=== PATIENT | female | born 1995 | race Caucasian/White ===

== ENCOUNTER → 2021-02-18 07:41 | Outpatient (CLI) | payer OTHER, SELFPAY ==
--- NOTE | 2021-02-18 | DI.US.S_ITS ---
LIMITED ULTRASOUND OF RIGHT BREAST: 02/18/2021 CLINICAL: Patient returns today to evaluate a focal asymmetry in the right breast. Color flow, real-time, and Doppler ultrasound of the right breast 4-6 o'clock region were performed. Rodriguez scale images of the real-time examination were reviewed. There is a 0.8 cm complicated cyst in the right breast at 5 o'clock middle depth 7 cm from the nipple. IMPRESSION: PROBABLY BENIGN The 0.8 cm complicated cyst in the right breast is probably benign. A follow-up ultrasound in 6 months is recommended. Prior examination from September 2020 is not yet available for comparison. If these images are received, an addendum will be issued. This exam was interpreted at Station ID: [id number]. Electronically Signed By: Jc Last M.D. jr/:02/19/2021 10:04:34 letter sent: Followup Recommended Ultrasound BI-RADS: 3 Probably benign
== END ==
PROVIDERS: PCP Family Medicine; Referring Provider Family Medicine; Visit Provider Family Medicine
DX: R92.8 Other abnormal and inconclusive findings on diagnostic imaging of breast (principal); N60.01 Solitary cyst of right breast
CPT/HCPCS: 76642

== ENCOUNTER → 2022-03-02 18:41 | Outpatient (CLI) | payer OTHER, SELFPAY ==
--- NOTE | 2022-03-02 18:42 | DI.MRI.S_ITS ---
PROCEDURE: MR ORBITS FACE NECK WO/W CON INDICATIONS: Benign lipomatous neoplasm of skin TECHNIQUE: Sagittal/axial/coronal T1 spin echo and STIR. After the administration of contrast, axial/coronal/sagittal T1 fast spin echo with fat saturation through the neck. COMPARISON: None. FINDINGS: Image quality: Limited by mascara, with susceptibility artifact. Lymph nodes: No enlarged nodes are seen throughout the neck. Vessels: Visualized vasculature appears normal, with normal flow voids and enhancement. Orbits: In this patient with this given history, scrutiny is given to lateral aspect of the left globe. At this site, there is an asymmetric nodule that demonstrates increased signal on T1 weighted imaging and decreased signal on STIR imaging, which measures up to 6 mm craniocaudal. On postcontrast imaging, no significant enhancement is seen. The central portion of this lesion demonstrates decreased signal on the fat saturated postcontrast T1 weighted images. Neck spaces: The oropharynx, nasopharynx and pharynx are unremarkable, without mucosal lesions seen. Vocal cords, false vocal cords, pyriform sinuses, epiglottis, vallecula, and tongue base all appear normal. Extramucosal spaces of the neck also appear unremarkable. Glands: The parotid and submandibular glands appear normal. Thyroid gland demonstrates no significant abnormality. Miscellaneous: Visualized brain and orbits appear normal. Lung apices appear clear. Superficial soft tissues appear normal. Visualized sinuses and mastoids appear clear. Bones: Marrow has normal overall signal. IMPRESSION: 6 mm fatty appearing lesion along the lateral aspect of the left globe, likely benign. Please correlate with known patient history and physical examination findings. Dictated by: Shashank Dee M.D. on 03/03/2022 at 9:45 Approved by: Shashank Dee M.D. on 03/03/2022 at 9:51
== END ==
PROVIDERS: PCP Family Medicine; Referring Provider Ophthalmology; Visit Provider Ophthalmology
DX: D17.39 Benign lipomatous neoplasm of skin and subcutaneous tissue of other sites (principal)
CPT/HCPCS: 70543; A9579

== ENCOUNTER → 2022-11-15 12:15 | Outpatient (CLI) | payer OTHER, SELFPAY ==
--- NOTE | 2022-11-15 | DI.US.S_ITS ---
PROCEDURE: US PELVIC COMPLETE INDICATIONS: BLEEDING AFTER INTERCOURSE / VAGINAL DISCHARGE TECHNIQUE: Real-time scanning was performed of the pelvic organs, with image documentation. Additional endovaginal scanning was necessary due to incomplete visualization of the adnexal and endometrial structures by transabdominal scanning. COMPARISON: None. FINDINGS: Uterus: Uterus is anteverted and normal in size at 8.0 x 4.2 x 4.9 cm. The myometrium is heterogeneous. The endometrium measures 4.0 mm combined thickness. There are 2 uterine fibroids. - 1.3 x 0.8 x 1.1 cm intramural fibroid in the posterior uterine wall at midline. -1.4 x 1.1 x 1.0 cm intramural fibroid in the posterior uterine wall at midline. Ovaries: The right ovary measures 2.2 x 1.6 x 1.1 cm, with a calculated ovarian volume of 2.0 cc. The left ovary measures 0.9 x 2.3 x 1.3 cm, with a calculated ovarian volume of 1.3 cc. The ovaries have a normal sonographic appearance. Less than 12 follicles can be seen in each ovary. No adnexal masses are seen. Other: No pathologic free abdominal or pelvic fluid. IMPRESSION: 1. Myomatous uterus with 2 uterine fibroids. 2. Normal ovaries. We strive to produce accurate, complete, and clear reports of imaging services. To assist us in improving patient care, this report was composed using standard report templates and voice recognition software. Therefore, it may contain abnormal punctuation, insertions and/or omissions. Occasional wrong-word or sound-alike substitutions may occur. Though we review the report and make efforts to correct it, we do recommend that the report be read carefully in proper context to recognize any text inaccuracies. Dictated by: Sabra Deleon M.D. on 11/15/2022 at 14:37 Approved by: Sabra Deleon M.D. on 11/15/2022 at 14:45
== END ==
PROVIDERS: PCP Registered Nurse; Referring Provider Registered Nurse; Visit Provider Registered Nurse
DX: N93.0 Postcoital and contact bleeding (principal); N89.8 Other specified noninflammatory disorders of vagina; D25.1 Intramural leiomyoma of uterus
CPT/HCPCS: 76830; 76856

== ENCOUNTER → 2023-03-03 15:05 | Outpatient (CLI) | payer OTHER, SELFPAY ==
--- NOTE | 2023-03-03 15:06 | DI.US.S_ITS ---
PROCEDURE: US OB <= 14 WEEKS FETUS INDICATIONS: Dating and viability OUTSIDE/PRIOR DATING DATA: Last menstrual period (LMP): Unknown. LMP-based estimated date of delivery (MEREDITH): Unknown. First dating scan (date and location): 03/03/2023. Estimated date of delivery (MEREDITH) from first dating scan: 10/10/2023. The calculations are made using the ultrasound MEREDITH of 10/10/2023. TECHNIQUE: Real-time scanning was performed of the fetus and maternal pelvic organs, with image documentation. Endovaginal scanning was also performed to better visualize the fetus and maternal ovaries. COMPARISON: None. FINDINGS: Embryo: [place]-rump length is 1.9 cm, 8 weeks 3 days Heart rate: 173. A yolk sac is seen. Maternal organs: Ovaries are within normal limits. IMPRESSION: Living early 1st trimester intrauterine with crown-rump length and heartbeat measuring 8 weeks 3 days We strive to produce accurate, complete, and clear reports of imaging services. To assist us in improving patient care, this report was composed using standard report templates and voice recognition software. Therefore, it may contain abnormal punctuation, insertions and/or omissions. Occasional wrong-word or sound-alike substitutions may occur. Though we review the report and make efforts to correct it, we do recommend that the report be read carefully in proper context to recognize any text inaccuracies. Dictated by: Moncho Spain M.D. on 03/03/2023 at 17:15 Approved by: Moncho Spain M.D. on 03/03/2023 at 17:17
== END ==
LOC: US 15:05
PROVIDERS: PCP Registered Nurse; Referring Provider Family Medicine; Visit Provider Family Medicine
DX: Z34.01 Encounter for supervision of normal first pregnancy, first trimester (principal); Z3A.08 8 weeks gestation of pregnancy
CPT/HCPCS: 76801; 76817

== ENCOUNTER → 2023-03-14 12:21 | Outpatient (CLI) | payer OTHER, SELFPAY ==
[2023-03-14 13:05] LABS: Add Manual Diff / Slide Review NO; Basophils Absolute Auto 100 /uL (0-100); Basophils Percent Auto 0.5 % (0-2); Eosinophils Absolute Auto 100 /uL (0-450); Eosinophils Percent Auto 0.8 % (2-4); Hematocrit 41.6 % (36-46); Hemoglobin 14.3 g/dL (12.0-16.0); Lymphocytes Absolute Auto 2300 /uL (1100-4500); Lymphocytes Percent Auto 22.4 % (25-40); Mean Corpuscular HGB Conc 34.3 % (30-36); Mean Corpuscular Hemoglobin 30.4 PG (26-34); Mean Corpuscular Volume 88.6 fL (80-100); Monocytes Absolute Auto 500 /uL (0-900); Monocytes Percent Auto 5.2 % (3-14); Neutrophils Absolute Auto 7100 /uL (1500-7000); Neutrophils Percent Auto 71.1 % (50-75); Platelet Count 356 X10^3/uL (150-400); Red Blood Cell Count 4.69 X10^6/uL (4.0-5.2); Red Cell Distribution Width 14.1 % (11.6-14.8); White Blood Cell Count 10.1 X10^3/uL (4.5-11.0)
[2023-03-14 16:55] LABS: Appearance Urine UA CLEAR; Bilirubin Urine UA NEGATIVE (NEGATIVE); Color Urine UA YELLOW; Glucose Urine UA NEGATIVE (Negative); Ketones Urine UA NEGATIVE (NEGATIVE); Leukocyte Esterase Urine UA NEGATIVE (NEGATIVE); Nitrite Urine UA POSITIVE (Negative); Occult Blood Urine UA NEGATIVE (Negative); Protein Urine UA NEGATIVE (Negative); Specific Gravity Urine UA <=1.005 (1.000-1.035); Urobilinogen Urine UA 0.2 E.U./dL (0.2)
[2023-03-14 17:10] LABS: HIV 1 & 2 Ab/Ag 4th Gen Combo NEGATIVE (NEGATIVE); Hep C Virus Ab w/Reflex Quant NEGATIVE s/c (NEGATIVE); Hepatitis B Surface Antigen NEGATIVE s/c (NEGATIVE); Rubella Antibody IgG 20.4 IU/mL (>15)
[2023-03-14 18:16] LABS: Urine N gonorrhoeae NOT DETECTED
[2023-03-14 18:22] LABS: pH Urine UA 6.5 (4.5-8.0)
[2023-03-14 18:24] LABS: Bacteria Urine Many (>30); Culture Indicated Urine Cult Not Indicated; RBC Urine 0-1/HPF (0-5/HPF); Squamous Epithelial Cell Urine 1-5 /HPF (0-5/HPF); WBC Urine 5-10/HPF (0-5/HPF)
[2023-03-14 19:02] LABS: Urine Chlamydia NOT DETECTED
[2023-03-15 06:32] LABS: RPR Screen Non Reactive (Non Reactive)
[2023-03-15 17:36] LABS: Varicella IgG Antibody <135 index (Immune >165)
== END ==
PROVIDERS: PCP Registered Nurse; Referring Provider Family Medicine; Visit Provider Family Medicine
DX: Z34.01 Encounter for supervision of normal first pregnancy, first trimester
CPT/HCPCS: 36415; 80055; 81003; 81015; 86787; 86803; 86850; 86900; 86901; 87077; 87086; 87186; 87389; 87491; 87591

== ENCOUNTER → 2023-03-24 15:59 | Outpatient (CLI) | payer OTHER, SELFPAY | PROVIDERS: PCP Registered Nurse; Referring Provider Family Medicine; Visit Provider Family Medicine | DX: Z34.81 Encounter for supervision of other normal pregnancy, first trimester (principal) | CPT/HCPCS: 36415 ==

== ENCOUNTER → 2023-04-27 12:40 | Outpatient (CLI) | payer OTHER, SELFPAY ==
[2023-04-27 15:16] LABS: Vitamin B12 719 pg/mL (239-931)
[2023-05-03 13:21] LABS: AFP Value 55.3 ng/mL (.); Gest Age on Col Date 16.3 weeks (.); Gestational Age EDD (.); Insulin Dep Diabetes No (.); OSBR Risk 1IN 2734 (.); Results Report (.); Test Results *Screen Negative* (.)
== END ==
PROVIDERS: PCP Registered Nurse; Referring Provider Family Medicine; Visit Provider Family Medicine
DX: Z34.00 Encounter for supervision of normal first pregnancy, unspecified trimester (principal)
CPT/HCPCS: 82105; 82607

== ENCOUNTER → 2023-05-23 15:09 | Outpatient (CLI) | payer OTHER, SELFPAY ==
--- NOTE | 2023-05-23 15:11 | DI.US.S_ITS ---
PROCEDURE: US OB >= 14 WEEKS FETUS INDICATIONS: ANATOMY OUTSIDE/PRIOR DATING DATA: Last menstrual period (LMP): Unknown. LMP-based estimated date of delivery (MEREDITH): Unknown. First dating scan (date and location): 03 03 2023. Estimated date of delivery (MEREDITH) from first dating scan: 10/10/2023. The calculations are made using the working MEREDITH of 10/10/2023. TECHNIQUE: Real-time scanning was performed of the fetus, with image documentation and biometric measurements. Endovaginal scanning: None COMPARISON: None. FINDINGS: General: A single living intrauterine gestation is present. Presentation: Variable Placenta: Placental position is posterior , without previa. Incidental placental venous wynne 9.9 x 1.8 x 1.3 cm Amniotic fluid index: 16.3 cm, normal range is 5-24 cm. Single deepest vertical pocket is 5.2 cm. heart rate: 147 beats per minute. Maternal cervical canal: 4.4 cm long. Normal lower limit is 2.5 cm. biometrics: Biparietal diameter: 4.9 cm, 20 week 6 day Head circumference: 17.8 cm, 20 week 2 day Abdominal circumference: 16.2 cm, 21 week 2 day Femur length: 3.2 cm, 19 week 6 day Clinically estimated gestational age: 20 week 0 day Composite gestational age from present scan: 20 week 4 day Estimated weight and percentile: 367 g, 80 percentile Anatomic survey: Neuro: Ventricles are non-dilated at less than 10 mm. Cisterna magna is normal at 3-11 mm. Cerebellum is normal in size and morphology. Nuchal skin fold: Normal at less than 6 mm between 14-21 weeks gestational age. Face: Nose and lips, facial profile are normal. Spine: No evidence for spina bifida. Heart: 4-chambered heart is present, with normal ventricular outflow tracts. Diaphragm: Diaphragm is intact. Stomach: Left-sided stomach is present. Kidneys: No hydronephrosis. Normal is less than 5 mm in 2nd trimester, less than 7 mm in 3rd trimester. Cord: 3-vessel cord has orthotopic insertion. Bladder: Normal in size. Extremities: All 4 extremities identified. IMPRESSION: Single live intrauterine consistent with 20 week 4 day gestation by current ultrasound. Normal anatomic survey Approved by: Norman Isidro M.D. on 05/23/2023 at 17:46
== END ==
PROVIDERS: PCP Registered Nurse; Referring Provider Family Medicine; Visit Provider Family Medicine
DX: Z34.02 Encounter for supervision of normal first pregnancy, second trimester (principal); Z3A.20 20 weeks gestation of pregnancy
CPT/HCPCS: 76811

== ENCOUNTER 2023-06-05 19:48 | Emergency (ER) | payer OTHER, SELFPAY ==
[2023-06-05 19:55] VITALS: BP 116/72; PULSE 77; RESP 16; TEMP 36.8; O2SAT 100; BMI 25.4
--- NOTE | 2023-06-05 20:10 | ED_ITS ---
HPI - Abdominal Pain General Chief Complaint: Abdominal Pain Stated Complaint: chest lower back abd pain, 22 wks Time Seen by Provider: 06/05/23 20:03 Source: patient Mode of arrival: Ambulatory History of Present Illness HPI narrative: 27-year-old at approximately 22 weeks gestational age presents with upper and lower abdominal cramping and nausea. Patient states that pain started in a ?band? across her upper abdomen and radiated around to her back. It eventually spread to her lower abdomen. Worse with deep breathing and standing up. Denies vaginal bleeding, loss of fluids, contractions. Reports good movement. Has established OBGYN care for this . She called the OB triage line and they referred her to the emergency department for workup. Related Data Home Medications Medication Instructions Recorded Confirmed escitalopram oxalate 10 mg tablet 10 mg PO DAILY 03/03/23 05/04/23 vitamin-ferrous sulfate tab PO 03/03/23 05/04/23 27 mg iron-folic acid 0.8 mg tablet azelaic acid 15 % topical gel topical 05/04/23 05/04/23 mecobalamin (vitamin B12) 1,000 1,000 mcg sublingual DAILY 05/04/23 05/04/23 mcg disintegrating tablet,sublingual Previous Rx's Medication Instructions Recorded ondansetron 4 mg disintegrating 4 mg PO Q8H PRN nausea and 03/14/23 tablet vomiting #30 tabs dicyclomine 20 mg tablet 20 mg PO QID #30 tabs 06/05/23 doxylamine 10 mg-pyridoxine (vit 1 tab PO BID #30 tabs 06/05/23 B6) 10 mg tablet,delayed release (Diclegis) Allergies Allergy/AdvReac Type Severity Reaction Status Date / Time cephalexin [From Keflex] AdvReac Hives Verified 06/05/23 19:55 Review of Systems Review of Systems Narrative: See HPI Patient History Medical History Bartholin cyst (~2012) Eczema Anisocoria Skin rash Surgical History History of breast reconstruction (~2020) History of removal of skin mole [place] teeth extracted Family History Father Skin cancer Grandfather Skin cancer Prostate cancer Hypertension Rheumatoid arthritis Grandmother Ovarian cyst H/O: hysterectomy Stroke Osteoarthritis Mother Arthritis Social History marital status: unmarried,living together number of children: 0 household members: significant other lives independently: Yes caregiver/support person: No housing: house pets and animals: Yes (2 cats, 1 dog) education level: college occupational status: employed current occupational exposures/hazards: No special philip needs: No travel history: over 6 months ago seatbelt use: always helmet use: Yes water heater temp set < 120 deg: Yes working smoke detector in home: Yes fire extinguisher in home: Yes carbon monox detector in home: Yes firearms in home: Yes firearms unloaded and locked: Yes do you feel safe at home: Yes Smoking Status: Never smoker second hand exposure: No alcohol intake: former substance use type: does not use during the past year weight has: decreased > 10 lbs well-balanced diet: about half the time daily servings fruits/ve-4 caffeine: Yes (aware of 200mg limit) Type(s) of exercise: aerobic and bicycling Smoking Status: Never smoker Substance Use Type: does not use Exam Initial Vital Signs Initial Vital Signs: Vital Signs Temperature 98.3 F 06/05/23 19:55 Pulse Rate 77 06/05/23 19:55 Respiratory Rate 16 06/05/23 19:55 Blood Pressure 116/72 06/05/23 19:55 Pulse Oximetry 100 06/05/23 19:55 Oxygen Delivery Method Room Air 06/05/23 19:55 Const: Awake, alert, no acute distress, nontoxic appearing Cardiac: regular rate, regular rhythm RESP: unlabored, clear bilaterally, no wheezing GI: Soft, generalized tenderness to deep palpation, uterine fundus palpable near umbilicus Skin: Warm, Dry, intact, no rashes Neuro: AO x3, CN II-XII grossly intact, moves all extremities Course Orders Ordered: ED Orders 06/05/23 20:25 Lipase Stat 06/05/23 20:27 CBC Auto Diff [Complete Blood Count AUTO DIFF] Stat CMP [Comprehensive Metabolic Panel] Stat 06/05/23 20:47 UA Complete [Urinalysis and Microscopic] Stat Discontinued Medications Acetaminophen (Acetaminophen 325 Mg Tablet) 975 mg PO NOW ONE Stop: 06/05/23 21:43 Last Admin: 06/05/23 21:48 Dose: 975 mg Documented By: JUNIE Dicyclomine HCl (Dicyclomine 10 Mg Capsule) 20 mg PO NOW ONE Stop: 06/05/23 20:10 Last Admin: 06/05/23 20:51 Dose: 20 mg Documented By: JUNIE Sodium Chloride (Normal Saline 0.9%) 1,000 mls @ 1,000 mls/hr IV BOLUS ONE Stop: 06/05/23 21:08 Last Infusion: 06/05/23 21:43 Dose: Infused Documented By: Admin: 06/05/23 20:51 Dose: 1,000 mls/hr Documented By: JUNIE Metoclopramide HCl (Metoclopramide 10 Mg/2 Ml Inj) 10 mg IV NOW ONE Stop: 06/05/23 20:10 Last Admin: 06/05/23 20:51 Dose: 10 mg Documented By: JUNIE Vital Signs Vital signs: Vital Signs - 8 hr 06/05/23 19:55 06/05/23 20:30 06/05/23 20:31 Temperature 98.3 F Pulse Rate 77 83 82 Respiratory Rate 16 20 20 Blood Pressure 116/72 Pulse Oximetry 100 100 100 Oxygen Delivery Method Room Air 06/05/23 20:31 Temperature Pulse Rate Respiratory Rate Blood Pressure 116/71 Pulse Oximetry Oxygen Delivery Method MDM - Abdominal Pain Differential Diagnosis Differential diagnosis: Likely abdominal pain, constipation and gastroenteritis Lab Data 06/05/23 20:27 06/05/23 20:27 Labs: Lab Results 06/05/23 06/05/23 06/05/23 Range/Units 20:25 20:27 20:47 WBC 12.6 H (4.5-11.0) X10^3/uL RBC 3.80 L (4.0-5.2) X10^6/uL Hgb 11.9 L (12.0-16.0) g/dL Hct 34.6 L (36-46) % MCV 91.0 (80-100) fL MCH 31.3 (26-34) PG MCHC 34.4 (30-36) % RDW 13.7 (11.6-14.8) % Plt Count 358 (150-400) X10^3/uL Neut % (Auto) 69.7 (50-75) % Lymph % (Auto) 23.1 L (25-40) % [place] % (Auto) 5.3 (3-14) % Eos % (Auto) 1.6 L (2-4) % Baso % (Auto) 0.3 (0-2) % Neut # (Auto) 8800 H (0564-4046) /uL Lymph # (Auto) 2900 (8947-1328) /uL [place] # (Auto) 700 (0-900) /uL Eos # (Auto) 200 (0-450) /uL Baso # (Auto) 0 (0-100) /uL Sodium 136 L (137-145) mmol/L Potassium 3.2 L (3.4-5.1) mmol/L Chloride 107 (98-107) mmol/L Carbon Dioxide 23 (22-32) mmol/L BUN 6 L (7-17) mg/dL Creatinine 0.37 L (0.52-1.04) mg/dL Estimated GFR > 60 (>60) mL/min BUN/Creatinine Ratio 16.2 (6-22) Glucose 90 (70-100) mg/dL Calcium 9.3 (8.4-10.2) mg/dL Total Bilirubin 0.3 (0.2-1.3) mg/dL AST 31 (14-36) IU/L ALT 31 (<35) IU/L Alkaline Phosphatase 102 (38-126) U/L Total Protein 6.8 (6.3-8.2) g/dL Albumin 3.8 (3.5-5.0) g/dL Globulin 3.0 (1.7-4.1) g/dL Albumin/Globulin Ratio 1.3 (1.0-2.8) Lipase 192 (23-300) U/L Urine Color Yellow Urine Appearance Clear Urine pH 6.0 (4.5-8.0) Ur Specific [place] 1.010 (1.000-1.035) Urine Protein Negative (Negative) Urine Glucose (UA) Negative (Negative) g/dL Urine Ketones Negative (NEGATIVE) Urine Occult Blood Negative (Negative) Urine Nitrate Negative (Negative) Urine Bilirubin Negative (NEGATIVE) Urine Urobilinogen 0.2 (0.2) E.U./dL Ur Leukocyte Esterase Negative (NEGATIVE) Urine RBC None seen (0-5/HPF) Urine WBC None seen (0-5/HPF) Ur Squamous Epith Cells None seen (0-5/HPF) Urine Bacteria None seen (None) Ur Culture Indicated? Cult not indicated Vol Urine Centrifuged 10ml (spun) Point of care testing: Urine Dip Bedside Urine Glucose Negative Bedside Urine Bilirubin - Negative Bedside Urine Ketone - Negative Urine Specific [place] 1.015 Bedside Urine Occult Blood - Negative Bedside Urine pH 6.0 Bedside Urine Protein - Negative Bedside Urine Urobilinogen - Negative Bedside Urine Nitrite - Negative Bedside Urine Leukocytes - Negative Esterase MDM Narrative Medical decision making narrative: Well-appearing patient with generalized abdominal cramping and nausea in 2nd trimester . Abdomen is soft, she reports generalized tenderness to deep palpation in all quadrants, there is no rebound or guarding or specific focality to the pain. Uterus is in appropriate position. heart tones in the 140s. Laboratory work is reviewed, there is leukocytosis with WBC count 12.6, hemoglobin 11.9, these are expected and normal in . Other laboratory work is without acute abnormalities. Electrolytes are within normal limits, lipase is normal. Urinalysis negative for bacteria or other signs of infection. Patient received IV fluids, Zofran, Bentyl. She was tolerating water without vomiting. Dr. Moya on-call OBGYN stated at this point only heart tones indicated from OB standpoint since patient is pre-viability still. Patient counseled on all lab findings, uncertain etiology of patient's symptoms, question if early gastroenteritis, however at this time there is very low suspicion for any other acute process such as cholecystitis or appendicitis based on the otherwise benign abdominal exam. Patient states that she has OBGYN follow up in the next 3 days. ED return precautions discussed at bedside. Discharge Plan Departure Patient Disposition: Home Clinical Impression: Abdominal pain Qualifiers: Abdominal location: generalized Qualified Code(s): R10.84 - Generalized abdominal pain Instructions: DI for Abdominal Pain-Adult Activity Restrictions/Additional Instructions: Diclegis can be used for nausea. Use the bentyl as prescribed for abdominal spasms. Follow up as scheduled with your OBGYN Prescriptions: New dicyclomine 20 mg tablet 20 mg PO QID Qty: 30 0RF doxylamine-pyridoxine (vit B6) [Diclegis] 10-10 mg tablet,delayed release (DR/EC) 1 tab PO BID Qty: 30 0RF No Action ondansetron 4 mg tablet,disintegrating 4 mg PO Q8H PRN (Reason: nausea and vomiting) Qty: 30 1RF azelaic acid 15 % gel topical mecobalamin (vitamin B12) 1,000 mcg tablet,disintegrating 1,000 mcg sublingual DAILY Rx Instructions: place tablet under tongue and allow to dissolve for at least30 secs before swallowing vit-ferrous sulfat-FA 27 mg iron- 0.8 mg tablet PO escitalopram oxalate 10 mg tablet 10 mg PO DAILY Referrals: Neeru Santoro ARNP [Primary Care Provider] - Stand Alone Forms: Patient Portal/API
[2023-06-05 20:30] VITALS: PULSE 83; RESP 20; O2SAT 100
[2023-06-05 20:31] VITALS: BP 116/71; PULSE 82; RESP 20; O2SAT 100
[2023-06-05] MEDS: DICYCLOMINE 10 MG CAPSULE 20 MG PO (20:51)
[2023-06-05] MEDS: METOCLOPRAMIDE 10 MG/2 ML INJ IV (20:51)
[2023-06-05] MEDS: SODIUM CHLORIDE 0.9% 1,000 ML 1000 ML IV (20:51)
[2023-06-05 21:04] LABS: Lipase 192 U/L (23-300)
[2023-06-05 21:09] LABS: Appearance Urine UA CLEAR; Bilirubin Urine UA NEGATIVE (NEGATIVE); Color Urine UA YELLOW; Glucose Urine UA NEGATIVE (Negative); Ketones Urine UA NEGATIVE (NEGATIVE); Leukocyte Esterase Urine UA NEGATIVE (NEGATIVE); Nitrite Urine UA NEGATIVE (Negative); Occult Blood Urine UA NEGATIVE (Negative); Protein Urine UA NEGATIVE (Negative); Urobilinogen Urine UA 0.2 E.U./dL (0.2)
[2023-06-05 21:17] LABS: Bacteria Urine None Seen; RBC Urine None Seen (0-5/HPF); Urine Volume 10mL (spun); WBC Urine None Seen (0-5/HPF)
[2023-06-05 21:18] LABS: Culture Indicated Urine Cult Not Indicated; Squamous Epithelial Cell Urine None Seen (0-5/HPF)
[2023-06-05 21:27] LABS: Add Manual Diff / Slide Review NO; Basophils Absolute Auto 0 /uL (0-100); Basophils Percent Auto 0.3 % (0-2); Eosinophils Absolute Auto 200 /uL (0-450); Eosinophils Percent Auto 1.6 % (2-4); Hematocrit 34.6 % (36-46); Hemoglobin 11.9 g/dL (12.0-16.0); Lymphocytes Absolute Auto 2900 /uL (1100-4500); Lymphocytes Percent Auto 23.1 % (25-40); Mean Corpuscular HGB Conc 34.4 % (30-36); Mean Corpuscular Hemoglobin 31.3 PG (26-34); Monocytes Absolute Auto 700 /uL (0-900); Monocytes Percent Auto 5.3 % (3-14); Neutrophils Absolute Auto 8800 /uL (1500-7000); Neutrophils Percent Auto 69.7 % (50-75); Platelet Count 358 X10^3/uL (150-400); Red Cell Distribution Width 13.7 % (11.6-14.8); White Blood Cell Count 12.6 X10^3/uL (4.5-11.0)
[2023-06-05 21:34] LABS: Alanine Aminotransferase 31 IU/L (<35); Albumin 3.8 g/dL (3.5-5.0); Albumin Globulin Ratio 1.3 (1.0-2.8); Alkaline Phosphatase 102 U/L (38-126); Aspartate Aminotransferase 31 IU/L (14-36); BUN Creatinine Ratio 16.2 (6-22); Bilirubin Total 0.3 mg/dL (0.2-1.3); Blood Urea Nitrogen 6 mg/dL (7-17); Calcium 9.3 mg/dL (8.4-10.2); Carbon Dioxide 23 mmol/L (22-32); Chloride 107 mmol/L (98-107); Estimated Glomerular Filt Rate > 60 mL/min (>60); Glucose 90 mg/dL (70-100); HEMOLYSIS < 15 (0-50); Potassium 3.2 mmol/L (3.4-5.1); Sodium 136 mmol/L (137-145); Total Protein 6.8 g/dL (6.3-8.2)
[2023-06-05] MEDS: ACETAMINOPHEN 325 MG TABLET 975 MG PO (21:48)
== END 2023-06-05 22:05 | disposition home or self-care (01) ==
PROVIDERS: Emergency Provider Emergency Medicine; PCP Registered Nurse
DX: O26.892 Other specified pregnancy related conditions, second trimester (principal); R10.84 Generalized abdominal pain; Z3A.22 22 weeks gestation of pregnancy
CPT/HCPCS: 36415; 80053; 81001; 81003; 83690; 85025; 96374; 99284; J2765

== ENCOUNTER → 2023-06-29 07:01 | Outpatient (CLI) | payer OTHER, SELFPAY ==
[2023-06-29 08:58] LABS: HEMOLYSIS < 15 (0-50); Iron 69 ug/dL (37-170)
[2023-06-29 09:03] LABS: GTT (PREG) 1 Hour PP 50gm Dose 112 mg/dL (76-139)
[2023-06-29 09:09] LABS: Percent Iron Saturation 15 % (15-50); Total Iron Binding Capacity 473 ug/dL (265-497); Transferrin 364 mg/dL (206-381)
== END ==
PROVIDERS: PCP Registered Nurse; Referring Provider Family Medicine; Visit Provider Family Medicine
DX: Z34.00 Encounter for supervision of normal first pregnancy, unspecified trimester (principal)
CPT/HCPCS: 36415; 82950; 83540; 83550

== ENCOUNTER → 2023-07-06 10:14 | Outpatient (CLI) | payer OTHER, SELFPAY ==
[2023-07-06 11:29] LABS: Ferritin 6 ng/mL (6-137)
[2023-07-06 13:10] LABS: Appearance Urine UA CLEAR; Bilirubin Urine UA NEGATIVE (NEGATIVE); Color Urine UA YELLOW; Glucose Urine UA NEGATIVE (Negative); Ketones Urine UA NEGATIVE (NEGATIVE); Leukocyte Esterase Urine UA NEGATIVE (NEGATIVE); Nitrite Urine UA NEGATIVE (Negative); Occult Blood Urine UA NEGATIVE (Negative); Protein Urine UA NEGATIVE (Negative); Urobilinogen Urine UA 0.2 E.U./dL (0.2)
[2023-07-06 13:14] LABS: Urine Volume 10mL (spun); pH Urine UA 5.5 (4.5-8.0)
[2023-07-06 13:16] LABS: Bacteria Urine None Seen; Culture Indicated Urine Cult Not Indicated; RBC Urine None Seen (0-5/HPF); Squamous Epithelial Cell Urine None Seen (0-5/HPF); WBC Urine None Seen (0-5/HPF)
== END ==
PROVIDERS: PCP Registered Nurse; Referring Provider Family Medicine; Visit Provider Family Medicine
DX: G25.81 Restless legs syndrome (principal); N94.89 Other specified conditions associated with female genital organs and menstrual cycle
CPT/HCPCS: 36415; 81001; 82728

== ENCOUNTER 2023-07-21 08:59 | Emergency (ER) | payer OTHER, SELFPAY ==
[2023-07-21] VITALS (8 sets, daily range): BP systolic 103–114; BP diastolic 60–72; PULSE 86–99; RESP 17–25; TEMP 36.6; O2SAT 98–99; BMI 28.1
--- NOTE | 2023-07-21 09:42 | ED.CHESTPAIN ---
HPI - Chest Pain General Chief Complaint: Chest Pain Stated Complaint: chest tightness, hot flashes, cold sweats Time Seen by Provider: 07/21/23 09:33 Source: patient Mode of arrival: Family Vehicle Limitations: no limitations History of Present Illness HPI narrative: Patient is a 27-year-old female currently 28 weeks presenting today with heart palpitations. She reports that she was sitting at her desk when she felt like her heart was fluttering she got dizzy some headache. Did not pass out. Minimal shortness of breath. No significant abdominal pain nausea or vomiting. No vaginal bleeding. She has had some heart palpitations off and on throughout but not quite like this. She still feels it a little bit she is noted to be mildly tachycardic overall appears well. She reports that she has night sweats which is not abnormal for her but no real fever. Related Data Home Medications Medication Instructions Recorded Confirmed escitalopram oxalate 10 mg tablet 10 mg PO DAILY 03/03/23 07/06/23 vitamin-ferrous sulfate tab PO 03/03/23 07/06/23 27 mg iron-folic acid 0.8 mg tablet azelaic acid 15 % topical gel topical 05/04/23 07/06/23 mecobalamin (vitamin B12) 1,000 1,000 mcg sublingual DAILY 05/04/23 07/06/23 mcg disintegrating tablet,sublingual Previous Rx's Medication Instructions Recorded ondansetron 4 mg disintegrating 4 mg PO Q8H PRN nausea and 03/14/23 tablet vomiting #30 tabs dicyclomine 20 mg tablet 20 mg PO QID #30 tabs 06/05/23 doxylamine 10 mg-pyridoxine (vit 1 tab PO BID #30 tabs 06/05/23 B6) 10 mg tablet,delayed release (Diclegis) ferumoxytol 510 mg/17 mL (30 510 mg (17 mL) IV Q3D 2 doses 07/06/23 mg/mL) intravenous solution (Feraheme) hydroxyzine pamoate 25 mg capsule 25 mg PO TID PRN restless leg(s) 07/18/23 (Vistaril) #90 caps Allergies Allergy/AdvReac Type Severity Reaction Status Date / Time cephalexin [From Keflex] AdvReac Hives Verified 07/21/23 09:26 Patient History Medical History Bartholin cyst (~2012) Eczema Anisocoria Skin rash Surgical History History of breast reconstruction (~2020) History of removal of skin mole [place] teeth extracted Family History Father Skin cancer Grandfather Skin cancer Prostate cancer Hypertension Rheumatoid arthritis Grandmother Ovarian cyst H/O: hysterectomy Stroke Osteoarthritis Mother Arthritis Social History marital status: unmarried,living together number of children: 0 household members: significant other lives independently: Yes caregiver/support person: No housing: house pets and animals: Yes (2 cats, 1 dog) education level: college occupational status: employed current occupational exposures/hazards: No special philip needs: No travel history: over 6 months ago seatbelt use: always helmet use: Yes water heater temp set < 120 deg: Yes working smoke detector in home: Yes fire extinguisher in home: Yes carbon monox detector in home: Yes firearms in home: Yes firearms unloaded and locked: Yes do you feel safe at home: Yes Smoking Status: Never smoker second hand exposure: No alcohol intake: former substance use type: does not use during the past year weight has: decreased > 10 lbs well-balanced diet: about half the time daily servings fruits/ve-4 caffeine: Yes (aware of 200mg limit) Type(s) of exercise: aerobic and bicycling Smoking Status: Never smoker alcohol intake frequency: 0-2 drinks per day Substance Use Type: does not use Exam Initial Vital Signs Initial Vital Signs: Vital Signs Temperature 98 F 07/21/23 09:21 Pulse Rate 99 H 07/21/23 09:21 Respiratory Rate 18 07/21/23 09:21 Blood Pressure 114/72 07/21/23 09:21 Pulse Oximetry 98 07/21/23 09:21 Oxygen Delivery Method Room Air 07/21/23 09:21 Course Orders Ordered: Discontinued Medications Sodium Chloride (Normal Saline 0.9%) 1,000 mls @ 1,000 mls/hr IV BOLUS ONE Stop: 07/21/23 10:47 Last Infusion: 07/21/23 11:07 Dose: Infused Documented By: Admin: 07/21/23 09:56 Dose: 1,000 mls/hr Documented By: RADHA Vital Signs Vital signs: Vital Signs - 8 hr 07/21/23 11:05 07/21/23 11:30 07/21/23 12:00 Pulse Rate 94 H 87 87 Respiratory Rate 25 H 17 19 Blood Pressure Pulse Oximetry 99 99 07/21/23 12:04 Pulse Rate Respiratory Rate Blood Pressure 103/68 Pulse Oximetry MDM - Chest Pain Lab Data 07/21/23 09:42 07/21/23 09:42 Labs: Lab Results 07/21/23 Range/Units 09:42 WBC 15.1 H (4.5-11.0) X10^3/uL RBC 3.50 L (4.0-5.2) X10^6/uL Hgb 10.8 L (12.0-16.0) g/dL Hct 31.3 L (36-46) % MCV 89.5 (80-100) fL MCH 30.9 (26-34) PG MCHC 34.5 (30-36) % RDW 13.3 (11.6-14.8) % Plt Count 354 (150-400) X10^3/uL Neut % (Auto) 77.9 H (50-75) % Lymph % (Auto) 15.5 L (25-40) % Humphreys % (Auto) 5.5 (3-14) % Eos % (Auto) 0.8 L (2-4) % Baso % (Auto) 0.3 (0-2) % Neut # (Auto) 22320 H (9002-3253) /uL Lymph # (Auto) 2300 (6744-7952) /uL [place]ys # (Auto) 800 (0-900) /uL Eos # (Auto) 100 (0-450) /uL Baso # (Auto) 100 (0-100) /uL PT 11.0 (9.4-12.5) SECONDS INR 1.0 (0.9-1.3) APTT 30 (25.1-36.5) SECONDS Sodium 133 L (137-145) mmol/L Potassium 3.7 (3.4-5.1) mmol/L Chloride 107 (98-107) mmol/L Carbon Dioxide 19 L (22-32) mmol/L BUN 7 (7-17) mg/dL Creatinine 0.37 L (0.52-1.04) mg/dL Estimated GFR > 60 (>60) mL/min BUN/Creatinine Ratio 18.9 (6-22) Glucose 103 H (70-100) mg/dL Calcium 8.3 L (8.4-10.2) mg/dL Magnesium 1.9 (1.6-2.3) mg/dL Total Bilirubin 0.4 (0.2-1.3) mg/dL AST 28 (14-36) IU/L ALT 23 (<35) IU/L Alkaline Phosphatase 113 (38-126) U/L Total Creatine Kinase 38 (30-135) U/L Troponin I < 0.012 (0.01-0.034) ng/mL Total Protein 6.4 (6.3-8.2) g/dL Albumin 3.7 (3.5-5.0) g/dL Globulin 2.7 (1.7-4.1) g/dL Albumin/Globulin Ratio 1.4 (1.0-2.8) Lipase 142 (23-300) U/L Urine Dip Bedside Urine Glucose Negative Bedside Urine Bilirubin - Negative Bedside Urine Ketone - Negative Urine Specific [place] 1.015 Bedside Urine Occult Blood - Negative Bedside Urine pH 6.0 Bedside Urine Protein - Negative Bedside Urine Urobilinogen - Negative Bedside Urine Nitrite - Negative ECG Data Attestation: I personally reviewed and interpreted this ECG as follows: Interpretation: Normal sinus rhythm rate 90 LA interval 128 QRS [address] changes voltage noted in lead 3 MDM Narrative Medical decision making narrative: Patient 27-year-old female overall appears well 28 weeks . Having some heart palpitations. Noted to be tachycardic with actually improves with rest and IV fluids. Blood work has been reviewed she is WBC 15.1 previously 12.6 thought to be secondary to . Also mild anemia hemoglobin 10.8 previously 11.9 with hematocrit 31.3 previously 34.6 also thought secondary to . Platelets 354 Sodium 133, potassium 3.7, chloride 107, carbon dioxide 19 BUN 7, creatinine 0.37, glucose 103, bilirubin 0.4, AST 28, ALT 23, troponin negative, lipase 142, urinalysis no protein no leukocytes no nitrates EKG has been reviewed without any ischemia Patient has no evidence of preeclampsia blood pressure has been stable she had no protein in her urine having some heart palpitations mildly tachycardic no evidence of infection. At this time recommend staying hydrated may require Holter monitor she has not hypoxic or in bleeding shortness of breath unlikely to be pulmonary embolism. Discharge Plan Departure Patient Disposition: Home Clinical Impression: Heart palpitations Instructions: DI for Palpitations Activity Restrictions/Additional Instructions: *You have been diagnosed with heart palpitations *What to do: At this time continue to increase fluids. Please follow-up with OBGYN *Continue to take medications as directed *Follow up with your primary care provider in 2-3 days or call [phone] *Return to ER if you should have increasing palpitations chest pain shortness of breath abdominal pain vaginal bleeding [or] any new, worsening or concerning symptoms Prescriptions: No Action ondansetron 4 mg tablet,disintegrating 4 mg PO Q8H PRN (Reason: nausea and vomiting) Qty: 30 1RF azelaic acid 15 % gel topical mecobalamin (vitamin B12) 1,000 mcg tablet,disintegrating 1,000 mcg sublingual DAILY Rx Instructions: place tablet under tongue and allow to dissolve for at least30 secs before swallowing ferumoxytol [Feraheme] 510 mg/17 mL (30 mg/mL) solution 510 mg IV Q3D Rx Instructions: Give over 30 minutes every 3-8 days for two doses. hydroxyzine pamoate [Vistaril] 25 mg capsule 25 mg PO TID PRN (Reason: restless leg(s)) Qty: 90 2RF vit-ferrous sulfat-FA 27 mg iron- 0.8 mg tablet PO escitalopram oxalate 10 mg tablet 10 mg PO DAILY dicyclomine 20 mg tablet 20 mg PO QID Qty: 30 0RF doxylamine-pyridoxine (vit B6) [Diclegis] 10-10 mg tablet,delayed release (DR/EC) 1 tab PO BID Qty: 30 0RF Referrals: Neeru Santoro ARNP [Primary Care Provider] - Stand Alone Forms: Patient Portal/API
[2023-07-21] MEDS: SODIUM CHLORIDE 0.9% 1,000 ML 1000 ML IV (09:56)
[2023-07-21 09:57] LABS: Add Manual Diff / Slide Review NO; Basophils Absolute Auto 100 /uL (0-100); Basophils Percent Auto 0.3 % (0-2); Eosinophils Absolute Auto 100 /uL (0-450); Eosinophils Percent Auto 0.8 % (2-4); Hematocrit 31.3 % (36-46); Hemoglobin 10.8 g/dL (12.0-16.0); Lymphocytes Absolute Auto 2300 /uL (1100-4500); Lymphocytes Percent Auto 15.5 % (25-40); Mean Corpuscular HGB Conc 34.5 % (30-36); Mean Corpuscular Hemoglobin 30.9 PG (26-34); Mean Corpuscular Volume 89.5 fL (80-100); Monocytes Absolute Auto 800 /uL (0-900); Monocytes Percent Auto 5.5 % (3-14); Neutrophils Absolute Auto 11700 /uL (1500-7000); Neutrophils Percent Auto 77.9 % (50-75); Platelet Count 354 X10^3/uL (150-400); Red Cell Distribution Width 13.3 % (11.6-14.8); White Blood Cell Count 15.1 X10^3/uL (4.5-11.0)
[2023-07-21 10:10] LABS: PTT Partial Thromboplastin Tim 30 SECONDS (25.1-36.5)
[2023-07-21 10:15] LABS: Alanine Aminotransferase 23 IU/L (<35); Albumin 3.7 g/dL (3.5-5.0); Albumin Globulin Ratio 1.4 (1.0-2.8); Alkaline Phosphatase 113 U/L (38-126); Aspartate Aminotransferase 28 IU/L (14-36); BUN Creatinine Ratio 18.9 (6-22); Bilirubin Total 0.4 mg/dL (0.2-1.3); Blood Urea Nitrogen 7 mg/dL (7-17); Calcium 8.3 mg/dL (8.4-10.2); Carbon Dioxide 19 mmol/L (22-32); Chloride 107 mmol/L (98-107); Creatine Kinase 38 U/L (30-135); Estimated Glomerular Filt Rate > 60 mL/min (>60); Globulin 2.7 g/dL (1.7-4.1); Glucose 103 mg/dL (70-100); HEMOLYSIS < 15 (0-50); Lipase 142 U/L (23-300); Magnesium 1.9 mg/dL (1.6-2.3); Potassium 3.7 mmol/L (3.4-5.1); Sodium 133 mmol/L (137-145); Total Protein 6.4 g/dL (6.3-8.2)
[2023-07-21 10:26] LABS: Troponin I < 0.012 ng/mL (0.01-0.034)
== END 2023-07-21 12:04 | disposition home or self-care (01) ==
PROVIDERS: Emergency Provider Emergency Medicine; PCP Registered Nurse
DX: O26.893 Other specified pregnancy related conditions, third trimester (principal); R00.2 Palpitations; R00.0 Tachycardia, unspecified; Z3A.28 28 weeks gestation of pregnancy
CPT/HCPCS: 36415; 80053; 81003; 82550; 83690; 83735; 84484; 85025; 85610; 85730; 93005; 99283; 99284

== ENCOUNTER → 2023-08-03 13:47 | Outpatient (CLI) | payer OTHER, SELFPAY | LOC: CAR 13:47 | PROVIDERS: PCP Registered Nurse; Referring Provider Family Medicine; Visit Provider Family Medicine | DX: R00.2 Palpitations (principal); R00.0 Tachycardia, unspecified | CPT/HCPCS: 93246 ==

== ENCOUNTER 2023-08-12 10:31 | Outpatient (CLI) | payer OTHER, SELFPAY | END 2023-08-12 11:40 | disposition home or self-care (01) | LOC: LABOR 11:01 → OB 08-15 06:17 | PROVIDERS: PCP Registered Nurse; Referring Provider Obstetrics & Gynecology; Visit Provider Obstetrics & Gynecology | DX: O26.893 Other specified pregnancy related conditions, third trimester (principal); R00.2 Palpitations; M54.9 Dorsalgia, unspecified; Z3A.31 31 weeks gestation of pregnancy | CPT/HCPCS: 59025; G0378; G0379 ==

== ENCOUNTER 2023-08-14 19:59 | Outpatient (CLI) | payer OTHER, SELFPAY ==
[2023-08-14 21:03] LABS: Add Manual Diff / Slide Review NO; Basophils Absolute Auto 100 /uL (0-100); Basophils Percent Auto 0.8 % (0-2); Eosinophils Absolute Auto 200 /uL (0-450); Eosinophils Percent Auto 1.5 % (2-4); Hemoglobin 11.6 g/dL (12.0-16.0); Lymphocytes Absolute Auto 2400 /uL (1100-4500); Lymphocytes Percent Auto 22.4 % (25-40); Mean Corpuscular HGB Conc 34.2 % (30-36); Mean Corpuscular Volume 93.5 fL (80-100); Monocytes Absolute Auto 900 /uL (0-900); Monocytes Percent Auto 8.6 % (3-14); Neutrophils Absolute Auto 7100 /uL (1500-7000); Neutrophils Percent Auto 66.7 % (50-75); Platelet Count 290 X10^3/uL (150-400); Red Blood Cell Count 3.64 X10^6/uL (4.0-5.2); Red Cell Distribution Width 16.5 % (11.6-14.8); White Blood Cell Count 10.6 X10^3/uL (4.5-11.0)
[2023-08-14 21:11] LABS: Alanine Aminotransferase 23 IU/L (<35); Albumin 3.6 g/dL (3.5-5.0); Albumin Globulin Ratio 1.3 (1.0-2.8); Alkaline Phosphatase 110 U/L (38-126); Aspartate Aminotransferase 32 IU/L (14-36); BUN Creatinine Ratio 8.8 (6-22); Bilirubin Total 0.4 mg/dL (0.2-1.3); Blood Urea Nitrogen 3 mg/dL (7-17); Calcium 8.9 mg/dL (8.4-10.2); Carbon Dioxide 18 mmol/L (22-32); Chloride 110 mmol/L (98-107); Estimated Glomerular Filt Rate > 60 mL/min (>60); Globulin 2.8 g/dL (1.7-4.1); Glucose 103 mg/dL (70-100); HEMOLYSIS < 15 (0-50); Potassium 3.7 mmol/L (3.4-5.1); Sodium 135 mmol/L (137-145); Total Protein 6.4 g/dL (6.3-8.2)
== END 2023-08-14 21:35 | disposition home or self-care (01) ==
LOC: LABOR 21:40 → OB 08-16 06:11
PROVIDERS: PCP Registered Nurse; Referring Provider Obstetrics & Gynecology; Visit Provider Obstetrics & Gynecology
DX: O26.893 Other specified pregnancy related conditions, third trimester (principal); R10.9 Unspecified abdominal pain; R11.2 Nausea with vomiting, unspecified; R19.7 Diarrhea, unspecified; Z3A.31 31 weeks gestation of pregnancy
CPT/HCPCS: 59025; 59050; 80053; 85025; G0378; G0379

== ENCOUNTER → 2023-09-03 10:29 | Outpatient (CLI) | payer OTHER, SELFPAY ==
[2023-09-03 12:15] LABS: TSH w/ Reflex to FT4 1.54 uIU/mL (0.47-4.68)
== END ==
PROVIDERS: PCP Registered Nurse; Referring Provider Family Medicine; Visit Provider Family Medicine
DX: Z34.00 Encounter for supervision of normal first pregnancy, unspecified trimester (principal); R00.2 Palpitations
CPT/HCPCS: 36415; 84443

== ENCOUNTER → 2023-09-05 16:43 | Outpatient (CLI) | payer OTHER, SELFPAY ==
--- NOTE | 2023-09-05 16:44 | DI.US.S_ITS ---
PROCEDURE: US OB FOLLOW UP INDICATIONS: size > dates OUTSIDE/PRIOR DATING DATA: Last menstrual period (LMP): Unknown. LMP-based estimated date of delivery (MEREDITH): Unknown. First dating scan (date and location): 03/13/2023. Estimated date of delivery (MEREDITH) from first dating scan: 10/10/2023. The calculations are made using the ultrasound MEREDITH of 10/10/2023. TECHNIQUE: Real-time scanning was performed of the fetus, with image documentation and biometric measurements. COMPARISON: [facility], , OB >= 14 WEEKS FETUS, 05/23/2023, 15:20. FINDINGS: General: A single living intrauterine gestation is present. Presentation: Vertex. Placenta: Placental position is posterior , without previa. Amniotic fluid index: 15.9 cm, normal range is 5-24 cm. Single deepest vertical pocket is 4.5 cm. heart rate: 135 beats per minute. Maternal cervical canal: Not measured cm long. biometrics: Biparietal diameter: 9.2 cm 37 weeks 2 days Head circumference: 33.1 cm 37 weeks 5 days Abdominal circumference: 31.9 cm 35 weeks 6 days Femur length: 6.8 cm 35 weeks 1 day Clinically estimated gestational age: 35 weeks 0 days Composite gestational age from present scan: 36 weeks 4 days Estimated weight and percentile: 2817 g, 75th percentile Other: Not applicable. IMPRESSION: Single live intrauterine with gestational age today of 36 weeks 4 days. weight is at the 75th percentile. \ We strive to produce accurate, complete, and clear reports of imaging services. To assist us in improving patient care, this report was composed using standard report templates and voice recognition software. Therefore, it may contain abnormal punctuation, insertions and/or omissions. Occasional wrong-word or sound-alike substitutions may occur. Though we review the report and make efforts to correct it, we do recommend that the report be read carefully in proper context to recognize any text inaccuracies. Dictated by: Flor Lamar M.D. on 09/06/2023 at 13:25 Approved by: Flor Lamar M.D. on 09/06/2023 at 13:26
== END ==
PROVIDERS: PCP Registered Nurse; Referring Provider Family Medicine; Visit Provider Family Medicine
DX: Z34.03 Encounter for supervision of normal first pregnancy, third trimester (principal); Z3A.36 36 weeks gestation of pregnancy
CPT/HCPCS: 76816

== ENCOUNTER → 2023-09-13 16:59 | Outpatient (CLI) | payer OTHER, SELFPAY ==
[2023-09-14 16:58] LABS: Strep Grp B PCR NEG for Grp B Strep
== END ==
PROVIDERS: PCP Registered Nurse; Visit Provider Family Medicine
DX: Z34.90 Encounter for supervision of normal pregnancy, unspecified, unspecified trimester (principal); Z3A.36 36 weeks gestation of pregnancy
CPT/HCPCS: 87653

== ENCOUNTER → 2023-09-28 13:43 | Outpatient (CLI) | payer OTHER, SELFPAY ==
--- NOTE | 2023-09-28 13:45 | DI.ECHO.S_ITS ---
[facility] : : [id number] : : [place] : : [id number] : : Phone: [phone] Echocardiogram Report + + :Name: PEGGY BATES Study Date: 09/28/2023 Height: 64.5 in: :[facility] ReadingLocation: Weight: 185 lb : : Gender: Female BSA: 1.9 m2 : :: 1995 Age: 27 yrs BP: 119/79 mmHg: :Reason For Study: PALPITATIONS, AV BLOCK ON ZIO : :Ordering Physician: AMADOU, : :TERI Vicente Performed By: Luisa Simpson : :Referring: APRIL TOBAR R : + + Interpretation Summary The ejection fraction is estimated to be 60-65%. Diastolic parameters suggest probable normal left ventricular diastolic function and normal filling pressures. The right ventricle is normal in size and function. No significant valvular abnormalities. Pulmonary artery pressures cannot be estimated because of the lack of a measurable TR jet velocity but the IVC suggests a CVP of around 3 mmHg. Procedure: A two-dimensional transthoracic echocardiogram with color flow and Doppler was performed. The study quality was technically adequate. There is no prior echocardiogram noted for this patient. The patient was in sinus rhythm with heart rates between 85-100 bpm during the exam. Left Ventricle: The left ventricle is normal in size and wall thickness. The ejection fraction is estimated to be 60-65%. Diastolic parameters suggest probable normal left ventricular diastolic function and normal filling pressures. Right Ventricle: The right ventricle is normal in size and function. Atria: The left atrial size is normal. Right atrial size is normal. There is no Doppler evidence for an interatrial shunt. Mitral Valve: The mitral valve is normal in structure and function. There is trace mitral regurgitation. Aortic Valve: The aortic valve is trileaflet. The aortic valve opens well. There is no aortic valve stenosis. No aortic regurgitation is present. Tricuspid Valve: The tricuspid valve is normal in structure and function. There is trace tricuspid regurgitation. Pulmonary artery pressures cannot be estimated because of the lack of a measurable TR jet velocity but the IVC suggests a CVP of around 3 mmHg. Pulmonic Valve: The pulmonic valve leaflets are thin and pliable; valve motion is normal. There is mild pulmonic regurgitation. Great Vessels: The aortic root is normal size. The dimensions of the ascending aorta are normal. The IVC is of normal diameter and collapses greater than 50% with a sniff. This suggests a low right atrial pressure of 3 mm Hg. Pericardium/ Pleura There is no pericardial effusion. There is no pleural effusion. MMode/2D Measurements & Calculations LVIDd: 4.7 cm LVOT diam: 2.0 cm LVIDs: 2.9 cm Ao root diam: 2.4 cm FS: 38.3 % asc Aorta Diam: 2.5 cm IVSd: 0.67 cm Ao Arch Diam (Prox Trans): 2.1 cm LVPWd: 0.63 cm LV saha. diameter/BSA (cm/m^2): 2.5 LV sys. diameter/BSA (cm/m^2): 1.5 LA A2 area: 13.0 cm2 RA long axis: 4.1 cm LA A4 area: 14.4 cm2 RA area: 12.1 cm2 LA length (vol): 4.5 cm RA vol: 30.5 ml LA vol: 35.1 ml RA : 16.0 ml/m2 LA vol index: 18.4 ml/m2 IVC diam: 0.79 cm RVD1 (basal): 3.4 cm TAPSE: 2.1 cm Doppler Measurements & Calculations Ao V2 max: 127.1 cm/sec LVOT Max Freddie: 92.2 cm/sec Ao V2 mean: 97.3 cm/sec LV V1 max P.4 mmHg Ao max P.5 mmHg LV V1 VTI: 16.1 cm Ao mean P.0 mmHg PHYLICIA(I,D): 2.3 cm2 Ao V2 VTI: 21.5 cm PHYLICIA(V,D): 2.2 cm2 sev ratio: 0.75 PHYLICIA indexed to BSA (cm^2/m^2): 1.2 MV E max freddie: 76.0 cm/sec TR max freddie: 245.5 cm/sec MV A max freddie: 66.1 cm/sec TR max P.1 mmHg MV E/A: 1.1 PA V2 max: 111.3 cm/sec Med Peak E' Freddie: 8.4 cm/sec PA V2 mean: 81.6 cm/sec E/E' med: 9.0 PA mean P.9 mmHg Lat Peak E' Freddie: 11.6 cm/sec PA pr(Accel): 44.7 mmHg E/E' lat: 6.6 E/e' average: 7.8 MV dec time: 0.15 sec SVLVOT): 49.4 ml Reading Physician:03:45 PM
== END ==
PROVIDERS: PCP Registered Nurse; Referring Provider Family Medicine; Visit Provider Family Medicine
DX: O99.419 Diseases of the circulatory system complicating pregnancy, unspecified trimester (principal); I37.1 Nonrheumatic pulmonary valve insufficiency; R00.2 Palpitations
CPT/HCPCS: 93306

== ENCOUNTER → 2023-09-28 13:47 | Outpatient (CLI) | payer OTHER, SELFPAY ==
--- NOTE | 2023-09-28 13:48 | DI.US.S_ITS ---
PROCEDURE: US OB FOLLOW UP INDICATIONS: FU GROWTH,CONCERN FOR DEVELOPING MACROSOMIA OUTSIDE/PRIOR DATING DATA: Last menstrual period (LMP): Unknown. LMP-based estimated date of delivery (MEREDITH): Unknown. First dating scan (date and location): 03/03/2023. Estimated date of delivery (MEREDITH) from first dating scan: 10/10/2023. The calculations are made using the ultrasound MEREDITH of 10/10/2023. TECHNIQUE: Real-time scanning was performed of the fetus, with image documentation and biometric measurements. COMPARISON: [facility], , OB FOLLOW UP, 09/05/2023, 17:00. FINDINGS: General: A single living intrauterine gestation is present. Presentation: Vertex. Placenta: Placental position is posterior , without previa. Amniotic fluid index: 6.3 cm, normal range is 5-24 cm. Single deepest vertical pocket is 2.4 cm. heart rate: 125 beats per minute. Maternal cervical canal: 3.1 cm long. Normal lower limit is 2.5 cm. biometrics: Biparietal diameter: 9.8 cm 40 weeks 1 day Head circumference: 35.3 cm 41 weeks 2 days Abdominal circumference: 35.8 cm 35 weeks 5 days Femur length: 37 cm 39 weeks 3 days Clinically estimated gestational age: 38 weeks 6 days Composite gestational age from present scan: 40 weeks 1 day Estimated weight and percentile: 3911 g 88th percentile Other: Not applicable. IMPRESSION: Single live intrauterine with gestational age today of 40 weeks 1 day. JESSICA is at the lower limits of normal with deepest vertical pocket measuring 2.4 cm. Appropriate interval growth. We strive to produce accurate, complete, and clear reports of imaging services. To assist us in improving patient care, this report was composed using standard report templates and voice recognition software. Therefore, it may contain abnormal punctuation, insertions and/or omissions. Occasional wrong-word or sound-alike substitutions may occur. Though we review the report and make efforts to correct it, we do recommend that the report be read carefully in proper context to recognize any text inaccuracies. Dictated by: Flor Lamar M.D. on 09/28/2023 at 20:56 Approved by: Flor Lamar M.D. on 09/28/2023 at 20:59
== END ==
PROVIDERS: PCP Registered Nurse; Referring Provider Family Medicine; Visit Provider Family Medicine
DX: Z36.2 Encounter for other antenatal screening follow-up (principal); O99.413 Diseases of the circulatory system complicating pregnancy, third trimester; I37.1 Nonrheumatic pulmonary valve insufficiency; R00.2 Palpitations; Z3A.40 40 weeks gestation of pregnancy
CPT/HCPCS: 76816; 93306

== ENCOUNTER → 2023-10-03 13:42 | Outpatient (CLI) | payer OTHER, SELFPAY ==
--- NOTE | 2023-10-03 13:43 | DI.US.S_ITS ---
PROCEDURE: US OB LIMITED INDICATIONS: JESSICA, borderline on last US OUTSIDE/PRIOR DATING DATA: Last menstrual period (LMP): Unknown LMP-based estimated date of delivery (MEREDITH): Unknown First dating scan (date and location): 03/03/2023. Estimated date of delivery (MEREDITH) from first dating scan: 10/10/2023 The calculations are made using the working MEREDITH of 10/10/2023. TECHNIQUE: Real-time scanning was performed of the fetus for biophysical profile, with image documentation. Endovaginal scanning: Not performed. COMPARISON: [facility], OB FOLLOW UP, 09/05/2023, 17:00. [facility], OB FOLLOW UP, 09/28/2023, 14:30. FINDINGS: General: A single living intrauterine gestation is present. Presentation: Vertex Placenta: Placental position is posterior, without previa. Amniotic fluid index: 23.2 cm, normal range is 5-24 cm. Single deepest vertical pocket is 7.5 cm. heart rate: 140 beats per minute. Maternal cervical canal: Not well seen. Estimated gestational age from initial scan: 39 weeks, 0 day IMPRESSION: 1. Single live intrauterine gestation with fetus in vertex presentation and spine towards maternal left side. heart rate is 140 beats per minute. Normal JESSICA at 23.2 cm. 2. Cervix is not well visualized due to position. Placenta location is posterior without previa. We strive to produce accurate, complete, and clear reports of imaging services. To assist us in improving patient care, this report was composed using standard report templates and voice recognition software. Therefore, it may contain abnormal punctuation, insertions and/or omissions. Occasional wrong-word or sound-alike substitutions may occur. Though we review the report and make efforts to correct it, we do recommend that the report be read carefully in proper context to recognize any text inaccuracies. Dictated by: Gil Devi M.D. on 10/03/2023 at 18:06 Approved by: Gil Devi M.D. on 10/03/2023 at 18:09
== END ==
PROVIDERS: PCP Registered Nurse; Referring Provider Family Medicine; Visit Provider Family Medicine
DX: Z34.03 Encounter for supervision of normal first pregnancy, third trimester (principal); Z3A.39 39 weeks gestation of pregnancy
CPT/HCPCS: 76815

== ENCOUNTER 2023-10-03 16:50 | Inpatient (IN) | payer OTHER, SELFPAY ==
--- NOTE | 2023-10-03 17:27 | P.HPOB_ITS ---
OB HPI Date/Time Date of admission: 10/03/23 Date Patient Seen: 10/03/23 Time Patient Seen: 17:27 History of Present Condition Chief complaint: INDUCTION : 1 Para: 0 Estimated Date of Delivery: 10/10/23 Estimated Gestational Age (weeks): 39w0d Narrative: [place] is a 27 year old female presenting at 39w0d for IOL for macrosomia. complicated by MDD, ROSEMARIE on Lexapro; rubella non immune; macrosomia. Feeling good. No contractions, VB, LOF. Good FM. History of Present care: good care Dating criteria: based on 1st trimester US only [facility] Medical History (Updated 08/29/23 @ 16:46 by Pilar Graham MD) Heart palpitations Bartholin cyst (~2012) Eczema Anisocoria Skin rash Surgical History History of breast reconstruction (~2020) History of removal of skin mole [place] teeth extracted Family History Father Skin cancer Grandfather Skin cancer Prostate cancer Hypertension Rheumatoid arthritis Grandmother Ovarian cyst H/O: hysterectomy Stroke Osteoarthritis Mother Arthritis Social History marital status: unmarried,living together number of children: 0 household members: significant other lives independently: Yes caregiver/support person: No housing: house pets and animals: Yes (2 cats, 1 dog) education level: college occupational status: employed current occupational exposures/hazards: No special philip needs: No travel history: over 6 months ago seatbelt use: always helmet use: Yes water heater temp set < 120 deg: Yes working smoke detector in home: Yes fire extinguisher in home: Yes carbon monox detector in home: Yes firearms in home: Yes firearms unloaded and locked: Yes do you feel safe at home: Yes Smoking Status: Never smoker second hand exposure: No alcohol intake: former substance use type: does not use during the past year weight has: decreased > 10 lbs well-balanced diet: about half the time daily servings fruits/ve-4 caffeine: Yes (aware of 200mg limit) Type(s) of exercise: aerobic and bicycling Meds Home Medications and Allergies Home Medications Medication Instructions Recorded Confirmed Type escitalopram oxalate 10 mg tablet 10 mg PO DAILY 03/03/23 10/03/23 History vitamin-ferrous sulfate tab PO 03/03/23 10/03/23 History 27 mg iron-folic acid 0.8 mg tablet mecobalamin (vitamin B12) 1,000 1,000 mcg sublingual DAILY 05/04/23 10/03/23 History mcg disintegrating tablet,sublingual hydroxyzine pamoate 25 mg capsule 25 mg PO TID PRN restless leg(s) 07/18/23 10/03/23 Rx (Vistaril) #90 caps Allergies Allergy/AdvReac Type Severity Reaction Status Date / Time cephalexin [From Keflex] AdvReac Hives Verified 10/03/23 15:21 OB Exam Narrative Exam Narrative: GEN: NAD, well appearing, pleasant CV: RRR Pulm:normal WOB, CTAB Skin: no visible rashes, WWP Psych: normal affect Neuro: normal gait, symmetric movement Cervix: CTH Position with BSUS vertex FHT category 1 Assessment and Plan Assessment and Plan Assessment and Plan narrative: IOL Routine orders CBC, T&S on admit Cervidil overnight Monitoring per routine MDD, ROSEMARIE Continue Lexapro CODE full DVT prophylaxis ambulation Diet regular Time-Based Coding :: [TOTAL MINUTES] spent with patient and on the chart (including review of chart, obtaining history, exam, reviewing outside data, placing orders, documenting exam and treatment plan, and counseling patient) on [DATE].
[2023-10-03 18:29] LABS: Add Manual Diff / Slide Review NO; Basophils Absolute Auto 100 /uL (0-100); Basophils Percent Auto 0.7 % (0-2); Eosinophils Absolute Auto 100 /uL (0-450); Eosinophils Percent Auto 0.8 % (2-4); Hematocrit 37.2 % (36-46); Hemoglobin 12.4 g/dL (12.0-16.0); Lymphocytes Absolute Auto 2300 /uL (1100-4500); Lymphocytes Percent Auto 18.6 % (25-40); Mean Corpuscular HGB Conc 33.4 % (30-36); Mean Corpuscular Hemoglobin 31.1 PG (26-34); Mean Corpuscular Volume 93.1 fL (80-100); Monocytes Absolute Auto 700 /uL (0-900); Monocytes Percent Auto 5.6 % (3-14); Neutrophils Absolute Auto 9100 /uL (1500-7000); Neutrophils Percent Auto 74.3 % (50-75); Platelet Count 306 X10^3/uL (150-400); Red Cell Distribution Width 15.5 % (11.6-14.8); White Blood Cell Count 12.2 X10^3/uL (4.5-11.0)
[2023-10-03] MEDS: DINOPROSTONE VAG (CERVIDIL) 10 MG VAG (18:29)
[2023-10-03 19:54] VITALS: BP 115/68
[2023-10-03] MEDS: hydrOXYzine HCL 25 MG TABLET 50 MG PO (20:55)
--- NOTE | 2023-10-04 07:49 | PM.OBPNLAB ---
Date/Time Date Patient Seen: 10/04/23 Time Patient Seen: 07:49 Pain Control Pain control: tolerating well Pelvic Exam Dilation (cm): 1 Effacement (%): 30 station: -3 Contractions Contractions on admission: irregular Contraction intensity: Mild Status status: Category l Heart Rate Baseline: 120 Monitor Accelerations: Present Monitor Decelerations: Absent Monitor Variability: Moderate Assessment and Plan Assessment: induction ongoing Comments: S/p cervidil x 12 hr, cervix still unfavorable - proceed with cytotec q4h Repeat exam in 4 hr Continuous monitoring, cat 1 overnight GBS negative Pain controlled currently
[2023-10-04] MEDS: miSOPROStoL 25 MCG TABLET VAG ×2 (07:53→13:20)
[2023-10-04] MEDS: ESCITALOPRAM 10 MG TABLET PO (08:59)
[2023-10-04] MEDS: PRENATAL VIT,CALC/IRON/FOLIC 1 TABLET 1 TAB PO (08:59)
--- NOTE | 2023-10-04 13:14 | PM.OBPNLAB ---
Date/Time Date Patient Seen: 10/04/23 Time Patient Seen: 12:40 Pain Control Pain control: tolerating well Pelvic Exam Dilation (cm): 1 Effacement (%): 40 station: -3 Amniotic membrane status: Intact Contractions Contractions on admission: regular (3-6 minutes, mild, non painful) Contraction intensity: Mild Status status: Category l Heart Rate Baseline: 125 Monitor Accelerations: Present Monitor Decelerations: Absent Monitor Variability: Moderate Assessment and Plan Assessment: induction ongoing Comments: FB placed, difficult visualization but appears to be appropriate. Continue traction. Continue vaginal miso - s/p 1 dose, due for second Repeat exam when FB comes out - likely continue with miso until this happens FHT cat 1 GBS neg Minimal pain now
[2023-10-04] MEDS: LACTATED RINGERS 1,000 ML 100 ML IV (16:15)
--- NOTE | 2023-10-04 17:21 | PM.OBPNLAB ---
Date/Time Date Patient Seen: 10/04/23 Time Patient Seen: 17:21 Pain Control Pain control: epidural Pelvic Exam Dilation (cm): 2 Effacement (%): 80 station: -3 Amniotic membrane status: Intact Comments: per RN Contractions Contractions on admission: regular (every 2-3) Contraction intensity: Strong/Firm Status status: Category l Assessment and Plan Assessment: induction ongoing Comments: FB remains in place - repeat exam when falls out, contractions too strong and frequent to continue miso Likely start pit augmentation at that point Pain controlled with epidural GBS negative FHT cat 1
--- NOTE | 2023-10-04 17:25 | PM.AN.REGBLK ---
[facility] <Lesley Miles MD - Last Filed: 10/05/23 15:47> Pre-procedure Procedure: Continuous Lumbar Epidural for L&D (with dural puncture) Attending OB provider: Pilar Graham PMH/JANETTE narrative: 27yo F in labor (IOL) requesting labor epidural. See pre-anesthesia eval for details. Hx: No personal or family history of anesthesia problems. ASA Class: II Labs: Hct 37.2 % (36-46) 10/03/23 18:15 Plt Count 306 X10^3/uL (150-400) 10/03/23 18:15 Medications: Current Medications Generic Name Dose Route Start Last Admin Trade Name Freq PRN Reason Stop Dose Admin Butorphanol Tartrate 0.5 mg 10/04/23 17:22 Butorphanol 1 Mg/Ml Vial IV 10/05/23 17:23 Q3HR PRN PRURITUS Calcium Carbonate 1,000 mg 10/03/23 17:03 Calcium Carbonate 500 Mg Tab PO Q4HR PRN Dyspepsia Carboprost Tromethamine 250 mcg 10/03/23 17:03 Carboprost 250 Mcg/Ml Ampul IM Q90M PRN Bleeding Diphenhydramine HCl 25 mg 10/04/23 17:17 Diphenhydramine 50 Mg/Ml Vial IV Q10M PRN Pruritis Diphenhydramine HCl 25 mg 10/04/23 17:22 Diphenhydramine 50 Mg/Ml Vial IV 10/05/23 17:23 Q3HR PRN PRURITUS Ephedrine Sulfate 10 mg 10/04/23 17:17 Ephedrine 50 Mg/Ml Vial IV Q5M PRN Blood pressure decrease more than 20% of baseline. Escitalopram Oxalate 10 mg 10/04/23 09:00 10/04/23 08:59 Escitalopram 10 Mg Tablet PO 10 mg DAILY TAMARA Administration Fentanyl 50 mcg 10/03/23 17:03 Fentanyl 100 Mcg/2 Ml Inj IV Q1H PRN Pain, Moderate (4-6) Hydroxyzine HCl 50 mg 10/03/23 17:03 10/03/23 20:55 Hydroxyzine Hcl 25 Mg Tablet PO 50 mg NOW PRN Administration Sleep Oxytocin/Lactated Ringer's 30 unit in 500 mls @ 200 mls/hr 10/03/23 17:03 Oxytocin Premix IV CONT PRN Bleeding Protocol Tranexamic Acid 1,000 mg/ 100 mls @ 600 mls/hr 10/03/23 17:03 Sodium Chloride IV NOW PRN Bleeding Lactated Ringer's 1,000 mls @ 100 mls/hr 10/03/23 17:15 Lactated Ringers IV CONT TAMARA FENT 2MCG/ML BUPIV 0.125% EPI 200 mcg in 100 mls @ 6 mls/hr 10/04/23 17:30 Fentanyl/Bupiv/Ns 2mcg/Ml - 0.125% EPIDURAL CONT TAMARA Lidocaine HCl 20 ml 10/03/23 17:03 Lidocaine 1% 20 Ml INJ INTRA-OP PRN Post Delivery Methylergonovine Maleate 0.2 mg 10/03/23 17:03 Methylergonovine 0.2 Mg/Ml Vial IM NOW PRN Bleeding Methylergonovine Maleate 0.2 mg 10/03/23 17:03 Methylergonovine 0.2 Mg Tablet PO Q6HR PRN Heavy Bleeding Metoclopramide HCl 10 mg 10/04/23 17:22 Metoclopramide 10 Mg/2 Ml Inj IV 10/05/23 17:23 Q4H PRN Nausea Misoprostol 400 mcg 10/03/23 17:03 Misoprostol 200 Mcg Tablet SL NOW PRN Bleeding Misoprostol 800 mcg 10/03/23 17:03 Misoprostol 200 Mcg Tablet IN NOW PRN Bleeding Misoprostol 25 mcg 10/04/23 08:00 10/04/23 13:20 Misoprostol 25 Mcg Tablet VAG 25 mcg Q4H TAMARA Administration Nalbuphine HCl 2.5 mg 10/04/23 17:17 Nalbuphine 20 Mg/Ml Ampul IV Q10M PRN Pruritis Naloxone HCl 0.2 mg 10/03/23 17:03 Naloxone 0.4 Mg/Ml Vial IV Q2MIN PRN Opiate Reversal Mecobalamin (Vitamin 1,000 mcg 10/04/23 09:00 B12) 1,000mcg SL Disintegrating Tab DAILY TAMARA Ondansetron HCl 4 mg 10/03/23 17:03 Ondansetron 4 Mg/2 Ml Inj IV Q4HR PRN Nausea And Vomiting Ondansetron HCl 4 mg 10/04/23 17:22 Ondansetron 4 Mg/2 Ml Inj IV 10/05/23 17:23 Q6HR PRN Nausea Oxytocin 10 unit 10/03/23 17:03 Oxytocin 10 Unit/Ml Vial IM NOW PRN Bleeding Vit/Calcium/Iron/Folic Ac 1 tab 10/04/23 09:00 10/04/23 08:59 Vit,Calc/Iron/Folic 1 Tablet PO 1 tab DAILY TAMARA Administration Allergies: Allergies Allergy/AdvReac Type Severity Reaction Status Date / Time cephalexin [From Keflex] AdvReac Hives Verified 10/03/23 15:21 Procedure Insertion date: 10/04/23 Insertion time: 16:53 Prep/Local: 1% lidocaine (chloraprep) Interspace: L4-5 Patient position: sitting Needle: 18 gauge Azimuthtead (plus 22G 5in pencan spinal needle for dural puncture) Loss of resistance with: saline PAULA at (cm): 4 Catheter placed at SKIN (cm): 9 Catheter in SPACE (cm): 5 Insertion: Yes CSF, No Blood, No Paresthesia with insertion, No Paresthesia with injection and No Test dose reaction Initial Medications TEST DOSE time: 16:57 TEST DOSE: 1.5% lidocaine with epinephrine 1:200k (mL): 3 BOLUS DOSE time: 17:02 BOLUS DOSE (mL): 2 BOLUS DOSE med: other (same as test dose ) Infusion INFUSION: 0.125% bupivacaine and with fentanyl 2 mcg/mL Initial rate (mL/hr): 8 Subsequent interventions: 2345: 5mL 0.25% bupiv for diminished analgesia, increased sensation lower abdomen, perineum. Catheter tip 11cm at skin. Rate from 8 to 11mL/h. 2400: no change. Catheter pulled from 11 to 9cm at skin. 5mL 2% lido. Good response. 10/05/23 1054: Pt reports 6-7/10 pain with contractions. She describes crampy pain in her LLQ that is present constantly and radiates toward her central lower abdomen and is worse with contractions. Loss of temperature checked, and pt had loss throughout LEFT side and on lower right side. Discussed with pt that since the epidural appears to be working well, especially on the left side, this is not just contraction pain; it may be due to baby's position and the epidural may not completely cover that pain. Epidural bolused with lidocaine 2% 10 ml. Pt reports pain down to 4/10 about 15 minutes after bolus but says she is more comfortable. About half an hour after bolus, pt reported 0/10 pain, including crampy LLQ pain. KR 1315: Called for epidural bolus @ 12:43; was finishing a case and could not get to L&D sooner. Pt is 9 cm and contractions are every [address] Graham at bedside. Pt experienced good relief after last bolus, although short-lived. She now appears very uncomfortable and tense but breathing through contractions well. Bolused about 13:10 with 2% lidocaine 10 ml. Also bolused with 100 mcg fentanyl. Pt's partner questioned the fentanyl, and I explained the difference between the effects of IV vs epidural fentanyl. I would anticipate fentanyl not to affect pt's respiratory drive or make her groggy since it is being given epidurally and would expect the effect on the fetus to be minimal by time of delivery. Pt, , and Dr. Graham all appear in agreement with giving the fentanyl. KR 13:50 Per RN, pt's pain went from a 9 down to a 4 after epidural bolus. She is now trying to rest. KR 1506: delivery time per discussion w/ L&D unit. LR Post-procedure Anesthesia date START: 10/04/23 Anesthesia time START: 16:48 Anesthesia date END: 10/05/23 Anesthesia time END: 15:06 Post-procedure Anesthesia Assessment: Yes CV function: HR/BP stable, Yes Resp function: RR/sat/airway adequate, Yes Post-op hydration adequate, Yes Pain control adequate, Yes Nausea & vomiting absent, Yes Temperature > 36 C, Yes Mental status appropriate and No Anesthesia complications <Tin Bishop, DO - Last Filed: 10/06/23 07:22> Infusion Subsequent interventions: 2345: 5mL 0.25% bupiv for diminished analgesia, increased sensation lower abdomen, perineum. Catheter tip 11cm at skin. Rate from 8 to 11mL/h. 2400: no change. Catheter pulled from 11 to 9cm at skin. 5mL 2% lido. Good response. <Aimee Li, DO - Last Filed: 10/05/23 13:55> Infusion Subsequent interventions: 2345: 5mL 0.25% bupiv for diminished analgesia, increased sensation lower abdomen, perineum. Catheter tip 11cm at skin. Rate from 8 to 11mL/h. 2400: no change. Catheter pulled from 11 to 9cm at skin. 5mL 2% lido. Good response. 10/05/23 1054: Pt reports 6-7/10 pain with contractions. She describes crampy pain in her LLQ that is present constantly and radiates toward her central lower abdomen and is worse with contractions. Loss of temperature checked, and pt had loss throughout LEFT side and on lower right side. Discussed with pt that since the epidural appears to be working well, especially on the left side, this is not just contraction pain; it may be due to baby's position and the epidural may not completely cover that pain. Epidural bolused with lidocaine 2% 10 ml. Pt reports pain down to 4/10 about 15 minutes after bolus but says she is more comfortable. About half an hour after bolus, pt reported 0/10 pain, including crampy LLQ pain. KR 1315: Called for epidural bolus @ 12:43; was finishing a case and could not get to L&D sooner. Pt is 9 cm and contractions are every [address] Graham at bedside. Pt experienced good relief after last bolus, although short-lived. She now appears very uncomfortable and tense but breathing through contractions well. Bolused about 13:10 with 2% lidocaine 10 ml. Also bolused with 100 mcg fentanyl. Pt's partner questioned the fentanyl, and I explained the difference between the effects of IV vs epidural fentanyl. I would anticipate fentanyl not to affect pt's respiratory drive or make her groggy since it is being given epidurally and would expect the effect on the fetus to be minimal by time of delivery. Pt, , and Dr. Graham all appear in agreement with giving the fentanyl. KR 13:50 Per RN, pt's pain went from a 9 down to a 4 after epidural bolus. She is now trying to rest. KR
[2023-10-04] MEDS: OXYTOCIN PREMIX 30 UNIT/500 ML PLAST..BAG 200 UNIT IV (20:50)
[2023-10-05] MEDS: LACTATED RINGERS 1,000 ML 100 ML IV ×2 (04:20→13:06)
[2023-10-05] MEDS: FENT 2MCG/ML BUPIV 0.125% EPI 200 MCG/100 ML PLAST..BAG 6 MCG EPIDURAL ×2 (07:28→14:23)
--- NOTE | 2023-10-05 08:06 | PM.OBPNLAB ---
Date/Time Date Patient Seen: 10/05/23 Time Patient Seen: 08:06 Pain Control Pain control: epidural Comments: Comfortable. Not feeling pressure or contractions. Good FM. Pelvic Exam Dilation (cm): 5 Effacement (%): 60 station: -2 Amniotic membrane status: Ruptured Comments: AROM performed, clear fluid Contractions Contractions on admission: regular (q3-5) Pitocin rate (mU/min): 10 Contraction intensity: Strong/Firm Status status: Category l Assessment and Plan Assessment: active labor Plan: continuous present management Comments: Continue pit, titrate as able AROM performed EPidural in place and working well FHT cat 1 Repeat exam in 4 hr, sooner PRN
[2023-10-05] MEDS: ESCITALOPRAM 10 MG TABLET PO (09:40)
[2023-10-05] MEDS: ONDANSETRON 4 MG/2 ML INJ IV (12:08)
--- NOTE | 2023-10-05 13:02 | PM.OBPNLAB ---
Date/Time Date Patient Seen: 10/05/23 Pain Control Comments: Painful again. Feeling increased pressure and cramping. Pelvic Exam Dilation (cm): 9 Effacement (%): 90 station: -1 Amniotic membrane status: Ruptured Contractions Contractions on admission: regular (2-4) Contraction pattern: Regular Contraction intensity: Strong/Firm Status status: Category l Heart Rate Baseline: 120 Monitor Accelerations: Present Monitor Decelerations: Absent Monitor Variability: Moderate Assessment and Plan Assessment: active labor Plan: continuous present management Comments: Anesthesia called for pain control Recheck within 1 hr, sooner PRN Anticipate start of pushing soon
--- NOTE | 2023-10-05 14:17 | PM.OBPNLAB ---
Date/Time Date Patient Seen: 10/05/23 Pain Control Pain control: tolerating well and epidural Pelvic Exam Dilation (cm): 10 Effacement (%): 100 station: 0 Amniotic membrane status: Ruptured Contractions Contractions on admission: regular (2-4) Contraction pattern: Regular Contraction intensity: Strong/Firm Status status: Category l Assessment and Plan Assessment: active labor Plan: continuous present management Comments: FHT category 1, tolerating labor well Will allow 30 minutes for mom to recover Start pushing sooner if she develops the urge or status dictates
--- NOTE | 2023-10-05 16:37 | PM.OBPRVD ---
Labor & Delivery Delivery date: 10/05/23 Cervical ripening method: per Garcia bulb protocol Delivery augmentation: rupture of membranes and pitocin Delivery monitor: external FHT Route of delivery: L&D Laceration Description: Vaginal - 1st Degree Estimated blood loss (mL): 300 Anesthesia Type: Epidural Narrative: PREPROCEDURE DIAGNOSIS: Intrauterine at 39w2d GBS negative RH positive PROCEDURE: London is a [id number] at 39w2d who presented IOL for macrosomia and was admitted to Labor and Delivery. Ripened with cervidil x 1 (12 hours), then garcia balloon with misoprostol x2. The patient progressed through the 1st stage slowly until reaching active phase. AROM was performed with clear fluid at 07:50. She then dilated to 6/80/-1 at roughly 11:20 and made steady progress. Augmented with pitocin and steadily progressed to complete at 14:11. She labored down to recover and began pushing at 14:38. Pain was controlled with epidural. FHT over this time was category 1 - notable for 1 shallow late deceleration requiring IVF and pitocin decrease. The patient progressed through the 2nd stage over 28 minutes and delivered a viable boy infant with APGARs 4/6/8 at 15:06 via . FHT during this time were largely category 1 - at 14:58 bradycardia to 80s noted x 2 minutes then with return to baseline of 120s with good variability. HR decelerated again to 80s for 1 minute prior to returning to baseline with moderate variability. Delivery was complicated by nuchal x1 which was reduced. No shoulder dystocia. Also notable for terminal meconium. initially placed on maternal chest. HR appropriate and symmetric breath sounds. Due to lack of respiratory effort he was taken to the warmer after cord was double clamped and cut. PPV was started at 15:08 - continued for 1 minute. Then transitioned to CPAP x 1 minute. Infant swatting mask away - then proceeded with intermittent blow by over 5 minutes. He was also deep suctioned 3 times in addition to routine suctioning and stimulation. CBG during this time 79. HR appropriate. then placed on maternal chest - O2 saturations monitored continuously x 30 minutes without issue. The placenta delivered with gentle cord traction, and appeared complete with 3 vessel cord. The perineum and vagina were inspected with 1st degree labial laceration which was hemostatic and not repaired. Needle and sponge counts were correct.? The vagina was inspected and no items were left in situ. London was doing well with Scott, her and and mother at bedside. POSTPROCEDURE DIAGNOSIS: Intrauterine at 39w2d, delivered via Same as preprocedure Plan for aftercare: Routine care
[2023-10-05] MEDS: LANOLIN OINT 7 GM 1 APPLIC TOP (18:24)
[2023-10-05] MEDS: WITCH HAZEL/GLYCERIN PADS 1 EACH TOP (18:24)
[2023-10-05] MEDS: DERMOPLAST SPRAY 20% 60 ML 1 SPRAY TOP (18:24)
[2023-10-05] MEDS: ACETAMINOPHEN 325 MG TABLET 650 MG PO (18:25)
[2023-10-05] MEDS: IBUPROFEN 600 MG TABLET PO (18:25)
[2023-10-05] MEDS: DOCUSATE 100 MG CAPSULE PO (19:40)
[2023-10-06] MEDS: IBUPROFEN 600 MG TABLET PO ×2 (00:24→06:23)
[2023-10-06] MEDS: ACETAMINOPHEN 325 MG TABLET 650 MG PO ×2 (00:25→06:23)
[2023-10-06] MEDS: DOCUSATE 100 MG CAPSULE PO (09:43)
[2023-10-06] MEDS: PRENATAL VIT,CALC/IRON/FOLIC 1 TABLET 1 TAB PO (09:44)
[2023-10-06] MEDS: ESCITALOPRAM 10 MG TABLET PO (09:45)
--- NOTE | 2023-10-06 14:01 | P.DS_ITS ---
History of Present Illness History of Present Illness Chief complaint: INDUCTION Discharge Providers Provider Date of admission: 10/03/23 16:50 Primary care physician: ERNST Somers Consults: 10/03/23 17:03 Consult to Anesthesiology Urgent Comment: Consulting Provider: Pilar Graham Reason for consultation: Epidural 10/06/23 17:26 Consult to Geographical Historian Routine Comment: Discharge provider: Pilar Graham MD Exam - Pediatric Vital Signs Vital Signs: Vital Signs BP 115/68 10/03/23 19:54 Objective Labs 10/03/23 18:15 Discharge Plan Discharge Plan Patient Disposition: Home Discharge orders & Medications Prescriptions: New ibuprofen 600 mg Tablet 600 mg PO Q6HR PRN (Reason: Pain, Mild (1-3)) Qty: 30 0RF Continued mecobalamin (vitamin B12) 1,000 mcg tablet,disintegrating 1,000 mcg sublingual DAILY Rx Instructions: place tablet under tongue and allow to dissolve for at least30 secs before swallowing vit-ferrous sulfat-FA 27 mg iron- 0.8 mg tablet PO escitalopram oxalate 10 mg tablet 10 mg PO DAILY Discontinued hydroxyzine pamoate [Vistaril] 25 mg capsule 25 mg PO TID PRN (Reason: restless leg(s)) Qty: 90 2RF Follow up/Referrals: Pilar Graham MD [Physician] - (6week Appt w/ Dr. Graham: ) Lennie Guerrero MS [Registered Nurse] - ( appt with Santana on 10/11/2023 @ 11am,in [address] [place] [address]) Visit Report/Discharge Packet Stand Alone Forms: Discharge: Care, Patient Portal/API, Stroke Signs & Symptoms Discharge Data Primary Care Provider: Neeru Santoro
[2023-10-06 14:12] VITALS: BP 109/67; PULSE 87; RESP 17; TEMP 35.9
--- NOTE | 2023-10-06 14:47 | P.DS_ITS ---
Discharge Providers Provider Date of admission: 10/03/23 16:50 Discharge Date: 10/06/23 Primary care physician: ERNST Somers Consults: 10/03/23 17:03 Consult to Anesthesiology Urgent Comment: Consulting Provider: Pilar Graham Reason for consultation: Epidural 10/06/23 17:26 Consult to Case Management Associate Routine Comment: Discharge provider: Pilar Graham MD Summary Hospital Course Hospital Course: 27 yo F [id number] presented for IOL for macrosomia on 10/02. Ripened with cervidil, FB, miso then augmented with pitocin and AROM. on 10/04. See delivery notes for details. PP course uncomplicated. Meeting all milestones. Lochia WNL, ambulating, voiding and eating normally. Mood good. BF well. F/u in 6 weeks for PP visit. Time Spent with Patient Time attestation: Total time spent providing and/or coordinating discharge services: Objective Labs 10/03/23 18:15 Exam Vital Signs (past 8 hours): - 10/06/23 14:12 Temperature 96.7 F L Pulse Rate 87 Respiratory Rate 17 Blood Pressure 109/67 GEN: NAD, well appearing, pleasant CV: RRR Pulm:normal WOB, CTAB Abd: fundus firm and below U Skin: no visible rashes, WWP Psych: normal affect Neuro: normal gait, symmetric movement Discharge Plan Discharge Plan Patient Disposition: Home Discharge orders & Medications Prescriptions: New ibuprofen 600 mg Tablet 600 mg PO Q6HR PRN (Reason: Pain, Mild (1-3)) Qty: 30 0RF Continued mecobalamin (vitamin B12) 1,000 mcg tablet,disintegrating 1,000 mcg sublingual DAILY Rx Instructions: place tablet under tongue and allow to dissolve for at least30 secs before swallowing vit-ferrous sulfat-FA 27 mg iron- 0.8 mg tablet PO escitalopram oxalate 10 mg tablet 10 mg PO DAILY Discontinued hydroxyzine pamoate [Vistaril] 25 mg capsule 25 mg PO TID PRN (Reason: restless leg(s)) Qty: 90 2RF Follow up/Referrals: Pilar Graham MD [Physician] - (6 week Appt w/ Dr. Graham: ) Cesar,Lennie T, MS [Registered Nurse] - ( appt with Santana on 10/11/2023 @ 11am,in [address] [place] [address]) Visit Report/Discharge Packet Stand Alone Forms: Discharge: Care, Patient Portal/API, Stroke Signs & Symptoms Discharge Data Primary Care Provider: Neeru Santoro
== END 2023-10-06 16:30 | disposition home or self-care (01) | DRG 807 ==
PROVIDERS: Admitting Provider Family Medicine; PCP Registered Nurse; Referring Provider Family Medicine; Visit Provider Family Medicine
DX: O36.63X0 Maternal care for excessive fetal growth, third trimester, not applicable or unspecified (principal); Z37.0 Single live birth; O76 Abnormality in fetal heart rate and rhythm complicating labor and delivery; Z3A.39 39 weeks gestation of pregnancy
CPT/HCPCS: 59050; 59400; 76815; 85025; 86850; 86900; 86901; A9270; G0379; J2405; J2590; J3010

== ENCOUNTER → 2024-04-30 12:06 | Outpatient (CLI) | payer OTHER, SELFPAY ==
[2024-04-30 13:01] LABS: Add Manual Diff / Slide Review NO; Basophils Absolute Auto 0 /uL (0-100); Basophils Percent Auto 0.3 % (0-2); Eosinophils Absolute Auto 100 /uL (0-450); Eosinophils Percent Auto 1.4 % (2-4); Hematocrit 40.4 % (36-46); Hemoglobin 13.9 g/dL (12.0-16.0); Lymphocytes Absolute Auto 2500 /uL (1100-4500); Lymphocytes Percent Auto 30.5 % (25-40); Mean Corpuscular HGB Conc 34.4 % (30-36); Mean Corpuscular Hemoglobin 30.8 PG (26-34); Mean Corpuscular Volume 89.6 fL (80-100); Monocytes Absolute Auto 400 /uL (0-900); Monocytes Percent Auto 4.9 % (3-14); Neutrophils Absolute Auto 5100 /uL (1500-7000); Neutrophils Percent Auto 62.9 % (50-75); Platelet Count 410 X10^3/uL (150-400); Red Blood Cell Count 4.51 X10^6/uL (4.0-5.2); Red Cell Distribution Width 13.6 % (11.6-14.8); White Blood Cell Count 8.2 X10^3/uL (4.5-11.0)
[2024-04-30 13:25] LABS: HEMOLYSIS 66 (0-50); Iron 90 ug/dL (37-170)
[2024-04-30 13:27] LABS: Alanine Aminotransferase 41 IU/L (<35); Albumin 4.5 g/dL (3.5-5.0); Albumin Globulin Ratio 1.9 (1.0-2.8); Alkaline Phosphatase 88 U/L (38-126); Aspartate Aminotransferase 34 IU/L (14-36); BUN Creatinine Ratio 16.9 (6-22); Bilirubin Total 0.4 mg/dL (0.2-1.3); Blood Urea Nitrogen 11 mg/dL (7-17); Calcium 9.2 mg/dL (8.4-10.2); Carbon Dioxide 20 mmol/L (22-32); Chloride 107 mmol/L (98-107); Estimated Glomerular Filt Rate > 60 mL/min (>60); Globulin 2.4 g/dL (1.7-4.1); Glucose 95 mg/dL (70-100); HEMOLYSIS < 15 (0-50); Potassium 4.4 mmol/L (3.4-5.1); Sodium 139 mmol/L (137-145); Total Protein 6.9 g/dL (6.3-8.2)
[2024-04-30 13:36] LABS: Percent Iron Saturation 29 % (15-50); Total Iron Binding Capacity 309 ug/dL (265-497); Transferrin 294 mg/dL (206-381)
[2024-04-30 13:55] LABS: TSH w/ Reflex to FT4 1.28 uIU/mL (0.47-4.68)
[2024-04-30 13:58] LABS: Ferritin 16 ng/mL (6-137)
[2024-04-30 14:31] LABS: Folate > 20.0 ng/mL (2.76-20.0); Vitamin B12 793 pg/mL (239-931)
== END ==
PROVIDERS: PCP Family Medicine; Referring Provider Family Medicine; Visit Provider Family Medicine
DX: F41.9 Anxiety disorder, unspecified (principal); G25.81 Restless legs syndrome; Z78.9 Other specified health status; Z86.39 Personal history of other endocrine, nutritional and metabolic disease
CPT/HCPCS: 36415; 80053; 82306; 82607; 82728; 82746; 83540; 83550; 84443; 85025

== ENCOUNTER → 2024-05-08 10:53 | Outpatient (CLI) | payer OTHER, SELFPAY | PROVIDERS: PCP Family Medicine; Visit Provider Family Medicine | DX: R82.90 Unspecified abnormal findings in urine (principal) | CPT/HCPCS: 87077; 87086 ==

== ENCOUNTER → 2024-05-24 06:50 | Outpatient (CLI) | payer OTHER, SELFPAY ==
--- NOTE | 2024-05-24 06:51 | DI.US.S_ITS ---
PROCEDURE: US RENAL COMPLETE INDICATIONS: Abnormal urine odor, history of rhabdomyolysis TECHNIQUE: Real-time scanning was performed of the kidneys and bladder, with image documentation. COMPARISON: None. FINDINGS: Kidneys: Kidneys are normal in size. Right kidney measures 11 cm long; left kidney measures 10.3 cm long. Right renal cortical thickness is 1.6 cm; left renal cortical thickness is 1.5 cm. Renal cortical echotexture is normal. No hydronephrosis or nephrolithiasis. No suspicious solid mass lesions. Bladder: Pre-void bladder volume is 54 mL. Post-void residual is 0 mL. Pre-void images demonstrate no intraluminal masses or stones. On pre-void images, knee there ureteral jets are noted with color Doppler interrogation. (Of note, ureteral jets may not be detectable in up to 25% of cases due to insufficient differences in specific gravity between ureteral and bladder urine). Miscellaneous: No free pelvic fluid. IMPRESSION: Unremarkable exam. Dictated by: Flor Lamar M.D. on 05/24/2024 at 16:11 Approved by: Flor Lamar M.D. on 05/24/2024 at 16:11
== END ==
PROVIDERS: PCP Family Medicine; Referring Provider Family Medicine; Visit Provider Family Medicine
DX: R82.90 Unspecified abnormal findings in urine (principal); Z87.39 Personal history of other diseases of the musculoskeletal system and connective tissue
CPT/HCPCS: 76770

== ENCOUNTER → 2024-06-09 09:44 | Outpatient (CLI) | payer OTHER, SELFPAY ==
[2024-06-09 11:27] LABS: Creatine Kinase 71 U/L (30-135)
[2024-06-09 11:28] LABS: Alanine Aminotransferase 24 IU/L (<35); Albumin 4.4 g/dL (3.5-5.0); Alkaline Phosphatase 77 U/L (38-126); Aspartate Aminotransferase 25 IU/L (14-36); BUN Creatinine Ratio 12.9 (6-22); Bilirubin Total 0.5 mg/dL (0.2-1.3); Blood Urea Nitrogen 9 mg/dL (7-17); Calcium 9.6 mg/dL (8.4-10.2); Carbon Dioxide 21 mmol/L (22-32); Chloride 108 mmol/L (98-107); Estimated Glomerular Filt Rate > 60 mL/min (>60); Globulin 2.2 g/dL (1.7-4.1); Glucose 72 mg/dL (70-100); HEMOLYSIS < 15 (0-50); Potassium 4.5 mmol/L (3.4-5.1); Sodium 139 mmol/L (137-145); Total Protein 6.6 g/dL (6.3-8.2)
[2024-06-09 16:22] LABS: Rubella Antibody IgG 19.2 IU/mL (>15)
[2024-06-10 09:12] LABS: Mumps Virus IgG Antibody 37.8 AU/mL (Immune >10.9)
[2024-06-10 13:36] LABS: Rubeola Measles IgG 28.6 AU/mL (Immune >16.4)
== END ==
LOC: LAB 09:45
PROVIDERS: PCP Family Medicine; Referring Provider Family Medicine; Visit Provider Family Medicine
DX: Z01.84 Encounter for antibody response examination (principal); Z87.39 Personal history of other diseases of the musculoskeletal system and connective tissue
CPT/HCPCS: 36415; 80053; 82550; 86735; 86762; 86765

== ENCOUNTER → 2024-07-04 13:19 | Outpatient (CLI) | payer OTHER, SELFPAY ==
[2024-07-04 13:51] LABS: HEMOLYSIS < 15 (0-50); Iron 122 ug/dL (37-170)
[2024-07-04 14:02] LABS: Percent Iron Saturation 37 % (15-50); Total Iron Binding Capacity 330 ug/dL (265-497); Transferrin 274 mg/dL (206-381)
[2024-07-04 14:27] LABS: Ferritin 56 ng/mL (6-137)
== END ==
PROVIDERS: PCP Family Medicine; Referring Provider Family Medicine; Visit Provider Family Medicine
DX: E61.1 Iron deficiency (principal)
CPT/HCPCS: 36415; 82728; 83540; 83550

== ENCOUNTER → 2024-07-16 11:55 | Outpatient (CLI) | payer OTHER, SELFPAY ==
--- NOTE | 2024-07-16 11:57 | DI.RAD.S_ITS ---
PROCEDURE: XR FOOT LT MIN 3V INDICATIONS: PAIN TECHNIQUE: 3 views of the foot were acquired. COMPARISON: [facility], CR, XR ANKLE LT MIN 3V, 07/16/2024, 11:55. FINDINGS: Bones: No fractures or dislocations. No suspicious bony lesions. Soft tissues: No tibiotalar joint effusion. Achilles tendon appears normal. IMPRESSION: No visualized acute fracture or dislocation. However, if clinical concern and/or pain persist, short interval imaging followup in 7-10 days is recommended, as occult injury cannot be definitively excluded. Dictated by: Flor Lamar M.D. on 07/16/2024 at 17:31 Approved by: Flor Lamar M.D. on 07/16/2024 at 17:37
--- NOTE | 2024-07-16 11:58 | DI.RAD.S_ITS ---
PROCEDURE: XR ANKLE LT MIN 3V INDICATIONS: PAIN TECHNIQUE: 3 views of the ankle were acquired. COMPARISON: [facility], , XR FOOT LT MIN 3V, 07/16/2024, 11:55. FINDINGS: Bones: No fractures or dislocations. Ankle mortise is normally aligned. No suspicious bony lesions. Soft tissues: No tibiotalar joint effusion. Achilles tendon appears normal. IMPRESSION: No visualized acute fracture or dislocation. However, if clinical concern and/or pain persist, short interval imaging followup in 7-10 days is recommended, as occult injury cannot be definitively excluded. Dictated by: Flor Lamar M.D. on 07/16/2024 at 17:31 Approved by: Flor Lamar M.D. on 07/16/2024 at 17:31
== END ==
PROVIDERS: PCP Family Medicine; Referring Provider Family Medicine; Visit Provider Family Medicine
DX: M79.672 Pain in left foot (principal); M25.572 Pain in left ankle and joints of left foot
CPT/HCPCS: 73610; 73630

== ENCOUNTER → 2024-07-22 12:22 | Outpatient (CLI) | payer OTHER, SELFPAY ==
--- NOTE | 2024-07-22 12:24 | DI.RAD.S_ITS ---
PROCEDURE: XR FOOT LT MIN 3V INDICATIONS: Left foot pain - repeat secondary to prolonged pain TECHNIQUE: 3 views of the foot were acquired. COMPARISON: [facility], CR, XR FOOT LT MIN 3V, 07/16/2024, 11:55. FINDINGS: Bones: No acute fractures or dislocations. No suspicious bony lesions. Soft tissues: No suspicious soft tissue calcifications. IMPRESSION: No acute osseous abnormality. If there is continued clinical concern or persistent symptoms, repeat radiographs or cross-sectional imaging (e.g. CT, MRI) may be helpful for further evaluation. Approved by: Corbin Torres M.D. on 07/22/2024 at 13:00
== END ==
PROVIDERS: PCP Family Medicine; Referring Provider Family Medicine; Visit Provider Family Medicine
DX: M79.672 Pain in left foot (principal)
CPT/HCPCS: 73630

== ENCOUNTER → 2024-08-04 11:24 | Outpatient (CLI) | payer OTHER, SELFPAY ==
[2024-08-04 13:01] LABS: Free T3, Triiodothyronine Free 3.27 pg/mL (2.77-5.27); T4 Total Thyroxine 8.96 ug/dL (5.5-11.0)
[2024-08-04 13:02] LABS: Prolactin 6.4 ng/mL (3.0-18.6)
[2024-08-04 13:14] LABS: Thyroid Stimulating Hormone 2.13 uIU/mL (0.47-4.68)
== END ==
PROVIDERS: PCP Family Medicine; Referring Provider Family Medicine; Visit Provider Family Medicine
DX: R68.82 Decreased libido (principal); R53.83 Other fatigue; F41.9 Anxiety disorder, unspecified; F32.A Depression, unspecified
CPT/HCPCS: 36415; 84146; 84436; 84443; 84481

== ENCOUNTER 2024-09-13 00:52 | Inpatient (IN) | payer OTHER, SELFPAY ==
[2024-09-13] VITALS (20 sets, daily range): BP systolic 114–152; BP diastolic 70–99; PULSE 80–130; RESP 7–34; TEMP 36.1–37.2; O2SAT 85–100; BMI 26.2
--- NOTE | 2024-09-13 | PATH_ITS ---
[facility] Accession Number: [id number] No. of containers..01 Tissue . 01 Material submitted: . gallbladder - GALLBLADDER . 01 Diagnosis: GALLBLADDER, CHOLECYSTECTOMY: Chronic cholecystitis and cholelithiasis. MRV 09/17/2024 1612 Local . 01 Electronically signed: . Jana Hernandez MD, Pathologist NPI- [id number] . 01 Gross description: . Received in formalin with two identifiers and gallbladder, is an intact gallbladder, 10.0 x 3.4 x 2.8 cm, with an unremarkable external surface. The cystic duct margin is inked blue, and no pericystic lymph node is identified. The lumen contains multiple yellow bosselated calculi up to 0.7 cm in greatest dimension admixed with green mucoid bile. The calculi are grossly obstructing the cystic duct. The mucosa is bains and velvety with yellow areas of discoloration and no polyps or lesions identified. The trammell are edematous and thickened up to 0.5 cm. Block Breaker Operator sections to include the cystic duct margin and full-thickness sections are submitted in A1. ([id number]) /MRV 09/14/2024 1621 Local . 01 Pathologist provided ICD-10: K80.10 . 01 CPT . 128361 Specimen Comment: A courtesy copy of this report has been sent to [facility]ology Performed at: [address] [address], [place], [place] [id number] MD Alex Dumont MD Phone: [phone]
--- NOTE | 2024-09-13 00:57 | EKG_ITS ---
[address] [address] Test Date: 2024-09-13 Pat Name: London [place] Department: Room: Gender: Female Bag Adjuster: LAWRENCE : 1995 Requested By: Order Number: [id number] Reading MD: Crispin Hampton Measurements Intervals Mullens Rate: 130 P: 67 MN: 138 QRS: 57 QRSD: 68 T: 68 QT: 288 QTc: 423 Interpretive Statements Sinus tachycardia Cannot rule out Anterior infarct , age undetermined Electronically Signed On 09-13-2024 18:05:28 PDT by Crispin Hampton
[2024-09-13] MEDS: ONDANSETRON 4 MG/2 ML INJ IV ×3 (01:16→13:05)
[2024-09-13 01:32] LABS: Add Manual Diff / Slide Review NO; Hematocrit 40.9 % (36-46); Hemoglobin 14.0 g/dL (12.0-16.0); Lymphocytes Absolute Auto 4700 /uL (1100-4500); Mean Corpuscular HGB Conc 34.3 % (30-36); Mean Corpuscular Hemoglobin 30.9 PG (26-34); Mean Corpuscular Volume 90.1 fL (80-100); Platelet Count 383 X10^3/uL (150-400)
[2024-09-13 01:34] LABS: INR 0.9 (0.9-1.3); Prothrombin Time 10.6 SECONDS (9.4-12.5)
[2024-09-13 01:37] LABS: PTT Partial Thromboplastin Tim 32 SECONDS (25.1-36.5)
--- NOTE | 2024-09-13 01:37 | PC.NURSE ---
Pt had denied n/v/d in triage. When starting ekg pt became suddenly nauseous and had 1 episode of emesis
[2024-09-13 01:41] LABS: Alanine Aminotransferase 20 IU/L (<35); Albumin 4.4 g/dL (3.5-5.0); Albumin Globulin Ratio 1.6 (1.0-2.8); Alkaline Phosphatase 84 U/L (38-126); Blood Urea Nitrogen 9 mg/dL (7-17); Calcium 9.4 mg/dL (8.4-10.2); Carbon Dioxide 21 mmol/L (22-32); Chloride 108 mmol/L (98-107); Creatine Kinase 58 U/L (30-135); Estimated Glomerular Filt Rate > 60 mL/min (>60); Globulin 2.8 g/dL (1.7-4.1); Glucose 96 mg/dL (70-99); HEMOLYSIS < 15 (0-50); Lipase 110 U/L (23-300); Magnesium 1.8 mg/dL (1.6-2.3); Potassium 4.0 mmol/L (3.4-5.1); Sodium 139 mmol/L (137-145); Total Protein 7.2 g/dL (6.3-8.2)
--- NOTE | 2024-09-13 01:41 | DI.CT.S_ITS ---
PROCEDURE: CT ANGIO CHEST INDICATIONS: RO dissection, chest/back pain, epigastric pain, rapid breathing TECHNIQUE: After the administration of intravenous contrast, 2.5 mm thick sections acquired from the lung apices to the posterior lung bases. Maximum intensity projection (MIP) oblique sagittal reformats were then acquired parallel to the aortic arch. For radiation dose reduction, the following was used: automated exposure control. COMPARISON: None. FINDINGS: Image quality: Diagnostic Lungs and pleura: No pneumothorax. No consolidation or pleural effusion. Mediastinum, heart, and esophagus: No central pulmonary embolism. No acute aortic dissection. Normal heart size. Unremarkable esophagus. No enlarged lymph nodes by size criteria. Chest wall and thyroid: Breast implants. Unremarkable CT appearance of the thyroid. Upper abdomen: Separately dictated Bones: No aggressive appearing osseous abnormality. IMPRESSION: No acute dissection. No central pulmonary embolism. No pulmonary consolidation or pleural effusion. Agree with preliminary report. Dictated by: Bertram Fitch M.D. on 09/13/2024 at 7:15 Approved by: Bertram Fitch M.D. on 09/13/2024 at 7:19
--- NOTE | 2024-09-13 01:41 | DI.CT.S_ITS ---
PROCEDURE: CT ABDOMEN PELVIS W CON INDICATIONS: Chest/back pain, Epigastric pain, rapid breathing TECHNIQUE: After the administration of intravenous contrast, axial sections acquired from the lung bases to the pubic symphysis. Coronal and sagittal reformats were performed. For radiation dose reduction, the following was used: automated exposure control, adjustment of mA and/or kV according to patient size. COMPARISON: None. FINDINGS: Image quality: Diagnostic Lower chest: Unremarkable Liver: Unremarkable Gallbladder and biliary system: Possible small gas containing gallstones. Ultrasound findings separately dictated. No biliary ductal dilation. Pancreas: No ductal dilation Spleen: Nonenlarged Adrenals: No discrete nodules Kidneys: No solid renal mass. No hydronephrosis. Vessels and lymph nodes: The main portal vein is patent. No abdominal aortic aneurysm. No enlarged lymph nodes by size criteria. Bowel and peritoneum: No small bowel obstruction. Mildly distended distal fluid-filled loops of small bowel. Possible mild wall thickening also seen in the distal colon. Nondilated appendix No rim enhancing abscess. No drainable ascites Body wall: Unremarkable Pelvis: Unremarkable urinary bladder and reproductive organs on CT evaluation. Bones: No aggressive appearing osseous abnormality. IMPRESSION: Mild enterocolitis suspected. No bowel obstruction. Other findings above. No significant discrepancy from the preliminary report. Dictated by: Bertram Fitch M.D. on 09/13/2024 at 7:19 Approved by: Bertram Fitch M.D. on 09/13/2024 at 7:24
[2024-09-13 01:52] LABS: NT-proBNP (BNP-Adult 18+) < 20 pg/mL (<125); Troponin I < 0.012 ng/mL (0.01-0.034)
[2024-09-13] MEDS: HYDROMORPHONE 1 MG INJ IV ×2 (01:55→22:04)
[2024-09-13 02:21] LABS: Pregnancy Test Serum,Qual Negative (Negative)
[2024-09-13 02:22] LABS: Lactate (Lactic Acid) 1.9 mmol/L (0.7-2.1)
[2024-09-13 02:47] LABS: Procalcitonin < 0.030 ng/mL (<0.5)
[2024-09-13] MEDS: HYDROMORPHONE 1 MG INJ 2 MG IV (03:03)
--- NOTE | 2024-09-13 03:12 | PC.NURSE ---
pt's O2 sats dropped to 83% after receiving pain medication. This tech entered the room to place the patient on oxygen. while this tech was in the room that pt's O2 sats dropped to 62%. Ofe PARRA entered the room at this time to assist. Patient was placed on 2L NC. Sats improved to 98%. FIDEL Cárdenas and FIDEL Thakur made aware.
--- NOTE | 2024-09-13 03:14 | PC.NURSE ---
pt c/o pain returning, pt writhing on stretcher, new orders received and pt medicated for pain and ice pack given for c/o feeling hot
[2024-09-13 03:21] LABS: Thyroid Stimulating Hormone 6.23 uIU/mL (0.47-4.68)
--- NOTE | 2024-09-13 03:41 | DI.US.S_ITS ---
PROCEDURE: US ABDOMEN LIMITED INDICATIONS: RUQ gallbladder TECHNIQUE: Real-time focused scanning was performed of the abdomen, with image documentation. COMPARISON: None. FINDINGS: Liver measures 14 cm. Cholelithiasis. No sonographic Ren sign. No pathologic wall thickening. CBD measures 4 mm. Unremarkable pancreas. IMPRESSION: Cholelithiasis without sonographic Ren's sign to suggest cholecystitis. Agree with preliminary report Dictated by: Bertram Fitch M.D. on 09/13/2024 at 7:24 Approved by: Bertram Fitch M.D. on 09/13/2024 at 7:25
[2024-09-13 03:43] LABS: Appearance Urine UA CLEAR; Bilirubin Urine UA NEGATIVE (NEGATIVE); Color Urine UA YELLOW; Glucose Urine UA NEGATIVE (Negative); Ketones Urine UA NEGATIVE (NEGATIVE); Leukocyte Esterase Urine UA NEGATIVE (NEGATIVE); Nitrite Urine UA NEGATIVE (Negative); Occult Blood Urine UA NEGATIVE (Negative); Protein Urine UA NEGATIVE (Negative); Specific Gravity Urine UA 1.010 (1.000-1.035); Urobilinogen Urine UA 0.2 E.U./dL (0.2)
[2024-09-13 03:46] LABS: pH Urine UA 8.0 (4.5-8.0)
[2024-09-13 03:48] LABS: Culture Indicated Urine Cult Not Indicated; UR Morphine/Opiate cutoff 300 Negative (Negative); Urine MDMA Negative (Negative); Urine Methamphetamines Negative (Negative); Urine Tetrahydrocannabinol Negative (Negative); Urine Tricyclic Antidepressant Negative (Negative)
--- NOTE | 2024-09-13 03:53 | PM.HP.1 ---
History of Present Illness History of Present Illness Date Patient Seen: 09/13/24 Time Patient Seen: 03:53 Chief complaint: chest pain, back pain Narrative: 28-year-old female with past medical history of RLS and anxiety presents with complaint of upper abdominal lower chest pain. Per the patient report, the patient had an acute onset of abdominal and chest pain. The patient states that her abdominal is in the epigastric. Area and her lower chest has increasing pain that is sharp in nature and nonradiating. The patient has some nausea but denies any vomiting. The patient also denies any recent fever, chills, dysuria, coughing. Denies any prior history of abdominal pain. Denies being . In the emergency room, the patient was hemodynamically stable. Labs were relatively nicer for WBC of 12 and D-dimer in the 600. CT angio chest and CT abdomen with contrast shows no PE, aortic dissection or any abnormality to suggest the cause of the pain. However the CT did shows an elongated gallbladder but no clear visible stone seen. ER physician did consult the general surgeon who recommended we admit the patient to observation with pain control IV fluid. The general surgeon will evaluate the patient this morning. Right upper quadrant abdominal ultrasound was also ordered. Of note LFTs and bilirubin normal. Lipase also normal. test negative. The patient was given IV fluid pain control with IV Dilaudid. Tropes was negative and EKG shows no sign of acute ischemia. [facility] Medical History Heart palpitations Bartholin cyst (~2012) Eczema Anisocoria Skin rash Surgical History History of breast reconstruction (~2020) History of removal of skin mole [place] teeth extracted Family History Father Skin cancer Grandfather Skin cancer Prostate cancer Hypertension Rheumatoid arthritis Grandmother Ovarian cyst H/O: hysterectomy Stroke Osteoarthritis Mother Arthritis Social History marital status: unmarried,living together number of children: 0 household members: significant other lives independently: Yes caregiver/support person: No housing: house pets and animals: Yes (2 cats, 1 dog) education level: college occupational status: employed current occupational exposures/hazards: No special philip needs: No travel history: over 6 months ago seatbelt use: always helmet use: Yes water heater temp set < 120 deg: Yes working smoke detector in home: Yes fire extinguisher in home: Yes carbon monox detector in home: Yes firearms in home: Yes firearms unloaded and locked: Yes do you feel safe at home: Yes Smoking Status: Never smoker second hand exposure: No alcohol intake: former substance use type: does not use during the past year weight has: decreased > 10 lbs well-balanced diet: about half the time daily servings fruits/ve-4 caffeine: Yes (aware of 200mg limit) Type(s) of exercise: aerobic and bicycling Meds Home Medications and Allergies Home Medications ?Medication ?Instructions ?Recorded ?Confirmed ?Type mecobalamin (vitamin B12) 1,000 1,000 mcg sublingual DAILY 05/04/23 09/11/24 History mcg disintegrating tablet,sublingual docosahexaenoic acid 200 mg mg PO 02/28/24 09/11/24 History capsule ( DHA) loratadine 10 mg tablet (Allergy 10 mg PO DAILY 02/28/24 09/11/24 History Relief (loratadine)) ferrous sulfate 325 mg (65 mg 325 mg PO DAILY 05/08/24 09/11/24 History iron) tablet bupropion HCl 150 mg 24 hr tablet, 300 mg (2 x 150 mg) PO DAILY #180 08/21/24 09/11/24 Rx extended release tabs buspirone 5 mg tablet 5 mg PO BID #60 tabs 08/21/24 09/11/24 Rx gabapentin 300 mg capsule 300 mg PO BEDTIME #30 caps 08/21/24 09/11/24 Rx L norgest/E estradiol-E estrad 1 tab PO Q24H #182 ea 09/11/24 09/11/24 Rx 0.15 mg-30 mcg (84)/10 mcg(7) tabs,3mos (Ashlyna) fluoxetine 10 mg tablet 10 mg PO DAILY #30 tabs 09/11/24 09/11/24 Rx propranolol 10 mg tablet 10 mg PO BID PRN anxiety #30 tabs 09/11/24 09/11/24 Rx Allergies Allergy/AdvReac Type Severity Reaction Status Date / Time cephalexin (From Keflex) AdvReac Hives Verified 09/13/24 00:57 Review of Systems Review of Systems ROS: Yes All systems reviewed with the patient and are negative except as otherwise documented Exam Vital Signs (past 8 hours): - 09/13/24 00:58 09/13/24 02:22 09/13/24 02:30 Temperature 97.7 F Pulse Rate 107 H 93 H 92 H Respiratory Rate 18 31 H Blood Pressure 152/91 H Pulse Oximetry 98 100 100 Oxygen Delivery Method Room Air 09/13/24 02:32 09/13/24 02:32 09/13/24 03:02 Temperature Pulse Rate 93 H 101 H Respiratory Rate 26 H Blood Pressure 143/96 H Pulse Oximetry 100 94 Oxygen Delivery Method 09/13/24 03:09 09/13/24 03:09 Temperature Pulse Rate 84 Respiratory Rate 7 L Blood Pressure 149/90 H Pulse Oximetry 100 Oxygen Delivery Method Oxygen Delivery Method Room Air Narrative Exam Narrative: Physical Exam: GENERAL: The patient is not in any acute distressed. Awake and alert. HEENT: Nonicteric sclerae, PERRLA, EOMI. Oropharynx clear. Moist mucous membranes. Conjunctivae appear well perfused. HEART: Regular rate and rhythm without murmurs. No lower extremities edema. LUNGS: Clear to auscultation bilaterally. No wheezing, crackles or rhonchi ABDOMEN: Soft, positive bowel sounds, nontender. SKIN: No rash, no excessive bruising, petechiae, or purpura. NEUROLOGIC: AxO x 3. Cranial nerves II-XII intact without motor/sensory deficit. Objective Labs 09/13/24 01:10 09/13/24 01:10 Labs: Laboratory Results - last 24 hr 09/13/24 09/13/24 09/13/24 01:10 03:00 03:00 WBC 12.4 H RBC 4.54 Hgb 14.0 Hct 40.9 MCV 90.1 MCH 30.9 MCHC 34.3 RDW 12.5 Plt Count 383 Neut % (Auto) 54.6 Lymph % (Auto) 37.7 [place] % (Auto) 5.6 Eos % (Auto) 1.3 L Baso % (Auto) 0.8 Neut # (Auto) 6800 Lymph # (Auto) 4700 H [place] # (Auto) 700 Eos # (Auto) 200 Baso # (Auto) 100 PT 10.6 INR 0.9 APTT 32 D-Dimer 632 H Sodium 139 Potassium 4.0 Chloride 108 H Carbon Dioxide 21 L BUN 9 Creatinine 0.70 Estimated GFR > 60 BUN/Creatinine Ratio 12.9 Glucose 96 Lactate 1.9 Calcium 9.4 Magnesium 1.8 Total Bilirubin 0.4 AST 28 ALT 20 Alkaline Phosphatase 84 Total Creatine Kinase 58 Troponin I < 0.012 NT-Pro-B Natriuret Pep < 20 Total Protein 7.2 Albumin 4.4 Globulin 2.8 Albumin/Globulin Ratio 1.6 Lipase 110 Procalcitonin < 0.030 TSH 6.23 H Serum , Qual Negative Urine Color Yellow Urine Appearance Clear Urine pH 8.0 TNP Ur Specific [place] 1.010 Urine Protein Negative Urine Glucose (UA) Negative Urine Ketones Negative Urine Occult Blood Negative Urine Nitrate Negative Urine Bilirubin Negative Urine Urobilinogen 0.2 Ur Leukocyte Esterase Negative Urine RBC None seen Urine WBC None seen Ur Squamous Epith Cells None seen Urine Bacteria None seen Ur Culture Indicated? Cult not indicated Vol Urine Centrifuged 10ml (spun) U Opiates 300ng/mL cut Negative Ur Oxycodone Screen Negative Urine Methadone Screen Negative Ur Barbiturates Screen Negative U Tricyclic Antidepress Negative Ur Phencyclidine Scrn Negative Ur Amphetamines Screen Negative U Methamphetamines Scrn Negative Ur MDMA Scrn (Ecstasy) Negative U Benzodiazepines Scrn Negative Urine Cocaine Screen Negative U Marijuana (THC) Screen Negative Urine Specific [place] TNP Ur Creatinine TNP Assessment & Plan Assessment & Plan narrative: Intractable abdominal/chest pain. Unclear etiology. CT angio of the chest and CT abdomen contrast shows no clear underlying cause. Patient labs including lipase LFTs bilirubin troponin are all negative. However there is some finding on CT scan of the abdomen and that suggest an elongated gallbladder. General surgery consulted and recommend we admit the patient for pain control, IV fluid. We also ordered a right upper quadrant abdominal ultrasound. Appreciate further input and management per general surgery. Nausea/vomiting. IVF and IV antiemetics. Dehydration. IV fluid. RLS. Will need to resume home medication once abdominal pain controlled. Anxiety. prn ativan. DVT prophylaxis SCDs CODE STATUS full code. Disposition likely home in 1 to 2 days - As the provider of this telehealth evaluation, requested by the patient's evaluating physician, I attest that I introduced myself to the patient, provided my credentials and determined that telemedicine via a real-time, 2 way interactive audio and video platform is an appropriate and effective means of providing this service. - I reviewed the patient's chart and had a discussion with the member of the patient's treatment team. - The patient and I mutually agreed with continuation of this evaluation via telemedicine. The patient consented for the telemedicine evaluation. - This virtual encounter was taken place from [place] by Dr. Kirill Li. The patient was evaluated at [facility]. The encounter was approximately 35 minutes. The nurse was present during the entire time of the encounter and was able to move the stethoscope in appropriate directions. Time-Based Coding :: [TOTAL MINUTES] spent with patient and on the chart (including review of chart, obtaining history, exam, reviewing outside data, placing orders, documenting exam and treatment plan, and counseling patient) on [DATE].
--- NOTE | 2024-09-13 03:55 | EKG_ITS ---
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
[2024-09-13] MEDS: SODIUM CHLORIDE 0.9% 1,000 ML 1000 ML IV (04:09)
--- NOTE | 2024-09-13 04:28 | ED.CHESTPAIN ---
HPI - Chest Pain General Chief Complaint: Chest Pain Stated Complaint: chest pain, back pain Time Seen by Provider: 09/13/24 01:30 Source: patient Mode of arrival: Ambulatory Limitations: no limitations History of Present Illness HPI narrative: 28-year-old woman with a history of depression and anxiety comes to the ER because of worsening pain throughout the day today. She starting having pain in her upper back near between the shoulder blades which then traveled down to her flanks and subsequently her chest in the center of her chest and she is also having epigastric and right upper quadrant abdominal pain as well. She admits to diaphoresis, lightheadedness, nausea but denies vomiting or diarrhea. She denies any recent fever chills or sweats. She denies cardiac history. She states she has not had any unprotected sex in a very long time so she does not think that she could be . She is in extreme pain 12/07 but has no other concerns at this time. Related Data Home Medications ?Medication ?Instructions ?Recorded ?Confirmed mecobalamin (vitamin B12) 1,000 1,000 mcg sublingual DAILY 05/04/23 09/11/24 mcg disintegrating tablet,sublingual docosahexaenoic acid 200 mg mg PO 02/28/24 09/11/24 capsule ( DHA) loratadine 10 mg tablet (Allergy 10 mg PO DAILY 02/28/24 09/11/24 Relief (loratadine)) ferrous sulfate 325 mg (65 mg 325 mg PO DAILY 05/08/24 09/11/24 iron) tablet Previous Rx's ?Medication ?Instructions ?Recorded bupropion HCl 150 mg 24 hr tablet, 300 mg (2 x 150 mg) PO DAILY #180 08/21/24 extended release tabs buspirone 5 mg tablet 5 mg PO BID #60 tabs 08/21/24 gabapentin 300 mg capsule 300 mg PO BEDTIME #30 caps 08/21/24 L norgest/E estradiol-E estrad 1 tab PO Q24H #182 ea 09/11/24 0.15 mg-30 mcg (84)/10 mcg(7) tabs,3mos (Ashlyna) fluoxetine 10 mg tablet 10 mg PO DAILY #30 tabs 09/11/24 propranolol 10 mg tablet 10 mg PO BID PRN anxiety #30 tabs 09/11/24 Allergies Allergy/AdvReac Type Severity Reaction Status Date / Time cephalexin (From Keflex) AdvReac Hives Verified 09/13/24 00:57 Review of Systems Constitutional Constitutional: Denies chills, Denies fatigue, Denies fever(s) and Denies headache(s) Eyes Eyes: Denies blind spots, Denies blurry vision, Denies change in vision and Denies loss of vision ENT Ears, Nose, Mouth, and Throat: Denies abnormal hearing, Denies change in voice, Denies dysphagia, Denies dizziness, Reports dry mouth, Denies facial pain, Denies headache(s), Denies nasal discharge, Denies nasal obstruction and Denies neck pain Cardiovascular Cardiovascular: Reports chest pain, Denies syncope, Denies rapid heart rate, Denies edema, Denies leg edema, Denies lightheadedness, Denies radiating jaw, neck or arm pain, Denies palpitations and Denies dyspnea Respiratory Respiratory: Denies change in phlegm color, Denies cough, Denies hemoptysis, Denies excessive phlegm production, Denies dyspnea and Denies wheezing Gastrointestinal Gastrointestinal: Reports abdominal pain, Denies melena, Denies hematochezia, Denies coffee ground emesis, Denies dysphagia, Reports nausea and Denies vomiting Genitourinary Genitourinary: Denies abnormal vaginal bleeding, Denies hematuria, Denies urinary frequency, Denies difficulty voiding, Denies dysuria, Denies menorrhagia, Denies urinary incontinence, Denies urinary hesitancy, Denies urinary urgency and Denies vaginal discharge Musculoskeletal Musculoskeletal: Denies neck pain Neurologic Neurologic: Denies abnormal hearing, Denies abnormal movements, Denies abnormal speech, Denies confusion, Denies dizziness, Denies syncope, Denies headache(s), Denies lack of coordination, Denies localized weakness, Denies loss of vision, Denies convulsions, Denies sensory deficit and Denies paresthesias Psychiatric Psychiatric: Denies confusion Endocrine Endocrine: Denies fatigue and Denies palpitations Allergic/Immunologic Allergic/Immunologic: Denies wheezing Patient History Medical History Heart palpitations Bartholin cyst (~2012) Eczema Anisocoria Skin rash Surgical History History of breast reconstruction (~2020) History of removal of skin mole [place] teeth extracted Family History Father Skin cancer Grandfather Skin cancer Prostate cancer Hypertension Rheumatoid arthritis Grandmother Ovarian cyst H/O: hysterectomy Stroke Osteoarthritis Mother Arthritis Social History marital status: unmarried,living together number of children: 0 household members: significant other lives independently: Yes caregiver/support person: No housing: house pets and animals: Yes (2 cats, 1 dog) education level: college occupational status: employed current occupational exposures/hazards: No special philip needs: No travel history: over 6 months ago seatbelt use: always helmet use: Yes water heater temp set < 120 deg: Yes working smoke detector in home: Yes fire extinguisher in home: Yes carbon monox detector in home: Yes firearms in home: Yes firearms unloaded and locked: Yes do you feel safe at home: Yes second hand exposure: No alcohol intake: former substance use type: does not use during the past year weight has: decreased > 10 lbs well-balanced diet: about half the time daily servings fruits/ve-4 caffeine: Yes (aware of 200mg limit) Type(s) of exercise: aerobic and bicycling Smoking Status: Never smoker alcohol intake frequency: 0-2 drinks per day Exam Initial Vital Signs Initial Vital Signs: Vital Signs Temperature 97.7 F 09/13/24 00:58 Pulse Rate 107 H 09/13/24 00:58 Respiratory Rate 18 09/13/24 00:58 Blood Pressure 152/91 H 09/13/24 00:58 Pulse Oximetry 98 09/13/24 00:58 Oxygen Delivery Method Room Air 09/13/24 00:58 Const General: cooperative, No comfortable, acute distress, in distress, anxious, No diaphoretic, ill appearing and No lethargic HENAR Head: normal to inspection, normocephalic, atraumatic and No cyanosis of lips/distal nose Ears: TM's normal bilaterally and EAC's normal Face and sinus: normal facial exam Mouth: oropharynx normal Eyes General: Yes appearance normal, both eyes and all related structures Neck Neck: normal visual inspection, supple and No tender Resp Effort & Inspection: normal respiratory effort, no audible wheezes, no cough, not labored, no respiratory distress, no retractions, no stridor, not tachypneic and no use of accessory muscles Auscultation: clear to auscultation bilaterally Cardio Rate: regular rate Rhythm: regular rhythm Heart Sounds: S1 normal and S2 normal Bruits: no abdominal aortic bruits GI Palpation: soft and tender Percussion: no fluid wave Auscultation: normal bowel sounds General: No CVA tenderness Back/Spine/Pelvis Thoracic/Lumbar Spine: No paraspinal tenderness, No thoracic spinal tenderness and No lumbar spinal tenderness Skin General: no rashes or lesions noted Course Course Course Narrative: Patient seen and examined by myself in the ER. She had extreme pain and the only discernible cause from the entire cardiopulmonary and abdominal workup was elongated and distended gallbladder with stones. It was not convincing for call us cystitis on CT. The white count was mildly elevated as well but LFTs and bili were within normal limits and procalcitonin was negative as well. Since the patient was tachycardic, likely from pain, on presentation she was also having a septic workup. After her entire workup was negative except for the inconclusive gallbladder finding on CT I discussed the case with the surgeon on-call who agreed to consult and see the patient in the morning for possible cholecystitis. This would be the highest on my differential for now since the patient is pain is primary epigastric and right upper quadrant as well as in the chest. However, there is low concern for acute WA or PE at this time. I then discussed the case with the hospitalist who would be admitting the patient and accepted her. He just advised me to add on a right upper quadrant ultrasound to better characterize the gallbladder as well. The surgeon stated that we should not start antibiotics at this time until he can see her. She was admitted in stable cardiopulmonary condition. Orders Ordered: ED Orders 09/13/24 00:57 EKG-12 Lead Stat 09/13/24 01:10 Complete Blood Count AUTO DIFF Stat Comprehensive Metabolic Panel Stat D Dimer Stat Lactate (Lactic Acid) Stat Lipase Stat Magnesium Stat NT-proBNP (BNP-Adult 18+) Stat PTT Partial Thromboplastin [place] Stat Test Serum,Qual Stat Procalcitonin Stat Prothrombin Time INR Stat TSH [Thyroid Stimulating Hormone] Stat Troponin & CK Cardiac Panel Stat 09/13/24 01:41 CT abdomen pelvis w con Stat CT angio chest Stat 09/13/24 03:00 Urinalysis and Microscopic Stat Urine Drug Screen, Rapid Stat 09/13/24 03:29 Respiratory Panel (Film Array) Stat 09/13/24 03:34 EKG-12 Lead Stat 09/13/24 03:41 US abdomen limited Stat 09/13/24 03:50 Acetaminophen Stat Blood Culture Stat ETOH [Ethanol (ETOH)] Stat Salicylate Stat Trop I [Troponin I] Stat 09/14/24 06:00 Complete Blood Count AUTO DIFF DAILY Comprehensive Metabolic Panel DAILY Acetaminophen (Acetaminophen 325 Mg Tablet) 650 mg PO Q6H PRN PRN Reason: Fever/Mild Pain (1-3) Hydrocodone Bitart/Acetaminophen (Hydrocodone/Acet 5/325 Tablet) 1 tab PO Q4H PRN PRN Reason: Pain, Moderate (4-6) Hydromorphone HCl (Hydromorphone Hcl 0.5 Mg/0.5 Ml Syringe) 1 mg IV Q2H PRN PRN Reason: Pain, Severe (7-10) Sodium Chloride (Normal Saline 0.9%) 1,000 mls @ 100 mls/hr IV CONT TAMARA Metoclopramide HCl (Metoclopramide 10 Mg/2 Ml Inj) 10 mg IV Q6HR PRN PRN Reason: Nausea And Vomiting Naloxone HCl (Naloxone 0.4 Mg/Ml Vial) 0.2 mg IV Q2MIN PRN PRN Reason: Opiate Reversal Ondansetron HCl (Ondansetron 4 Mg/2 Ml Inj) 4 mg IV Q8HR PRN PRN Reason: Nausea And Vomiting Discontinued Medications Aspirin (Aspirin 81 Mg Chew Tab) 324 mg PO NOW ONE Stop: 09/13/24 00:58 Last Admin: 09/13/24 03:13 Dose: Not Given Documented By: ERIKA Hydromorphone HCl (Hydromorphone 1 Mg Inj) 1 mg IV NOW ONE Stop: 09/13/24 01:42 Last Admin: 09/13/24 01:55 Dose: 1 mg Documented By: STEPHANIE Hydromorphone HCl (Hydromorphone 1 Mg Inj) 2 mg IV NOW ONE Stop: 09/13/24 02:57 Last Admin: 09/13/24 03:03 Dose: 2 mg Documented By: ERIKA Sodium Chloride (Normal Saline 0.9%) 1,000 mls @ 1,000 mls/hr IV BOLUS ONE Stop: 09/13/24 04:28 Last Admin: 09/13/24 04:09 Dose: 1,000 mls/hr Documented By: ERIKA Ondansetron HCl (Ondansetron 4 Mg/2 Ml Inj) 4 mg IV NOW ONE Stop: 09/13/24 01:06 Last Admin: 09/13/24 01:16 Dose: 4 mg Documented By: MARAL Ondansetron HCl (Ondansetron 4 Mg/2 Ml Inj) 4 mg IV NOW ONE Stop: 09/13/24 01:42 Last Admin: 09/13/24 03:47 Dose: 4 mg Documented By: AB Vital Signs Vital signs: Vital Signs - 8 hr 09/13/24 00:58 09/13/24 02:22 09/13/24 02:30 Temperature 97.7 F Pulse Rate 107 H 93 H 92 H Respiratory Rate 18 31 H Blood Pressure 152/91 H Pulse Oximetry 98 100 100 Oxygen Delivery Method Room Air 09/13/24 02:32 09/13/24 02:32 09/13/24 03:02 Temperature Pulse Rate 93 H 101 H Respiratory Rate 26 H Blood Pressure 143/96 H Pulse Oximetry 100 94 Oxygen Delivery Method 09/13/24 03:09 09/13/24 03:09 Temperature Pulse Rate 84 Respiratory Rate 7 L Blood Pressure 149/90 H Pulse Oximetry 100 Oxygen Delivery Method MDM - Chest Pain Differential Diagnosis Differential diagnosis: Likely fracture of rib, stable angina, unstable angina pectoris, atypical chest pain, st elevation myocardial infarction, costochondritis, chest pain and biliary colic Lab Data 09/13/24 01:10 09/13/24 01:10 Labs: Lab Results 09/13/24 09/13/24 09/13/24 Range/Units 01:10 03:00 03:00 WBC 12.4 H (4.5-11.0) X10^3/uL RBC 4.54 (4.0-5.2) X10^6/uL Hgb 14.0 (12.0-16.0) g/dL Hct 40.9 (36-46) % MCV 90.1 (80-100) fL MCH 30.9 (26-34) PG MCHC 34.3 (30-36) % RDW 12.5 (11.6-14.8) % Plt Count 383 (150-400) X10^3/uL Neut % (Auto) 54.6 (50-75) % Lymph % (Auto) 37.7 (25-40) % [place] % (Auto) 5.6 (3-14) % Eos % (Auto) 1.3 L (2-4) % Baso % (Auto) 0.8 (0-2) % Neut # (Auto) 6800 (6765-6837) /uL Lymph # (Auto) 4700 H (1469-0681) /uL [place] # (Auto) 700 (0-900) /uL Eos # (Auto) 200 (0-450) /uL Baso # (Auto) 100 (0-100) /uL PT 10.6 (9.4-12.5) SECONDS INR 0.9 (0.9-1.3) APTT 32 (25.1-36.5) SECONDS D-Dimer 632 H (<500) ng/ml Sodium 139 (137-145) mmol/L Potassium 4.0 (3.4-5.1) mmol/L Chloride 108 H (98-107) mmol/L Carbon Dioxide 21 L (22-32) mmol/L BUN 9 (7-17) mg/dL Creatinine 0.70 (0.52-1.04) mg/dL Estimated GFR > 60 (>60) mL/min BUN/Creatinine Ratio 12.9 (6-22) Glucose 96 (70-99) mg/dL Lactate 1.9 (0.7-2.1) mmol/L Calcium 9.4 (8.4-10.2) mg/dL Magnesium 1.8 (1.6-2.3) mg/dL Total Bilirubin 0.4 (0.2-1.3) mg/dL AST 28 (14-36) IU/L ALT 20 (<35) IU/L Alkaline Phosphatase 84 (38-126) U/L Total Creatine Kinase 58 (30-135) U/L Troponin I < 0.012 (0.01-0.034) ng/mL NT-Pro-B Natriuret Pep < 20 (<125) pg/mL Total Protein 7.2 (6.3-8.2) g/dL Albumin 4.4 (3.5-5.0) g/dL Globulin 2.8 (1.7-4.1) g/dL Albumin/Globulin Ratio 1.6 (1.0-2.8) Lipase 110 (23-300) U/L Procalcitonin < 0.030 (<0.5) ng/mL TSH 6.23 H (0.47-4.68) uIU/mL Serum , Qual Negative (Negative) Urine Color Yellow Urine Appearance Clear Urine pH 8.0 TNP (4.5-8.0) Ur Specific [place] 1.010 (1.000-1.035) Urine Protein Negative (Negative) Urine Glucose (UA) Negative (Negative) g/dL Urine Ketones Negative (NEGATIVE) Urine Occult Blood Negative (Negative) Urine Nitrate Negative (Negative) Urine Bilirubin Negative (NEGATIVE) Urine Urobilinogen 0.2 (0.2) E.U./dL Ur Leukocyte Esterase Negative (NEGATIVE) Urine RBC None seen (0-5/HPF) Urine WBC None seen (0-5/HPF) Ur Squamous Epith Cells None seen (0-5/HPF) Urine Bacteria None seen (None) Ur Culture Indicated? Cult not indicated Vol Urine Centrifuged 10ml (spun) U Opiates 300ng/mL cut Negative (Negative) Ur Oxycodone Screen Negative (Negative) Urine Methadone Screen Negative (Negative) Ur Barbiturates Screen Negative (Negative) U Tricyclic Antidepress Negative (Negative) Ur Phencyclidine Scrn Negative (Negative) Ur Amphetamines Screen Negative (Negative) U Methamphetamines Scrn Negative (Negative) Ur MDMA Scrn (Ecstasy) Negative (Negative) U Benzodiazepines Scrn Negative (Negative) Urine Cocaine Screen Negative (Negative) U Marijuana (THC) Screen Negative (Negative) Urine Specific [place] TNP Ur Creatinine TNP ECG Data Interpretation: Normal sinus rhythm. Rate 81. QTC 450. Normal EKG. Discharge Plan Departure Patient Disposition: Admitted as Observation Clinical Impression: Abdominal pain Qualifiers: Abdominal location: unspecified location Qualified Code(s): R10.9 - Unspecified abdominal pain Admit Date/Time: 09/13/24 03:45 Admit Provider: Kirill Li
[2024-09-13 04:31] LABS: Troponin I < 0.012 ng/mL (0.01-0.034)
[2024-09-13 04:49] LABS: Acetaminophen < 10 ug/mL (10-30); Ethanol (ETOH) < 10 mg/dL (<10); Salicylate < 1.0 mg/dL (<20)
[2024-09-13] MEDS: SODIUM CHLORIDE 0.9% 1,000 ML 100 ML IV (05:04)
[2024-09-13 05:34] LABS: Coronavirus NL 63 Not Detected (Not Detect); SARS- CoV-2 Not Detected (Not Detecte)
[2024-09-13] MEDS: SCOPOLAMINE 1 PATCH TOP (05:47)
[2024-09-13] MEDS: MORPHINE 2 MG/ML INJ IV (05:48)
--- NOTE | 2024-09-13 07:18 | P.HP_ITS ---
History of Present Illness History of Present Illness Date Patient Seen: 09/13/24 Chief complaint: chest pain, back pain Narrative: From night doctor: 28-year-old female with past medical history of RLS and anxiety presents with complaint of upper abdominal lower chest pain. Per the patient report, the patient had an acute onset of abdominal and chest pain. The patient states that her abdominal is in the epigastric. Area and her lower chest has increasing pain that is sharp in nature and nonradiating. The patient has some nausea but denies any vomiting. The patient also denies any recent fever, chills, dysuria, coughing. Denies any prior history of abdominal pain. Denies being . In the emergency room, the patient was hemodynamically stable. Labs were relatively nicer for WBC of 12 and D-dimer in the 600. CT angio chest and CT abdomen with contrast shows no PE, aortic dissection or any abnormality to suggest the cause of the pain. However the CT did shows an elongated gallbladder but no clear visible stone seen. ER physician did consult the general surgeon who recommended we admit the patient to observation with pain control IV fluid. The general surgeon will evaluate the patient this morning. Right upper quadrant abdominal ultrasound was also ordered. Of note LFTs and bilirubin normal. Lipase also normal. test negative. The patient was given IV fluid pain control with IV Dilaudid. Tropes was negative and EKG shows no sign of acute ischemia. S: PFSH Medical History Heart palpitations Bartholin cyst (~2012) Eczema Anisocoria Skin rash Surgical History History of breast reconstruction (~2020) History of removal of skin mole [place] teeth extracted Family History Father Skin cancer Grandfather Skin cancer Prostate cancer Hypertension Rheumatoid arthritis Grandmother Ovarian cyst H/O: hysterectomy Stroke Osteoarthritis Mother Arthritis Social History marital status: unmarried,living together number of children: 0 household members: significant other lives independently: Yes caregiver/support person: No housing: house pets and animals: Yes (2 cats, 1 dog) education level: college occupational status: employed current occupational exposures/hazards: No special philip needs: No travel history: over 6 months ago seatbelt use: always helmet use: Yes water heater temp set < 120 deg: Yes working smoke detector in home: Yes fire extinguisher in home: Yes carbon monox detector in home: Yes firearms in home: Yes firearms unloaded and locked: Yes do you feel safe at home: Yes Smoking Status: Never smoker second hand exposure: No alcohol intake: never substance use type: does not use during the past year weight has: decreased > 10 lbs well-balanced diet: about half the time daily servings fruits/ve-4 caffeine: Yes (aware of 200mg limit) Type(s) of exercise: aerobic and bicycling Meds Home Medications and Allergies Home Medications ?Medication ?Instructions ?Recorded ?Confirmed ?Type mecobalamin (vitamin B12) 1,000 1,000 mcg sublingual D AILY 05/04/23 09/11/24 History mcg disintegrating tablet,sublingual docosahexaenoic acid 200 mg mg PO 02/28/24 09/11/24 Hi story capsule ( DHA) loratadine 10 mg tablet (Allergy 10 mg PO DAILY 09/11/24 History Relief (loratadine)) ferrous sulfate 325 mg (65 mg 325 mg PO DAILY 05/08/24 09/11/24 History iron) tablet bupropion HCl 150 mg 24 hr tablet, 300 mg (2 x 150 mg) PO DAILY #180 08/21/24 09/11/24 Rx extended release tabs buspirone 5 mg tablet 5 mg PO BID #60 tabs 09/11/24 Rx gabapentin 300 mg capsule 300 mg PO BEDTIME #30 caps 0 08/21/24 09/11/24 Rx L norgest/E estradiol-E estrad 1 tab PO Q24H #182 ea 0 09/11/24 09/11/24 Rx 0.15 mg-30 mcg (84)/10 mcg(7) tabs,3mos (Ashlyna) fluoxetine 10 mg tablet 10 mg PO DAILY #30 tabs 08/2809/11/24 Rx propranolol 10 mg tablet 10 mg PO BID PRN anxiety #30 tabs 09/11/24 09/11/24 Rx Allergies Allergy/AdvReac Type Severity Reaction Status Date / Time cephalexin (From Keflex) AdvReac Hives Verified 09/13/24 00:57 Review of Systems Review of Systems Narrative: All else reviewed and otherwise unremarkable except as noted in the history and physical. Exam Vital Signs (past 8 hours): - 09/13/24 00:58 09/13/24 02:22 09/13/24 02:30 Temperature 97.7 F Pulse Rate 107 H 93 H 92 H Respiratory Rate 18 31 H Blood Pressure 152/91 H Pulse Oximetry 98 100 100 Oxygen Delivery Method Room Air 09/13/24 02:32 09/13/24 02:32 09/13/24 03:02 Temperature Pulse Rate 93 H 101 H Respiratory Rate 26 H Blood Pressure 143/96 H Pulse Oximetry 100 94 Oxygen Delivery Method 09/13/24 03:09 09/13/24 03:09 09/13/24 03:30 Temperature Pulse Rate 84 99 H Respiratory Rate 7 L 34 H Blood Pressure 149/90 H Pulse Oximetry 100 100 Oxygen Delivery Method 09/13/24 03:30 09/13/24 04:00 09/13/24 04:00 Temperature Pulse Rate 91 H Respiratory Rate 24 Blood Pressure 147/99 H 120/76 Pulse Oximetry 85 L Oxygen Delivery Method 09/13/24 04:29 09/13/24 04:30 09/13/24 04:30 Temperature Pulse Rate 80 87 Respiratory Rate 26 H 18 Blood Pressure 116/70 Pulse Oximetry 100 100 Oxygen Delivery Method 09/13/24 05:03 Temperature Pulse Rate Respiratory Rate Blood Pressure Pulse Oximetry Oxygen Delivery Method Room Air Oxygen Delivery Method Room Air Narrative Exam Narrative: NAD, alert and oriented, fluent speech, calm. Normocephalic skull, EOMI, anicteric sclera, symmetric pupils. Oropharynx unremarkable, no droop. Neck supple, midline trachea, no adenopathy. Lungs clear, normal rate and effort. Heart regular, no murmur gallop or rub. Abdomen is soft, non distended and non tender. Extremities are free of edema. Skin is free of rash or lesions. Joints are not swollen or deformed. Judgment appears to be normal. Objective Imaging Multiple studies:: Radiologist's impression: Abdomen ultrasound: Cholelithiasis without sonographic Ren's sign to suggest cholecystitis. Chest CTA: No acute dissection. No central pulmonary embolism. No pulmonary consolidation or pleural effusion. Abdomen pelvis CT: Mild enterocolitis suspected. No bowel obstruction. Other findings above. Labs 09/13/24 01:10 09/13/24 01:10 Labs: Laboratory Results - last 24 hr 09/13/24 09/13/24 09/13/24 01:10 03:00 03:00 WBC 12.4 H RBC 4.54 Hgb 14.0 Hct 40.9 MCV 90.1 MCH 30.9 MCHC 34.3 RDW 12.5 Plt Count 383 Neut % (Auto) 54.6 Lymph % (Auto) 37.7 [place] % (Auto) 5.6 Eos % (Auto) 1.3 L Baso % (Auto) 0.8 Neut # (Auto) 6800 Lymph # (Auto) 4700 H [place] # (Auto) 700 Eos # (Auto) 200 Baso # (Auto) 100 PT 10.6 INR 0.9 APTT 32 D-Dimer 632 H Sodium 139 Potassium 4.0 Chloride 108 H Carbon Dioxide 21 L BUN 9 Creatinine 0.70 Estimated GFR > 60 BUN/Creatinine Ratio 12.9 Glucose 96 Lactate 1.9 Calcium 9.4 Magnesium 1.8 Total Bilirubin 0.4 AST 28 ALT 20 Alkaline Phosphatase 84 Total Creatine Kinase 58 Troponin I < 0.012 NT-Pro-B Natriuret Pep < 20 Total Protein 7.2 Albumin 4.4 Globulin 2.8 Albumin/Globulin Ratio 1.6 Lipase 110 Procalcitonin < 0.030 TSH 6.23 H Serum , Qual Negative Urine Color Yellow Urine Appearance Clear Urine pH 8.0 TNP Ur Specific [place] 1.010 Urine Protein Negative Urine Glucose (UA) Negative Urine Ketones Negative Urine Occult Blood Negative Urine Nitrate Negative Urine Bilirubin Negative Urine Urobilinogen 0.2 Ur Leukocyte Esterase Negative Urine RBC None seen Urine WBC None seen Ur Squamous Epith Cells None seen Urine Bacteria None seen Ur Culture Indicated? Cult not indicated Vol Urine Centrifuged 10ml (spun) Salicylates U Opiates 300ng/mL cut Negative Ur Oxycodone Screen Negative Urine Methadone Screen Negative Acetaminophen Ur Barbiturates Screen Negative U Tricyclic Antidepress Negative Ur Phencyclidine Scrn Negative Ur Amphetamines Screen Negative U Methamphetamines Scrn Negative Ur MDMA Scrn (Ecstasy) Negative U Benzodiazepines Scrn Negative Urine Cocaine Screen Negative U Marijuana (THC) Screen Negative Urine Specific [place] TNP Ethyl Alcohol Ur Creatinine TNP Chlamy pneumoniae PCR Not detected Adenovirus (PCR) Not detected B. pertussis DNA (PCR) Not detected B.parapertussis DNA PCR Not detected Coronavirus OC43 (PCR) Not detected Coronavirus HKU1 (PCR) Not detected Coronavirus 229E (PCR) Not detected SARS-CoV-2 (PCR) Not detected Coronavirus NL63 (PCR) Not detected Human Metapneumovir PCR Not detected Influenza Type A (PCR) Not detected Influenza Type B (PCR) Not detected M. pneumoniae (PCR) Not detected Parainfluenza 1 (PCR) Not detected Parainfluenza 2 (PCR) Not detected Parainfluenza 3 (PCR) Not detected Parainfluenza 4 (PCR) Not detected RSV (PCR) Not detected Entero/Rhino (PCR) Not detected 09/13/24 03:50 WBC RBC Hgb Hct MCV MCH MCHC RDW Plt Count Neut % (Auto) Lymph % (Auto) [place] % (Auto) Eos % (Auto) Baso % (Auto) Neut # (Auto) Lymph # (Auto) [place] # (Auto) Eos # (Auto) Baso # (Auto) PT INR APTT D-Dimer Sodium Potassium Chloride Carbon Dioxide BUN Creatinine Estimated GFR BUN/Creatinine Ratio Glucose Lactate Calcium Magnesium Total Bilirubin AST ALT Alkaline Phosphatase Total Creatine Kinase Troponin I < 0.012 NT-Pro-B Natriuret Pep Total Protein Albumin Globulin Albumin/Globulin Ratio Lipase Procalcitonin TSH Serum , Qual Urine Color Urine Appearance Urine pH Ur Specific [place] Urine Protein Urine Glucose (UA) Urine Ketones Urine Occult Blood Urine Nitrate Urine Bilirubin Urine Urobilinogen Ur Leukocyte Esterase Urine RBC Urine WBC Ur Squamous Epith Cells Urine Bacteria Ur Culture Indicated? Vol Urine Centrifuged Salicylates < 1.0 U Opiates 300ng/mL cut Ur Oxycodone Screen Urine Methadone Screen Acetaminophen < 10 Ur Barbiturates Screen U Tricyclic Antidepress Ur Phencyclidine Scrn Ur Amphetamines Screen U Methamphetamines Scrn Ur MDMA Scrn (Ecstasy) U Benzodiazepines Scrn Urine Cocaine Screen U Marijuana (THC) Screen Urine Specific [place] Ethyl Alcohol < 10 Ur Creatinine Chlamy pneumoniae PCR Adenovirus (PCR) B. pertussis DNA (PCR) B.parapertussis DNA PCR Coronavirus OC43 (PCR) Coronavirus HKU1 (PCR) Coronavirus 229E (PCR) SARS-CoV-2 (PCR) Coronavirus NL63 (PCR) Human Metapneumovir PCR Influenza Type A (PCR) Influenza Type B (PCR) M. pneumoniae (PCR) Parainfluenza 1 (PCR) Parainfluenza 2 (PCR) Parainfluenza 3 (PCR) Parainfluenza 4 (PCR) RSV (PCR) Entero/Rhino (PCR) Assessment & Plan Assessment & Plan narrative: 1. Intractable abdominal/chest pain. Unclear etiology. CT angio of the chest and CT abdomen contrast shows no clear underlying cause. Patient labs including lipase LFTs bilirubin troponin are all negative. However there is some finding on CT scan of the abdomen and that suggest an elongated gallbladder. General surgery consulted and recommend we admit the patient for pain control, IV fluid. We also ordered a right upper quadrant abdominal ultrasound. Appreciate further input and management per general surgery. 2. Nausea/vomiting. IVF and IV antiemetics. 3. Dehydration. IV fluid. 4. RLS. Will need to resume home medication once abdominal pain controlled. 5. Anxiety. prn ativan. PLAN: -review imaging -surgical consult, discussed the case with him. He thinks that her acute pain relates to gallstones and that she was a good candidate for cholecystectomy. This will likely happen today. DVT prophylaxis SCDs CODE STATUS full code. Time-Based Coding :: 35 min spent with patient and on the chart (including review of chart, obtaining history, exam, reviewing outside data, placing orders, documenting exam and treatment plan, and counseling patient) on 09/13. Quality VTE Deep Vein Thrombosis/Pulmonary Embolism Present on Admission: No MIPS - Admit The patient?s Advance Care plan is not present because I confirmed today that the patient does not wish or was not able to name a surrogate decision maker or provide an Advance Care Plan.: Yes MIPS - Meds 'Current medications' to include all prescriptions, [id number] products, herbals, cannabis/cannabidiol products, and vitamin/mineral/dietary (nutritional) supplements. I have utilized all available resources to obtain, update, or review the patient?s current medications. [If Yes, STOP here]: Yes
[2024-09-13] MEDS: MORPHINE 4 MG/ML INJ IV ×3 (07:46→13:32)
[2024-09-13] MEDS: OXYCODONE IR 5 MG TABLET PO ×2 (08:28→19:58)
--- NOTE | 2024-09-13 09:41 | PM.CN.IH.1 ---
History of Present Illness Consult details Date Patient Seen: 09/13/24 Time Patient Seen: 09:42 Chief complaint: chest pain, back pain Reason for consult: Epigastric abdominal pain Narrative: The patient is a 28-year-old female who presented with an episode yesterday evening of sharp epigastric abdominal pain with radiation into her mid back. Pain was quite intense and unrelenting. She has never had a pain like this before. She presented to the emergency department last night and while undergoing a workup she had 5 episodes of vomiting. She has had pretty much continuous underlying pain which is being managed by narcotic pain medicine. She had a CT scan of the abdomen which revealed a dilated gallbladder and a subsequent ultrasound revealed stones within her gallbladder. Meds Home Medications and Allergies Home Medications ?Medication ?Instructions ?Recorded ?Confirmed ?Type mecobalamin (vitamin B12) 1,000 1,000 mcg sublingual DAILY 05/04/23 09/11/24 History mcg disintegrating tablet,sublingual docosahexaenoic acid 200 mg mg PO 02/28/24 09/11/24 History capsule ( DHA) loratadine 10 mg tablet (Allergy 10 mg PO DAILY 02/28/24 09/11/24 History Relief (loratadine)) ferrous sulfate 325 mg (65 mg 325 mg PO DAILY 05/08/24 09/11/24 History iron) tablet bupropion HCl 150 mg 24 hr tablet, 300 mg (2 x 150 mg) PO DAILY #180 08/21/24 09/11/24 Rx extended release tabs buspirone 5 mg tablet 5 mg PO BID #60 tabs 08/21/24 09/11/24 Rx gabapentin 300 mg capsule 300 mg PO BEDTIME #30 caps 08/21/24 09/11/24 Rx L norgest/E estradiol-E estrad 1 tab PO Q24H #182 ea 09/11/24 09/11/24 Rx 0.15 mg-30 mcg (84)/10 mcg(7) tabs,3mos (Ashlyna) fluoxetine 10 mg tablet 10 mg PO DAILY #30 tabs 09/11/24 09/11/24 Rx propranolol 10 mg tablet 10 mg PO BID PRN anxiety #30 tabs 09/11/24 09/11/24 Rx Allergies Allergy/AdvReac Type Severity Reaction Status Date / Time cephalexin (From Keflex) AdvReac Hives Verified 09/13/24 00:57 Review of Systems Review of Systems Narrative: Twelve point system review is essentially negative except for that in the HPI Exam Vital Signs (past 8 hours): - 09/13/24 02:22 09/13/24 02:30 09/13/24 02:32 Pulse Rate 93 H 92 H Respiratory Rate 31 H Blood Pressure 143/96 H Pulse Oximetry 100 100 Oxygen Delivery Method 09/13/24 02:32 09/13/24 03:02 09/13/24 03:09 Pulse Rate 93 H 101 H Respiratory Rate 26 H Blood Pressure 149/90 H Pulse Oximetry 100 94 Oxygen Delivery Method 09/13/24 03:09 09/13/24 03:30 09/13/24 03:30 Pulse Rate 84 99 H Respiratory Rate 7 L 34 H Blood Pressure 147/99 H Pulse Oximetry 100 100 Oxygen Delivery Method 09/13/24 04:00 09/13/24 04:00 09/13/24 04:29 Pulse Rate 91 H 80 Respiratory Rate 24 26 H Blood Pressure 120/76 Pulse Oximetry 85 L 100 Oxygen Delivery Method 09/13/24 04:30 09/13/24 04:30 09/13/24 05:03 Pulse Rate 87 Respiratory Rate 18 Blood Pressure 116/70 Pulse Oximetry 100 Oxygen Delivery Method Room Air Oxygen Delivery Method Room Air Narrative Exam Narrative: The patient is alert and oriented x3. HEENT is positive for dry oral and buccal mucosa. Neck is supple Lungs are clear to auscultation bilaterally Cardiac reveals a regular rate and rhythm without murmurs rubs or gallops Abdomen is soft with some mild epigastric and right upper quadrant tenderness without guarding or rigidity. There are no peritoneal signs. Extremities reveal full range of motion and no edema Objective Labs 09/13/24 01:10 09/13/24 01:10 Labs: Laboratory Results - last 24 hr 09/13/24 09/13/24 09/13/24 01:10 03:00 03:00 WBC 12.4 H RBC 4.54 Hgb 14.0 Hct 40.9 MCV 90.1 MCH 30.9 MCHC 34.3 RDW 12.5 Plt Count 383 Neut % (Auto) 54.6 Lymph % (Auto) 37.7 [place] % (Auto) 5.6 Eos % (Auto) 1.3 L Baso % (Auto) 0.8 Neut # (Auto) 6800 Lymph # (Auto) 4700 H [place] # (Auto) 700 Eos # (Auto) 200 Baso # (Auto) 100 PT 10.6 INR 0.9 APTT 32 D-Dimer 632 H Sodium 139 Potassium 4.0 Chloride 108 H Carbon Dioxide 21 L BUN 9 Creatinine 0.70 Estimated GFR > 60 BUN/Creatinine Ratio 12.9 Glucose 96 Lactate 1.9 Calcium 9.4 Magnesium 1.8 Total Bilirubin 0.4 AST 28 ALT 20 Alkaline Phosphatase 84 Total Creatine Kinase 58 Troponin I < 0.012 NT-Pro-B Natriuret Pep < 20 Total Protein 7.2 Albumin 4.4 Globulin 2.8 Albumin/Globulin Ratio 1.6 Lipase 110 Procalcitonin < 0.030 TSH 6.23 H Serum , Qual Negative Urine Color Yellow Urine Appearance Clear Urine pH 8.0 TNP Ur Specific [place] 1.010 Urine Protein Negative Urine Glucose (UA) Negative Urine Ketones Negative Urine Occult Blood Negative Urine Nitrate Negative Urine Bilirubin Negative Urine Urobilinogen 0.2 Ur Leukocyte Esterase Negative Urine RBC None seen Urine WBC None seen Ur Squamous Epith Cells None seen Urine Bacteria None seen Ur Culture Indicated? Cult not indicated Vol Urine Centrifuged 10ml (spun) Salicylates U Opiates 300ng/mL cut Negative Ur Oxycodone Screen Negative Urine Methadone Screen Negative Acetaminophen Ur Barbiturates Screen Negative U Tricyclic Antidepress Negative Ur Phencyclidine Scrn Negative Ur Amphetamines Screen Negative U Methamphetamines Scrn Negative Ur MDMA Scrn (Ecstasy) Negative U Benzodiazepines Scrn Negative Urine Cocaine Screen Negative U Marijuana (THC) Screen Negative Urine Specific [place] TNP Ethyl Alcohol Ur Creatinine TNP Chlamy pneumoniae PCR Not detected Adenovirus (PCR) Not detected B. pertussis DNA (PCR) Not detected B.parapertussis DNA PCR Not detected Coronavirus OC43 (PCR) Not detected Coronavirus HKU1 (PCR) Not detected Coronavirus 229E (PCR) Not detected SARS-CoV-2 (PCR) Not detected Coronavirus NL63 (PCR) Not detected Human Metapneumovir PCR Not detected Influenza Type A (PCR) Not detected Influenza Type B (PCR) Not detected M. pneumoniae (PCR) Not detected Parainfluenza 1 (PCR) Not detected Parainfluenza 2 (PCR) Not detected Parainfluenza 3 (PCR) Not detected Parainfluenza 4 (PCR) Not detected RSV (PCR) Not detected Entero/Rhino (PCR) Not detected 09/13/24 03:50 WBC RBC Hgb Hct MCV MCH MCHC RDW Plt Count Neut % (Auto) Lymph % (Auto) [place] % (Auto) Eos % (Auto) Baso % (Auto) Neut # (Auto) Lymph # (Auto) [place] # (Auto) Eos # (Auto) Baso # (Auto) PT INR APTT D-Dimer Sodium Potassium Chloride Carbon Dioxide BUN Creatinine Estimated GFR BUN/Creatinine Ratio Glucose Lactate Calcium Magnesium Total Bilirubin AST ALT Alkaline Phosphatase Total Creatine Kinase Troponin I < 0.012 NT-Pro-B Natriuret Pep Total Protein Albumin Globulin Albumin/Globulin Ratio Lipase Procalcitonin TSH Serum , Qual Urine Color Urine Appearance Urine pH Ur Specific [place] Urine Protein Urine Glucose (UA) Urine Ketones Urine Occult Blood Urine Nitrate Urine Bilirubin Urine Urobilinogen Ur Leukocyte Esterase Urine RBC Urine WBC Ur Squamous Epith Cells Urine Bacteria Ur Culture Indicated? Vol Urine Centrifuged Salicylates < 1.0 U Opiates 300ng/mL cut Ur Oxycodone Screen Urine Methadone Screen Acetaminophen < 10 Ur Barbiturates Screen U Tricyclic Antidepress Ur Phencyclidine Scrn Ur Amphetamines Screen U Methamphetamines Scrn Ur MDMA Scrn (Ecstasy) U Benzodiazepines Scrn Urine Cocaine Screen U Marijuana (THC) Screen Urine Specific [place] Ethyl Alcohol < 10 Ur Creatinine Chlamy pneumoniae PCR Adenovirus (PCR) B. pertussis DNA (PCR) B.parapertussis DNA PCR Coronavirus OC43 (PCR) Coronavirus HKU1 (PCR) Coronavirus 229E (PCR) SARS-CoV-2 (PCR) Coronavirus NL63 (PCR) Human Metapneumovir PCR Influenza Type A (PCR) Influenza Type B (PCR) M. pneumoniae (PCR) Parainfluenza 1 (PCR) Parainfluenza 2 (PCR) Parainfluenza 3 (PCR) Parainfluenza 4 (PCR) RSV (PCR) Entero/Rhino (PCR) [facility] Medical History Heart palpitations Bartholin cyst (~2012) Eczema Anisocoria Skin rash Surgical History History of breast reconstruction (~2020) History of removal of skin mole [place] teeth extracted Family History Father Skin cancer Grandfather Skin cancer Prostate cancer Hypertension Rheumatoid arthritis Grandmother Ovarian cyst H/O: hysterectomy Stroke Osteoarthritis Mother Arthritis Social History marital status: unmarried,living together number of children: 0 household members: significant other lives independently: Yes caregiver/support person: No housing: house pets and animals: Yes (2 cats, 1 dog) education level: college occupational status: employed current occupational exposures/hazards: No special philip needs: No travel history: over 6 months ago Safety seatbelt use: always helmet use: Yes water heater temp set < 120 deg: Yes working smoke detector in home: Yes fire extinguisher in home: Yes carbon monox detector in home: Yes firearms in home: Yes firearms unloaded and locked: Yes do you feel safe at home: Yes Tobacco & Substance Use Smoking Status: Never smoker second hand exposure: No alcohol intake: never substance use type: does not use Diet and Exercise during the past year weight has: decreased > 10 lbs well-balanced diet: about half the time daily servings fruits/ve-4 caffeine: Yes (aware of 200mg limit) Type(s) of exercise: aerobic and bicycling Assessment & Plan Assessment and plan (1) Abdominal pain: Qualifiers: Abdominal location: unspecified location Qualified Code(s): R10.9 - Unspecified abdominal pain Status: Acute (2) Chronic cholecystitis: Status: Acute Plan We will plan a laparoscopic cholecystectomy move times, is available in the OR. Once I have a time schedule we will perform informed consent. Time-Based Coding :: [TOTAL MINUTES] spent with patient and on the chart (including review of chart, obtaining history, exam, reviewing outside data, placing orders, documenting exam and treatment plan, and counseling patient) on [DATE]. PROFEE Charge Codes Inpatient or Observation consultation: [id number]
[2024-09-13] MEDS: LACTATED RINGERS 1,000 ML 42 ML IV (10:39)
[2024-09-13] MEDS: VANCOMYCIN 1,000 MG in SODIUM CHLORIDE 0.9% 250 ML 250 MG IV (10:40)
[2024-09-13] MEDS: BUPIVACAINE 0.5% W/ EPI (PF) 30 ML VIAL INJ (11:25)
--- NOTE | 2024-09-13 11:36 | SUR.OPER ---
Supine on padded OR bed, head on pillow, arms secured on padded arm boards at <90 degrees abduction, legs uncrossed, safety belt at thigh, tape over blanket over lower legs, footboard at feet
--- NOTE | 2024-09-13 11:44 | CM.DANOTE ---
Patient is a 28 yo female who was admitted OBS Status on 09/13/24 today for Abd Pain. Pt has [employer] for insurance and her PCP is Pilar Graham. EMR was reviewed. Per MD, pt with hx of restless leg syndrome and anxiety and admitted for intractable abd pain and imaging showed gallbaldder issues and per Surgeon pt to have IV hydration and plan of cholecystectomy today. SW met briefly bedside with pt and she confirms she lives in [place] with her Sig Other Leoncio and pt is active and independent at baseline. 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 Preference is home and Sig Other can transport. Plan: SW to follow for progress post cholecystectomy for plan of discharge home with supportive SO. SW to follow for any further identified discharge planning needs. DONNA Redd Discharge Planning/Care Management CM Discharge Assessment Start: 09/13/24 05:03 Freq: Status: Active Protocol: Document 09/13/24 11:42 BF (Rec: 09/13/24 11:44 BF [id number]) Discharge Planning Assessment Assigned Discharge DONNA Ross [employer]ing Observer Helper DPOA/Assigned informally Sig Other Designee Name Contact Information Leoncio Valiente Advance Directives? Yes Advance Directives No on File History Provided By Patient,Medical Record Has Patient been No admitted in last 30 days? Prior Living House Arrangements Household Members significant other Type of Drives own vehicle transporation used prior to admit Independent with ADL Yes 's Is patient alert and Yes oriented? Caregiver for No Another Barriers to No Discharge Discharge Plan Home Transportation Sig Other to transport Arrangement Referrals Initiated None needed Whiteboard Updated Yes in Patient Room with name and ext. # of Third Miller Review Status In Process Please Provide Date 09/13/24 Initial DC Assessment Was Performed Next Review Type Continued Stay Review
--- NOTE | 2024-09-13 11:50 | PC.NURSE ---
Addendum entered by Itzel Schneider R.N. 09/13/24 15:54: Pt dsgs remain CDI, Tolerating clear liq w/o issue. IVF now SL Amb in room Stable post op[ course. Call light w/in reach, pt calls appropriately for needs. Continue w/plan of care. Addendum entered by Itzel Schneider R.N. 09/13/24 14:35: Pt returned from PACU at 1410 Alert/denies discomfort at this time IVF infusing as per orders into RFA LFA SL intact/patent. Resting at this time Call light w/in reach, pt calls appropriately for needs Original Note: Pt presented w/ 10/10abdominal pain w/no relief. Orders for MS ans Oxycodone given. IVF infusing as per orders. Dr Springer in to see, Pt to OR suite at approximately 0930 Will assess upon return.
[2024-09-13] MEDS: ACETAMINOPHEN IV 1,000 MG/100 ML VIAL 400 MG IV (12:11)
--- NOTE | 2024-09-13 13:06 | PM.OP.1 ---
Operative Date/Time/Diagnoses Date of procedure: 09/13/24 Time of procedure: 11:10 Pre-op diagnosis: Chronic cholecystitis Post-op diagnosis: other (Acute on chronic cholecystitis) Procedure & Clinicians Procedure: Laparoscopic cholecystectomy Same procedure(s) as scheduled: Yes Indications: The patient is a 28-year-old female who presented with an episode yesterday evening of sharp epigastric abdominal pain with radiation into her mid back. Pain was quite intense and unrelenting. She has never had a pain like this before. She presented to the emergency department last night and while undergoing a workup she had 5 episodes of vomiting. She has had pretty much continuous underlying pain which is being managed by narcotic pain medicine. She had a CT scan of the abdomen which revealed a dilated gallbladder and a subsequent ultrasound revealed stones within her gallbladder. Surgeon: RIVKA* *Temp Click Yes if Unassisted: No Anesthesia Type: General Operative Notes Findings: Patient had dilated inflamed gallbladder with edema in the gallbladder fossa. Closure Type: primary Specimen(s): other (Gallbladder) Applied: none Estimated Blood Loss (mL): 10 Procedure in detail: After appropriate patient identification, the patient was placed on the procedure table in supine position. After achievement adequate general anesthesia, the abdomen was prepped with ChloraPrep and draped in a sterile manner. After the time-out, a midline incision was made below the umbilicus using a 15 blade knife. The incision was deepened to the linea alba using Bovie electrocautery. The linea Alba was opened under direct vision using Bovie electrocautery and the peritoneum was entered bluntly with an index finger. A zivpua-iz-etrdu suture of 0 Vicryl was placed in the linea Alba. A Hewson catheter was then inserted through the port site under direct vision and the balloon was insufflated. The eye was insufflated with carbon dioxide to 15 mmHg pressure. 5 mm trocar was placed through a stab incision in the epigastrium under direct vision and two 5 mm trocars were placed in the right upper quadrant through separate stab incisions, under direct vision. The gallbladder was tensely distended and difficult to grasp and therefore was aspirated using an aspiration needle. Gallbladder was then grasped with grasping clamps and retracted in the appropriate fashion. The anterior leaf of the hepatoduodenal ligament was dissected using a [place] dissector until we could identify the cystic duct. The cystic duct was then cleared of surrounding fibrofatty tissue using the [place] dissector. Subsequently the cystic artery was identified and dissected using a [place] dissector. The critical view was created and a picture was taken. The cystic duct was quite shortened and was doubly clipped distally and single clipped proximally. The cystic duct was divided using Endo Mets. The artery was doubly clipped both proximally and distally and divided using Endo meds. The gallbladder was dissected off of the liver bed using Bovie electrocautery. Hemostasis was assured using Bovie electrocautery. The gallbladder was then placed in a specimen bag and brought out through the subumbilical incision. The Villaseñor catheter was then reinserted and the end was re-insufflated. The right upper quadrant was copiously irrigated with sterile saline. The operative site was reinspected and hemostasis was assured. All trocars were removed and pictures taken of the insertion sites. The previously placed 0 Vicryl suture was then tied thereby closing the linea Alba. All skin incisions were reapproximated using 4-0 undyed Monocryl in interrupted subcuticular fashion. Steri-Strips and a sterile dressing was placed and the procedure was terminated. The patient was transferred to the recovery room in good condition having sustained approximately 10 cc blood loss. Complications: none Post-operative Condition: stable Disposition: PACU
[2024-09-13] MEDS: hydrOXYzine 50 MG/ML INJ IM (13:36)
[2024-09-13] MEDS: ACETAMINOPHEN 325 MG TABLET 650 MG PO (19:57)
[2024-09-13] MEDS: OXYCODONE IR 10 MG TABLET PO (21:43)
[2024-09-13] MEDS: GABAPENTIN 300 MG CAPSULE PO ×2 (21:44→22:02)
[2024-09-13] MEDS: SIMETHICONE 80 MG TABLET PO (22:02)
[2024-09-14] MEDS: OXYCODONE IR 5 MG TABLET PO (06:11)
[2024-09-14] MEDS: IBUPROFEN 400 MG TABLET PO (06:12)
[2024-09-14] MEDS: ACETAMINOPHEN 325 MG TABLET 650 MG PO ×2 (06:31→13:15)
[2024-09-14 07:06] LABS: Add Manual Diff / Slide Review NO; Hematocrit 38.9 % (36-46); Hemoglobin 13.4 g/dL (12.0-16.0); Lymphocytes Absolute Auto 3300 /uL (1100-4500); Mean Corpuscular HGB Conc 34.5 % (30-36); Mean Corpuscular Hemoglobin 31.3 PG (26-34); Mean Corpuscular Volume 90.6 fL (80-100); Platelet Count 345 X10^3/uL (150-400)
[2024-09-14 07:09] LABS: Alanine Aminotransferase 56 IU/L (<35); Albumin 3.7 g/dL (3.5-5.0); Albumin Globulin Ratio 1.4 (1.0-2.8); Alkaline Phosphatase 69 U/L (38-126); Blood Urea Nitrogen 4 mg/dL (7-17); Calcium 8.3 mg/dL (8.4-10.2); Carbon Dioxide 20 mmol/L (22-32); Chloride 109 mmol/L (98-107); Estimated Glomerular Filt Rate > 60 mL/min (>60); Globulin 2.6 g/dL (1.7-4.1); Glucose 87 mg/dL (70-99); HEMOLYSIS 34 (0-50); Potassium 3.5 mmol/L (3.4-5.1); Sodium 137 mmol/L (137-145); Total Protein 6.3 g/dL (6.3-8.2)
[2024-09-14 08:00] VITALS: BP 114/82; PULSE 87; RESP 15; TEMP 36.4; O2SAT 100
[2024-09-14] MEDS: SIMETHICONE 80 MG TABLET PO (08:22)
[2024-09-14] MEDS: SENNOSIDES 8.6 MG TABLET PO (08:22)
[2024-09-14] MEDS: HYDROMORPHONE 1 MG INJ IV (08:22)
[2024-09-14] MEDS: FLUoxetine 10 MG CAPSULE PO (08:22)
[2024-09-14] MEDS: SODIUM CHLORIDE 0.9% FLUSH 10 ML IV (08:23)
--- NOTE | 2024-09-14 09:15 | PM.PN.IH.1 ---
Subjective Subjective Date Patient Seen: 09/14/24 Time Patient Seen: 09:15 Interval history: Patient is doing well. Had an episode of some right shoulder pain last night which appears to have resolved. She has tolerating a diet. Exam Vital Signs (past 8 hours): - 09/14/24 08:00 Temperature 97.6 F Pulse Rate 87 Respiratory Rate 15 Blood Pressure 114/82 Pulse Oximetry 100 Oxygen Flow Rate 0 Oxygen Delivery Method Room Air Oxygen Flow Rate 0 Narrative Exam Narrative: Abdomen is soft, nontender, with active bowel sounds all dressings are dry and intact Objective Labs 09/14/24 06:00 09/14/24 06:00 Labs: Laboratory Results - last 24 hr 09/14/24 06:00 WBC 13.4 H RBC 4.29 Hgb 13.4 Hct 38.9 MCV 90.6 MCH 31.3 MCHC 34.5 RDW 12.4 Plt Count 345 Neut % (Auto) 67.0 Lymph % (Auto) 24.9 L [place] % (Auto) 6.9 Eos % (Auto) 0.4 L Baso % (Auto) 0.8 Neut # (Auto) 9000 H Lymph # (Auto) 3300 [place] # (Auto) 900 Eos # (Auto) 100 Baso # (Auto) 100 Sodium 137 Potassium 3.5 Chloride 109 H Carbon Dioxide 20 L BUN 4 L Creatinine 0.58 Estimated GFR > 60 BUN/Creatinine Ratio 6.9 Glucose 87 Calcium 8.3 L Total Bilirubin 0.7 AST 60 H ALT 56 H Alkaline Phosphatase 69 Total Protein 6.3 Albumin 3.7 Globulin 2.6 Albumin/Globulin Ratio 1.4 PFSH Medical History Heart palpitations Bartholin cyst (~2012) Eczema Anisocoria Skin rash Surgical History History of breast reconstruction (~2020) History of removal of skin mole [place] teeth extracted Family History Father Skin cancer Grandfather Skin cancer Prostate cancer Hypertension Rheumatoid arthritis Grandmother Ovarian cyst H/O: hysterectomy Stroke Osteoarthritis Mother Arthritis Social History marital status: unmarried,living together number of children: 0 household members: significant other lives independently: Yes caregiver/support person: No housing: house pets and animals: Yes (2 cats, 1 dog) education level: college occupational status: employed current occupational exposures/hazards: No special philip needs: No travel history: over 6 months ago seatbelt use: always helmet use: Yes water heater temp set < 120 deg: Yes working smoke detector in home: Yes fire extinguisher in home: Yes carbon monox detector in home: Yes firearms in home: Yes firearms unloaded and locked: Yes do you feel safe at home: Yes Smoking Status: Never smoker second hand exposure: No alcohol intake: never substance use type: does not use during the past year weight has: decreased > 10 lbs well-balanced diet: about half the time daily servings fruits/ve-4 caffeine: Yes (aware of 200mg limit) Type(s) of exercise: aerobic and bicycling Assessment & Plan Assessment and plan (1) Chronic cholecystitis: Status: Acute (2) Acute cholecystitis: Status: Acute Plan we will discharge the patient to home. I have instructed the patient no lifting more than 10 lb for 6 weeks and no driving while taking narcotic pain medicine. We will ask her to follow up with 1 of the surgeons in the next 7-10 days. Time-Based Coding :: [TOTAL MINUTES] spent with patient and on the chart (including review of chart, obtaining history, exam, reviewing outside data, placing orders, documenting exam and treatment plan, and counseling patient) on [DATE]. 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
--- NOTE | 2024-09-14 09:53 | P.DS_ITS ---
History of Present Illness History of Present Illness Date Patient Seen: 09/14/24 Time Patient Seen: 09:53 Date of Onset of Symptoms: 09/11/24 Chief complaint: chest pain, back pain Narrative: The patient is a 28-year-old female who presented with an episode yesterday evening of sharp epigastric abdominal pain with radiation into her mid back. Pain was quite intense and unrelenting. She has never had a pain like this before. She presented to the emergency department last night and while undergoing a workup she had 5 episodes of vomiting. She has had pretty much continuous underlying pain which is being managed by narcotic pain medicine. She had a CT scan of the abdomen which revealed a dilated gallbladder and a subsequent ultrasound revealed stones within her gallbladder. Discharge Providers Provider Date of admission: 09/13/24 03:45 Discharge Date: 09/14/24 Primary care physician: Pilar Graham MD Consults: 09/13/24 13:00 Consult to Discharge Planning Routine Comment: Discharge provider: Krishna Springer MD Summary Hospital Course Discharge Diagnosis: acute on chronic cholecystitis Hospital Course: patient underwent laparoscopic cholecystectomy yesterday without complication. Patient's postop course was completely unremarkable and will be discharged home today. Status at Discharge Cognitive/behavioral status at discharge: oriented Functional status at discharge: independent ambulation Time Spent with Patient Time spent: Greater than 30 minutes Exam Vital Signs (past 8 hours): - 09/14/24 07:00 09/14/24 08:00 Temperature 97.6 F Pulse Rate 87 Respiratory Rate 15 Blood Pressure 114/82 Pulse Oximetry 100 Oxygen Delivery Method Room Air Oxygen Flow Rate 0 Oxygen Delivery Method Room Air Oxygen Flow Rate 0 Narrative Exam Narrative: abdomen is soft, nontender, with active bowel sounds. Dressings are and intact Objective Imaging US - abdomen: Radiologist's impression: PROCEDURE: US ABDOMEN LIMITED INDICATIONS: RUQ gallbladder TECHNIQUE: Real-time focused scanning was performed of the abdomen, with image documentation. COMPARISON: None. FINDINGS: Liver measures 14 cm. Cholelithiasis. No sonographic Ren sign. No pathologic wall thickening. CBD measures 4 mm. Unremarkable pancreas. IMPRESSION: Cholelithiasis without sonographic Ren's sign to suggest cholecystitis. Agree with preliminary report Dictated by: Bertram Fitch M.D. on 09/13/2024 at 7:24 Approved by: Bertram Fitch M.D. on 09/13/2024 at 7:25 CT scan - abdomen: Radiologist's impression: [address] [address] [address] Scan Report Signed Patient: [place] [facility] MR#: [id number] : 1995 Acct:[id number] Age/Sex: 28 / F Date of Service: 09/13/24 Loc: 202-1 Accession Number: [id number] Procedure: CT abdomen pelvis w con Ordering Provider: Power Pineda MD PROCEDURE: CT ABDOMEN PELVIS W CON INDICATIONS: Chest/back pain, Epigastric pain, rapid breathing TECHNIQUE: After the administration of intravenous contrast, axial sections acquired from the lung bases to the pubic symphysis. Coronal and sagittal reformats were performed. For radiation dose reduction, the following was used: automated exposure control, adjustment of mA and/or kV according to patient size. COMPARISON: None. FINDINGS: Image quality: Diagnostic Lower chest: Unremarkable Liver: Unremarkable Gallbladder and biliary system: Possible small gas containing gallstones. Ultrasound findings separately dictated. No biliary ductal dilation. Pancreas: No ductal dilation Spleen: Nonenlarged Adrenals: No discrete nodules Kidneys: No solid renal mass. No hydronephrosis. Vessels and lymph nodes: The main portal vein is patent. No abdominal aortic aneurysm. No enlarged lymph nodes by size criteria. Bowel and peritoneum: No small bowel obstruction. Mildly distended distal fluid-filled loops of small bowel. Possible mild wall thickening also seen in the distal colon. Nondilated appendix No rim enhancing abscess. No drainable ascites Body wall: Unremarkable Pelvis: Unremarkable urinary bladder and reproductive organs on CT evaluation. Bones: No aggressive appearing osseous abnormality. IMPRESSION: Mild enterocolitis suspected. No bowel obstruction. Other findings above. No significant discrepancy from the preliminary report. Labs 09/14/24 06:00 09/14/24 06:00 Labs: Laboratory Results - last 24 hr 09/14/24 06:00 WBC 13.4 H RBC 4.29 Hgb 13.4 Hct 38.9 MCV 90.6 MCH 31.3 MCHC 34.5 RDW 12.4 Plt Count 345 Neut % (Auto) 67.0 Lymph % (Auto) 24.9 L [place] % (Auto) 6.9 Eos % (Auto) 0.4 L Baso % (Auto) 0.8 Neut # (Auto) 9000 H Lymph # (Auto) 3300 [place] # (Auto) 900 Eos # (Auto) 100 Baso # (Auto) 100 Sodium 137 Potassium 3.5 Chloride 109 H Carbon Dioxide 20 L BUN 4 L Creatinine 0.58 Estimated GFR > 60 BUN/Creatinine Ratio 6.9 Glucose 87 Calcium 8.3 L Total Bilirubin 0.7 AST 60 H ALT 56 H Alkaline Phosphatase 69 Total Protein 6.3 Albumin 3.7 Globulin 2.6 Albumin/Globulin Ratio 1.4 PFSH Medical History Heart palpitations Bartholin cyst (~2012) Eczema Anisocoria Skin rash Surgical History History of breast reconstruction (~2020) History of removal of skin mole [place] teeth extracted Family History Father Skin cancer Grandfather Skin cancer Prostate cancer Hypertension Rheumatoid arthritis Grandmother Ovarian cyst H/O: hysterectomy Stroke Osteoarthritis Mother Arthritis Social History marital status: unmarried,living together number of children: 0 household members: significant other lives independently: Yes caregiver/support person: No housing: house pets and animals: Yes (2 cats, 1 dog) education level: college occupational status: employed current occupational exposures/hazards: No special philip needs: No travel history: over 6 months ago seatbelt use: always helmet use: Yes water heater temp set < 120 deg: Yes working smoke detector in home: Yes fire extinguisher in home: Yes carbon monox detector in home: Yes firearms in home: Yes firearms unloaded and locked: Yes do you feel safe at home: Yes Smoking Status: Never smoker second hand exposure: No alcohol intake: never substance use type: does not use during the past year weight has: decreased > 10 lbs well-balanced diet: about half the time daily servings fruits/ve-4 caffeine: Yes (aware of 200mg limit) Type(s) of exercise: aerobic and bicycling Discharge Assessment & Plan Assessment and Plan Assessment: status post laparoscopic cholecystectomy Plan of Treatment: discharged to home. The patient is to follow up in the surgical clinic within the next 7-10 days Discharge Plan Discharge Plan Patient Disposition: Home Discharge orders & Medications Prescriptions: New acetaminophen 325 mg Tablet 650 mg PO Q6H Qty: 90 0RF ibuprofen 200 mg capsule 400 mg PO Q6H Qty: 100 0RF hydromorphone 2 mg tablet 2 mg PO Q4H PRN (Reason: pain) Qty: 30 0RF Continued DHA 200 mg capsule PO loratadine [Allergy Relief (loratadine)] 10 mg tablet 10 mg PO DAILY mecobalamin (vitamin B12) 1,000 mcg tablet,disintegrating 1,000 mcg sublingual DAILY Rx Instructions: place tablet under tongue and allow to dissolve for at least30 secs before swallowing ferrous sulfate 325 mg (65 mg iron) tablet 325 mg PO DAILY propranolol 10 mg tablet 10 mg PO BID PRN (Reason: anxiety) Qty: 30 0RF L norgest/e.estradiol-e.estrad [Ashlyna] 0.15 mg-30 mcg (84)/10 mcg (7) tablets,dose pack,3 month 1 tab PO Q24H Qty: 182 3RF bupropion HCl 150 mg tablet extended release 24 hr 300 mg PO DAILY Qty: 180 3RF buspirone 5 mg tablet 5 mg PO BID Qty: 60 3RF gabapentin 300 mg capsule 300 mg PO BEDTIME Qty: 30 2RF fluoxetine 10 mg tablet 10 mg PO DAILY Qty: 30 0RF Follow up/Referrals: Pilar Graham MD [Primary Care Provider, Family Practice] Diet/Activity/Treatments Diet: Regular Visit Report/Discharge Packet Instructions: DI for Laparoscopic Cholecystectomy Stand Alone Forms: Patient Portal/API Discharge Data Primary Care Provider: Pilar Graham Quality VTE Deep Vein Thrombosis/Pulmonary Embolism Present on Admission: No [facility] PROFEE Charge Codes Discharge inpatient/observation: 85238
--- NOTE | 2024-09-14 10:20 | CM.DPNOTE ---
DCP Continued: Reviewed EMR and team rounds for pt?s medical status. Per hospitalist, pt cleared to discharge today. Discharge orders placed by MD, no dc needs identified. Plan: Anticipating dc home with partner to transport on 09/14. CM Team will continue to follow for coordination of discharge plans. LEO Vincent
--- NOTE | 2024-09-14 10:32 | P.DS_ITS ---
History of Present Illness History of Present Illness Chief complaint: chest pain, back pain Discharge Providers Provider Date of admission: 09/13/24 03:45 Discharge Date: 09/14/24 Primary care physician: Pilar Graham MD Consults: 09/13/24 13:00 Consult to Discharge Planning Routine Comment: Discharge provider: Sherrie Lovett MD Summary Hospital Course Discharge Diagnosis: See discharge summary completed by surgical service Status at Discharge Cognitive/behavioral status at discharge: at baseline, oriented Functional status at discharge: independent ambulation Overall status at discharge: patient is progressing back to baseline Exam Vital Signs (past 8 hours): - 09/14/24 07:00 09/14/24 08:00 Temperature 97.6 F Pulse Rate 87 Respiratory Rate 15 Blood Pressure 114/82 Pulse Oximetry 100 Oxygen Delivery Method Room Air Oxygen Flow Rate 0 Oxygen Delivery Method Room Air Oxygen Flow Rate 0 Narrative Exam Narrative: GEN: Very pleasant adult female, Alert and oriented x 3, NAD HEENT:NC, Face symmetric CHEST: Respiratory excursions symmetric, CTAB CV: RRR, no M/R/G ABD: Soft, NT/ND, BT present in all 4 quadrants, no organomegaly or masses, dressings over laparoscopic incisions EXTR: warm, well perfused, no C/C/E SKIN: warm and dry, no rash NEURO: Alert and oriented x 3, nonfocal Objective Labs 09/14/24 06:00 09/14/24 06:00 Labs: Laboratory Results - last 24 hr 09/14/24 06:00 WBC 13.4 H RBC 4.29 Hgb 13.4 Hct 38.9 MCV 90.6 MCH 31.3 MCHC 34.5 RDW 12.4 Plt Count 345 Neut % (Auto) 67.0 Lymph % (Auto) 24.9 L [place] % (Auto) 6.9 Eos % (Auto) 0.4 L Baso % (Auto) 0.8 Neut # (Auto) 9000 H Lymph # (Auto) 3300 [place] # (Auto) 900 Eos # (Auto) 100 Baso # (Auto) 100 Sodium 137 Potassium 3.5 Chloride 109 H Carbon Dioxide 20 L BUN 4 L Creatinine 0.58 Estimated GFR > 60 BUN/Creatinine Ratio 6.9 Glucose 87 Calcium 8.3 L Total Bilirubin 0.7 AST 60 H ALT 56 H Alkaline Phosphatase 69 Total Protein 6.3 Albumin 3.7 Globulin 2.6 Albumin/Globulin Ratio 1.4 [facility] Medical History Heart palpitations Bartholin cyst (~2012) Eczema Anisocoria Skin rash Surgical History History of breast reconstruction (~2020) History of removal of skin mole [place] teeth extracted Family History Father Skin cancer Grandfather Skin cancer Prostate cancer Hypertension Rheumatoid arthritis Grandmother Ovarian cyst H/O: hysterectomy Stroke Osteoarthritis Mother Arthritis Social History marital status: unmarried,living together number of children: 0 household members: significant other lives independently: Yes caregiver/support person: No housing: house pets and animals: Yes (2 cats, 1 dog) education level: college occupational status: employed current occupational exposures/hazards: No special philip needs: No travel history: over 6 months ago seatbelt use: always helmet use: Yes water heater temp set < 120 deg: Yes working smoke detector in home: Yes fire extinguisher in home: Yes carbon monox detector in home: Yes firearms in home: Yes firearms unloaded and locked: Yes do you feel safe at home: Yes Smoking Status: Never smoker second hand exposure: No alcohol intake: never substance use type: does not use during the past year weight has: decreased > 10 lbs well-balanced diet: about half the time daily servings fruits/ve-4 caffeine: Yes (aware of 200mg limit) Type(s) of exercise: aerobic and bicycling Discharge Assessment & Plan Assessment and Plan Assessment: status post laparoscopic cholecystectomy Plan of Treatment: discharged to home. The patient is to follow up in the surgical clinic within the next 7-10 days Discharge Plan Discharge Plan Patient Disposition: Home Provider Discharge Comment: With regard to your constipation, add Benefiber 2 year routine daily. Ensure you are staying hydrated. Drink at least 2 L of water daily. Take MiraLax 1/2 capful once a day to 1 capful up to 3 times a day. If you are unable to have a bowel movement in 48 hours, trial warm prune juice with a patch of melted butter. If that is ineffective, add oral Dulcolax. If that is ineffective, take milk of magnesia every 4 hours until you successfully move your bowels (up to 4 doses). Return to the ED: Fevers, chills, inability to hold down food, fluids or medications. Increased redness to incisions. Intractable nausea or vomiting. Discharge orders & Medications Prescriptions: New acetaminophen 325 mg Tablet 650 mg PO Q6H Qty: 90 0RF ibuprofen 200 mg capsule 400 mg PO Q6H Qty: 100 0RF hydromorphone 2 mg tablet 2 mg PO Q4H PRN (Reason: pain) Qty: 30 0RF Continued DHA 200 mg capsule PO loratadine [Allergy Relief (loratadine)] 10 mg tablet 10 mg PO DAILY mecobalamin (vitamin B12) 1,000 mcg tablet,disintegrating 1,000 mcg sublingual DAILY Rx Instructions: place tablet under tongue and allow to dissolve for at least30 secs before swallowing ferrous sulfate 325 mg (65 mg iron) tablet 325 mg PO DAILY propranolol 10 mg tablet 10 mg PO BID PRN (Reason: anxiety) Qty: 30 0RF L norgest/e.estradiol-e.estrad [Ashlyna] 0.15 mg-30 mcg (84)/10 mcg (7) tablets,dose pack,3 month 1 tab PO Q24H Qty: 182 3RF bupropion HCl 150 mg tablet extended release 24 hr 300 mg PO DAILY Qty: 180 3RF buspirone 5 mg tablet 5 mg PO BID Qty: 60 3RF gabapentin 300 mg capsule 300 mg PO BEDTIME Qty: 30 2RF fluoxetine 10 mg tablet 10 mg PO DAILY Qty: 30 0RF Follow up/Referrals: Pilar Graham MD [Primary Care Provider, Family Practice] Discharge Health Status Multidrug resistant organism: No MDRO Diet/Activity/Treatments Diet: Diet as Tolerated and Regular Activity: As tolerated Oxygen: N/A Visit Report/Discharge Packet Instructions: DI for Laparoscopic Cholecystectomy, [facility]: Wound Care Stand Alone Forms: Patient Portal/API Discharge Data Primary Care Provider: Pilar Graham Quality VTE Deep Vein Thrombosis/Pulmonary Embolism Present on Admission: No
--- NOTE | 2024-09-14 13:42 | PC.NURSE ---
Pt discharged home at 1335, escorted off floor in wheelchair accompanied by spouse and hospital staff. IV removed, discharge teaching completed including new medications, worsening symptoms and follow up appointment. Patient left the floor with all belongings.
== END 2024-09-14 13:46 | disposition home or self-care (01) | DRG 419 ==
LOC: ED 01:30 → AC 04:40
PROVIDERS: Surgery Trauma Surgery; Admitting Provider Internal Medicine; Emergency Provider Emergency Medicine; PCP Family Medicine; Referring Provider Emergency Medicine; Visit Provider Internal Medicine
PROC: 0FT44ZZ Resection of Gallbladder, Percutaneous Endoscopic Approach (ICD-10-PCS; CPT 47562; principal; 2024-09-13 10:30)
DX: K80.12 Calculus of gallbladder with acute and chronic cholecystitis without obstruction (principal); E86.0 Dehydration; G25.81 Restless legs syndrome; F41.9 Anxiety disorder, unspecified; K59.00 Constipation, unspecified
CPT/HCPCS: 36415; 71275; 74177; 76705; 80053; 80305; 80320; 80329; 81001; 82550; 83605; 83690; 83735; 83880; 84145; 84443; 84484; 84703; 85025; 85379; 85610; 85730; 87040; 87633; 93005; 96361; 96374; 96375; 96376; 99284; G0480; J0131; J1100; J1171; J1885; J2250; J2270; J2405; J2704; J3010; J3410; J3490; Q9967

== ENCOUNTER → 2024-10-05 10:57 | Outpatient (CLI) | payer OTHER, SELFPAY ==
[2024-09-18 14:56] VITALS: BMI 26.2
[2024-10-05 12:37] LABS: HEMOLYSIS < 15 (0-50)
[2024-10-05 18:19] LABS: Alanine Aminotransferase 18 IU/L (<35); Albumin 4.6 g/dL (3.5-5.0); Albumin Globulin Ratio 1.8 (1.0-2.8); Alkaline Phosphatase 88 U/L (38-126); Blood Urea Nitrogen 9 mg/dL (7-17); Calcium 9.6 mg/dL (8.4-10.2); Carbon Dioxide 20 mmol/L (22-32); Chloride 107 mmol/L (98-107); Estimated Glomerular Filt Rate > 60 mL/min (>60); Globulin 2.6 g/dL (1.7-4.1); Glucose 82 mg/dL (70-99); Potassium 3.8 mmol/L (3.4-5.1); Sodium 139 mmol/L (137-145); Total Protein 7.2 g/dL (6.3-8.2)
[2024-10-05 18:33] LABS: TSH w/ Reflex to FT4 0.99 uIU/mL (0.47-4.68)
[2024-10-06 04:40] LABS: Ferritin 60 ng/mL (6-137)
== END ==
PROVIDERS: PCP Family Medicine; Referring Provider Family Medicine; Visit Provider Family Medicine
DX: K81.0 Acute cholecystitis (principal); Z86.39 Personal history of other endocrine, nutritional and metabolic disease; R00.2 Palpitations; K59.00 Constipation, unspecified
CPT/HCPCS: 36415; 80053; 82728; 83540; 84443

== ENCOUNTER → 2024-11-06 12:53 | Outpatient (CLI) | payer OTHER, SELFPAY ==
[2024-09-18 14:56] VITALS: BMI 26.2
[2024-11-06 14:08] LABS: Add Manual Diff / Slide Review NO; Hematocrit 43.3 % (36-46); Hemoglobin 14.8 g/dL (12.0-16.0); Lymphocytes Absolute Auto 2700 /uL (1100-4500); Mean Corpuscular HGB Conc 34.1 % (30-36); Mean Corpuscular Hemoglobin 30.9 PG (26-34); Mean Corpuscular Volume 90.6 fL (80-100); Platelet Count 429 X10^3/uL (150-400)
[2024-11-06 14:20] LABS: Alanine Aminotransferase 20 IU/L (<35); Albumin 4.7 g/dL (3.5-5.0); Albumin Globulin Ratio 1.7 (1.0-2.8); Alkaline Phosphatase 82 U/L (38-126); Blood Urea Nitrogen 8 mg/dL (7-17); Calcium 9.5 mg/dL (8.4-10.2); Carbon Dioxide 20 mmol/L (22-32); Chloride 109 mmol/L (98-107); Estimated Glomerular Filt Rate > 60 mL/min (>60); Globulin 2.7 g/dL (1.7-4.1); Glucose 77 mg/dL (70-99); HEMOLYSIS < 15 (0-50); Potassium 4.1 mmol/L (3.4-5.1); Sodium 140 mmol/L (137-145); Total Protein 7.4 g/dL (6.3-8.2)
== END ==
PROVIDERS: PCP Family Medicine; Referring Provider Family Medicine; Visit Provider Family Medicine
DX: R17 Unspecified jaundice (principal); R19.5 Other fecal abnormalities
CPT/HCPCS: 80053; 82248; 85025

== ENCOUNTER → 2024-11-12 12:53 | Outpatient (CLI) | payer OTHER, SELFPAY ==
[2024-09-18 14:56] VITALS: BMI 26.2
[2024-11-12 14:26] LABS: Clostridium Difficile Tox PCR Negative for C. diff (Negative)
== END ==
PROVIDERS: PCP Family Medicine; Referring Provider Family Medicine; Visit Provider Family Medicine
DX: R19.5 Other fecal abnormalities (principal)
CPT/HCPCS: 87493

== ENCOUNTER → 2024-11-30 12:57 | Outpatient (CLI) | payer OTHER, SELFPAY ==
[2024-09-18 14:56] VITALS: BMI 26.2
[2024-11-30 15:00] LABS: Alanine Aminotransferase 27 IU/L (<35); Albumin 4.3 g/dL (3.5-5.0); Albumin Globulin Ratio 1.7 (1.0-2.8); Alkaline Phosphatase 89 U/L (38-126); Blood Urea Nitrogen 10 mg/dL (7-17); Calcium 9.5 mg/dL (8.4-10.2); Carbon Dioxide 21 mmol/L (22-32); Chloride 108 mmol/L (98-107); Estimated Glomerular Filt Rate > 60 mL/min (>60); Globulin 2.6 g/dL (1.7-4.1); Glucose 99 mg/dL (70-99); HEMOLYSIS < 15 (0-50); Lipase 152 U/L (23-300); Potassium 4.1 mmol/L (3.4-5.1); Sodium 139 mmol/L (137-145); Total Protein 6.9 g/dL (6.3-8.2)
[2024-11-30 15:37] LABS: Thyroid Stimulating Hormone 1.02 uIU/mL (0.47-4.68)
[2024-11-30 16:13] LABS: Folate > 20.0 ng/mL (2.76-20.0); Vitamin B12 824 pg/mL (239-931)
== END ==
PROVIDERS: PCP Family Medicine; Referring Provider Physician Assistant; Visit Provider Physician Assistant
DX: K59.00 Constipation, unspecified (principal)
CPT/HCPCS: 80053; 82607; 82746; 83690; 84443

== ENCOUNTER → 2024-12-28 12:42 | Outpatient (CLI) | payer OTHER, SELFPAY ==
[2024-09-18 14:56] VITALS: BMI 26.2
== END ==
PROVIDERS: PCP Family Medicine; Visit Provider Family Medicine
DX: R82.90 Unspecified abnormal findings in urine (principal)
CPT/HCPCS: 87077; 87086; 87186

== ENCOUNTER → 2025-01-21 07:50 | Outpatient (CLI) | payer OTHER, SELFPAY ==
[2024-09-18 14:56] VITALS: BMI 26.2
--- NOTE | 2025-01-21 07:51 | DI.US.S_ITS ---
PROCEDURE: US PELVIC COMPLETE INDICATIONS: AUB TECHNIQUE: Real-time scanning was performed of the pelvic organs, with image documentation. Additional endovaginal scanning was necessary due to incomplete visualization of the adnexal and endometrial structures by transabdominal scanning. COMPARISON: [facility], , US PELVIC COMPLETE, 11/15/2022, 12:27. FINDINGS: Uterus: Uterus is anteverted and normal in size at 7.9 x 8.8 x 4.9 cm. The myometrium is homogeneous. The endometrium measures 2 mm combined thickness. No uterine fibroids identified. Ovaries: The right ovary measures 2.6 x 1.2 x 1.8 cm, with a calculated ovarian volume of 5.2 cc. The left ovary measures 2.1 x 1.6 x 1.3 cm, with a calculated ovarian volume of 2.9 cc. The ovaries have a normal sonographic appearance. Less than 12 follicles can be seen in each ovary. No adnexal masses are seen. Other: No pathologic free abdominal or pelvic fluid. IMPRESSION: No source for abnormal uterine bleeding identified. Dictated by: Percy Champion [facility] Interpreted: Bertram Fitch MD on 01/21/2025 at 9:48 Transcribed by: DWIGHT on 01/21/2025 at 9:51 Approved by: Bertram Fitch M.D. on 01/21/2025 at 11:32
[2025-01-21 09:16] LABS: Add Manual Diff / Slide Review NO; Hematocrit 41.5 % (36-46); Hemoglobin 14.2 g/dL (12.0-16.0); Lymphocytes Absolute Auto 2000 /uL (1100-4500); Mean Corpuscular HGB Conc 34.3 % (30-36); Mean Corpuscular Hemoglobin 30.8 PG (26-34); Mean Corpuscular Volume 89.7 fL (80-100); Platelet Count 391 X10^3/uL (150-400)
[2025-01-21 09:26] LABS: Appearance Urine UA CLEAR; Bilirubin Urine UA NEGATIVE (NEGATIVE); Color Urine UA YELLOW; Glucose Urine UA NEGATIVE (Negative); Ketones Urine UA NEGATIVE (NEGATIVE); Leukocyte Esterase Urine UA 1+ (NEGATIVE); Nitrite Urine UA NEGATIVE (Negative); Occult Blood Urine UA NEGATIVE (Negative); Protein Urine UA NEGATIVE (Negative); Specific Gravity Urine UA 1.010 (1.000-1.035); Urobilinogen Urine UA 0.2 E.U./dL (0.2)
[2025-01-21 09:31] LABS: pH Urine UA 6.5 (4.5-8.0)
[2025-01-21 09:32] LABS: Culture Indicated Urine Specimen Cultured
[2025-01-21 09:56] LABS: Follicle Stimulating Hormone < 0.66 mIU/mL
[2025-01-21 10:10] LABS: TSH w/ Reflex to FT4 1.25 uIU/mL (0.47-4.68)
== END ==
PROVIDERS: PCP Family Medicine; Referring Provider Family Medicine; Visit Provider Family Medicine
DX: N93.9 Abnormal uterine and vaginal bleeding, unspecified (principal); R82.90 Unspecified abnormal findings in urine
CPT/HCPCS: 36415; 76856; 81001; 83001; 83002; 84146; 84443; 85025; 87086